=== PATIENT | female | born 1990 | race Caucasian/White ===

== ENCOUNTER → 2018-10-14 14:12 | Outpatient (CLI) | payer SELFPAY ==
[2018-10-18 10:48] LABS: HPV Reflexed? NOT INDICATED
== END ==
PROVIDERS: Visit Provider Obstetrics & Gynecology
DX: Z12.4 Encounter for screening for malignant neoplasm of cervix (principal)
CPT/HCPCS: 88175; G0145

== ENCOUNTER → 2018-11-02 15:10 | Outpatient (CLI) | payer MEDICAID, SELFPAY | PROVIDERS: Referring Provider Otolaryngology; Visit Provider Otolaryngology | DX: J32.9 Chronic sinusitis, unspecified (principal) | CPT/HCPCS: 87070; 87205 ==

== ENCOUNTER → 2019-05-24 15:17 | Outpatient (CLI) | payer MEDICAID, SELFPAY | PROVIDERS: Family Provider Family Medicine; PCP Family Medicine; Referring Provider Otolaryngology Otolaryngology/Facial Plastic Surgery; Visit Provider Otolaryngology Otolaryngology/Facial Plastic Surgery | DX: J02.9 Acute pharyngitis, unspecified (principal) | CPT/HCPCS: 87070; 87186 ==

== ENCOUNTER → 2019-06-22 15:00 | Outpatient (CLI) | payer MEDICAID, SELFPAY | PROVIDERS: Family Provider Family Medicine; PCP Family Medicine; Referring Provider Otolaryngology Otolaryngology/Facial Plastic Surgery; Visit Provider Otolaryngology Otolaryngology/Facial Plastic Surgery | DX: Z86.14 Personal history of Methicillin resistant Staphylococcus aureus infection (principal) | CPT/HCPCS: 87070; 87205 ==

== ENCOUNTER → 2020-08-01 15:49 | Outpatient (CLI) | payer OTHER, SELFPAY ==
[2020-08-01 17:56] LABS: Absolute Lymphocyte Count 1.53 X10^3/uL (0.83-4.51); Absolute Neutrophil Count 6.1 X10^3/uL (2.0-7.7); Basophil# 0.04 X10^3/uL; Basophil% 0.5 % (0-1); Eosinophil# 0.22 X10^3/uL; Eosinophils% 2.6 % (0-5); Hematocrit 42.8 % (37-47); Hemoglobin 13.5 g/dL (12.0-15.0); Lymphocyte # 1.53 X10^3/ul (4.0); Mean Corp Hgb Conc 31.5 g/dL (32-36); Mean Corpuscular Volume 88.8 fL (81-99); Mean Platelet Vol. 10.1 fl (6.2-12.0); Monocyte# 0.55 X10^3/uL; Monocyte% 6.5 % (0-10); NRBC Flagged by Analyzer 0 % (0-5); Neutrophil # 6.13 X10^3/uL (2.7-7.7); Platelet Count 282 K/mm3 (150-450); RBC Distribution Width CV 12.9 % (11.6-14.6); RBC Distribution Width SD 42.1 fl (35.1-43.9); Red Blood Count 4.82 M/mm3 (4.2-5.4); White Blood Count 8.5 K/mm3 (4.4-11.0)
[2020-08-02 09:34] LABS: HIV - WCH Non-Reactive (Nonreactive); Hepatitis B Surface Antigen Non-Reactive (Nonreactive); Hepatitis C Antibody Non-Reactive (Nonreactive); Rubella IgG Reactive (Nonreactive)
[2020-08-03 03:40] LABS: Prenatal RPR NONREACTIVE (NONREACTIVE)
[2020-08-03 20:08] LABS: Chlamydia By Nucleic Acid AMP Negative (Negative)
[2020-08-04 07:51] LABS: Gonococcus By Nucleic Acid AMP Negative (Negative)
[2020-08-07 12:53] LABS: HPV APTIMA, High Risk Negative (Negative)
== END ==
PROVIDERS: PCP Family Medicine; Visit Provider Obstetrics & Gynecology
DX: Z12.4 Encounter for screening for malignant neoplasm of cervix (principal); Z11.3 Encounter for screening for infections with a predominantly sexual mode of transmission; Z34.81 Encounter for supervision of other normal pregnancy, first trimester
CPT/HCPCS: 36415; 85025; 86703; 86762; 86803; 87086; 87340; 87491; 87591; 87624; 88175; G0145

== ENCOUNTER → 2020-12-08 15:27 | Outpatient (CLI) | payer OTHER, SELFPAY ==
[2020-12-08 15:54] LABS: Hematocrit 37.2 % (37-47); Mean Corp Hgb Conc 32.3 g/dL (32-36); Mean Corpuscular Hgb 29.1 pg (27.0-32.0); Mean Corpuscular Volume 90.3 fL (81-99); Mean Platelet Vol. 10.1 fl (6.2-12.0); Platelet Count 224 K/mm3 (150-450); RBC Distribution Width CV 13.2 % (11.6-14.6); RBC Distribution Width SD 42.8 fl (35.1-43.9); Red Blood Count 4.12 M/mm3 (4.2-5.4)
[2020-12-08 16:24] LABS: Glucose Challenge Gest 1H 50g 149 mg/dL (70-140)
== END ==
PROVIDERS: PCP Family Medicine; Visit Provider Obstetrics & Gynecology
DX: Z34.82 Encounter for supervision of other normal pregnancy, second trimester (principal)
CPT/HCPCS: 36415; 82950; 85027

== ENCOUNTER → 2020-12-12 06:52 | Outpatient (CLI) | payer OTHER, SELFPAY ==
[2020-12-12 08:56] LABS: Glucose GTT-Gestation. Fasting 74 mg/dL (<105)
[2020-12-12 10:09] LABS: Glucose GTT-Gestational 1 Hr 122 mg/dL (<190)
[2020-12-12 10:21] LABS: Glucose GTT-Gestational 2 Hr 109 mg/dL (<165)
[2020-12-12 11:30] LABS: Glucose GTT-Gestational 3 Hr 65 L (<145)
== END ==
PROVIDERS: PCP Family Medicine; Referring Provider Obstetrics & Gynecology; Visit Provider Obstetrics & Gynecology
DX: O24.912 Unspecified diabetes mellitus in pregnancy, second trimester (principal); Z3A.00 Weeks of gestation of pregnancy not specified
CPT/HCPCS: 36415; 82951; 82952

== ENCOUNTER → 2021-01-02 16:31 | Outpatient (CLI) | payer OTHER, SELFPAY | PROVIDERS: PCP Family Medicine; Visit Provider Obstetrics & Gynecology | DX: Z34.83 Encounter for supervision of other normal pregnancy, third trimester (principal) | CPT/HCPCS: 36415; 86850 ==

== ENCOUNTER → 2021-02-27 17:17 | Outpatient (CLI) | payer OTHER, SELFPAY | PROVIDERS: PCP Family Medicine; Visit Provider Obstetrics & Gynecology | DX: Z36.85 Encounter for antenatal screening for Streptococcus B (principal) | CPT/HCPCS: 87081 ==

== ENCOUNTER 2021-03-26 17:05 | Outpatient (CLI) | payer OTHER, SELFPAY ==
[2021-03-26 17:13] VITALS: BMI 38.5
[2021-03-26 17:41] VITALS: PULSE 61; TEMP 36.4; O2SAT 97
[2021-03-26 17:47] VITALS: BP 125/67; PULSE 61; O2SAT 94
[2021-03-26 18:04] LABS: ROM Internal Control Test YES-OK TO RESULT pt. (Internal QC); ROM Patient Test Negative (Negative)
--- NOTE | 2021-03-26 21:49 | OB.TRI.NOTE ---
HPI - General HPI Narrative STEFANIE TA, is a 30 F who presents with leakage of fluid PFSH PFSH Home Medications hydroxyzine pamoate 25 mg PO TID PRN PRN #10 capsule 03/20/15 [Rx Last Taken Unknown] Tiffany 1 tab PO.IVFORM DAILY 03/26/21 [History Last Taken Unknown] Prenatabs FA 1 tab PO.IVFORM DAILY 03/26/21 [History Last Taken Unknown] Allergy/AdvReac Type Severity Reaction Status Date / Time ENVIRONMENTAL Allergy Other Uncoded 03/19/19 15:41 Social History (System 03/19/19 @ 15:41 by Beth Matson) Smoking Status: Never smoker NST FHR Rate Baby A Baseline: 130 Variability:: Moderate Accelerations:: 15 x 15 Decelerations:: None NST Reactive:: Yes Uterine Activity:: Few contractions Assessment & Plan (1) : PLAN: Arrived with leakage of fluid. Ruled out rupture. Okay to discharge home . okay to follow-up at scheduled appointments
== END 2021-03-26 18:38 | disposition home or self-care (01) ==
LOC: WPOUT 17:11 → WP 17:11
PROVIDERS: PCP Family Medicine; Visit Provider Obstetrics & Gynecology
DX: Z34.90 Encounter for supervision of normal pregnancy, unspecified, unspecified trimester (principal)
CPT/HCPCS: 59025; 59050; 84112; 99218; G0378

== ENCOUNTER 2021-03-31 10:18 | Outpatient (CLI) | payer OTHER, SELFPAY ==
[2021-03-31 10:31] VITALS: BMI 38.3
[2021-03-31 10:37] VITALS: TEMP 36.3
[2021-03-31 10:38] VITALS: BP 143/85; PULSE 85
[2021-03-31 11:24] LABS: ROM Internal Control Test YES-OK TO RESULT pt. (Internal QC); ROM Patient Test Negative (Negative)
--- NOTE | 2021-03-31 11:38 | OB.TRI.NOTE ---
HPI - General HPI Narrative STEFANIE TA, is a 30 F who presents with leakage of fluid PFSH PFSH Home Medications Tiffany 1 tab PO.IVFORM DAILY 03/26/21 [History Last Taken 03/31/21] Prenatabs FA 1 tab PO.IVFORM DAILY 03/26/21 [History Last Taken 03/31/21] famotidine [Pepcid AC] 10 mg PO BID 03/31/21 [History Last Taken 03/30/21] Allergy/AdvReac Type Severity Reaction Status Date / Time ENVIRONMENTAL Allergy Other Uncoded 03/19/19 15:41 Social History (System 03/19/19 @ 15:41 by Beth Matson) Smoking Status: Never smoker NST FHR Rate Baby A Baseline: 130 Variability:: Moderate Accelerations:: 15 x 15 NST Reactive:: Yes Uterine Activity:: Few contractions Assessment & Plan (1) : PLAN: Patient arrives with leakage of fluid, negative ROM. Ruled out rupture. Okay to discharge home and follow-up at scheduled appointments
== END 2021-03-31 11:44 | disposition home or self-care (01) ==
LOC: WPOUT 10:26 → WP 10:27
PROVIDERS: PCP Family Medicine; Referring Provider Obstetrics & Gynecology; Visit Provider Obstetrics & Gynecology
DX: Z34.90 Encounter for supervision of normal pregnancy, unspecified, unspecified trimester (principal)
CPT/HCPCS: 59025; 59050; 84112; 99218; G0378

== ENCOUNTER 2021-04-02 04:50 | Inpatient (IN) | payer OTHER, SELFPAY ==
[2021-04-01 23:56] VITALS: PULSE 66; O2SAT 98
[2021-04-02] VITALS (38 sets, daily range): BP systolic 90–151; BP diastolic 44–91; PULSE 58–100; RESP 16–18; TEMP 35.4–37.5; O2SAT 96–99; BMI 38.3
[2021-04-02] MEDS: Lactated Ringers 1,000 ML 50 ML IV (05:00)
[2021-04-02 05:29] LABS: Absolute Lymphocyte Count 1.34 X10^3/uL (0.83-4.51); Absolute Neutrophil Count 10.6 X10^3/uL (2.0-7.7); Basophil# 0.02 X10^3/uL; Basophil% 0.2 % (0-1); Eosinophil# 0.11 X10^3/uL; Eosinophils% 0.9 % (0-5); Hematocrit 40.9 % (37-47); Hemoglobin 13.2 g/dL (12.0-15.0); Lymphocyte # 1.34 X10^3/ul (0.83-4.51); Lymphocyte % 10.4 % (19-41); Mean Corp Hgb Conc 32.3 g/dL (32-36); Mean Corpuscular Hgb 28.9 pg (27.0-32.0); Mean Corpuscular Volume 89.5 fL (81-99); Mean Platelet Vol. 11.4 fl (6.2-12.0); Monocyte% 6.2 % (0-10); NRBC Flagged by Analyzer 0 % (0-5); Neutrophil % 81.8 % (47-70); Platelet Count 216 K/mm3 (150-450); RBC Distribution Width CV 13.5 % (11.6-14.6); RBC Distribution Width SD 44.4 fl (35.1-43.9); Red Blood Count 4.57 M/mm3 (4.2-5.4); White Blood Count 12.9 K/mm3 (4.4-11.0)
--- NOTE | 2021-04-02 06:06 | PCM.HP.BLA ---
History and Physical Date of Admission: 04/02/21 Chief complaint: Contractions History of present illness: 30-year-old G1, P0 at 41 weeks and 0 days with RENAE 03/26/2021 by LMP arrives with contractions. Denies headache, chest pain, shortness of breath, nausea vomiting, right upper quadrant pain. Patient states good movement. Obstetric history: G1: Current Past medical history: None Medications: vitamin Past surgical history: Tonsils and adenoids, myringotomy, wisdom teeth extraction Allergies: No known drug allergies Family history: Denies history DVT or PE Social history: Denies smoking, alcohol use, drug use Review of systems: Besides the above pertinent positives a full review of systems was performed and found to be negative Physical exam: Vitals: Blood pressure 112/60 pulse 86 temp 99.1 General: Normal-appearing no acute distress HEENT: Normocephalic atraumatic no cervical of adenopathy Cardiac/respiratory: No use of accessory muscles, nonlabored breathing Abdomen: Soft, nontender, gravid Extremities: No peripheral edema normal peripheral pulses Psych: Normal affect normal demeanor nonpressured speech Labs: White blood cell count 12.9 hemoglobin 13.2 hematocrit 40.9% platelets 216. Assessment plan: 30-year-old G1, P0 at 41 weeks arrives in labor Admit labor and delivery CEFM GBS negative Educated patient on epidural and AROM. At this time for expectant management Routine orders Anesthesia to see
[2021-04-02] MEDS: Mag Hydrox/Al Hydrox/Simeth 30 ML UDC PO (08:11)
--- NOTE | 2021-04-02 12:49 | PN.OBGYN_ITS ---
Subjective Subjective Patient going natural, tolerating painful contractions Objective Data Objective Data Vital Signs: Vital Signs Temp Pulse BP Pulse Ox 98.2 F 74 135/77 H 99 04/02/21 12:27 04/02/21 12:27 04/02/21 12:27 04/02/21 09:36 Weight: 259 lb 9.6 oz Body Mass Index (BMI) 38.3 Intake & Output: Intake and Output for Last 24 Hours 03/31/21 04/01/21 04/02/21 23:59 23:59 23:59 Intake Total 1600 / 1600 Output Total 300 / 300 Balance 1300 / 1300 Lab / Micro Data Result Diagrams: 04/02/21 05:20 Labs: Laboratory Results - last 24 hr 04/02/21 05:20: WBC 12.9 H, RBC 4.57, Hgb 13.2, Hct 40.9, MCV 89.5, MCH 28.9, MCHC 32.3, RDW Std Deviation 44.4 H, RDW Coeff of Billie 13.5, Plt Count 216, MPV 11.4, Immature Gran % (Auto) 0.500, Neut % (Auto) 81.8 H, Lymph % (Auto) 10.4 L, [place] % (Auto) 6.2, Eos % (Auto) 0.9, Baso % (Auto) 0.2, Absolute Neuts (auto) 10.6 H, Absolute Lymphs (auto) 1.34, Nucleated RBC % 0 04/02/21 05:20: Blood Type O NEGATIVE, Antibody Screen NEGATIVE Micro: Microbiology 04/02/21 06:30 Nasal Secretion SARS-CoV-2 Antigen (Rapid) - Final Physical Exam Const alert, oriented x3, average body habitus, healthy appearing and well nourished HEENT normocephalic and moist oral mucous membranes Head and Scalp: atraumatic Face and Sinus: normal facial exam Neck full ROM Resp normal respiratory effort, no retractions and no use of accessory muscles Narrative: Cervical exam 8/80/0 Extremity normal to inspection and full ROM Skin no rashes or lesions noted Psych mental status grossly normal, affect normal, speech normal and activity/motor behavior normal Assessment & Plan (1) : PLAN: Patient seen and examined. Going natural, tolerating painful contractions. AROM clear fluid. We will continue current management
[2021-04-02] MEDS: Oxytocin 30 units/NS 500 ml 30 UNITS/500 ML IV.SOLN IV (16:15)
--- NOTE | 2021-04-02 16:46 | PN.OBGYN_ITS ---
Subjective Subjective Pushing with contractions Objective Data Objective Data Vital Signs: Vital Signs Temp Pulse BP Pulse Ox 96.4 F L 100 128/85 H 99 04/02/21 16:25 04/02/21 16:25 04/02/21 16:25 04/02/21 16:25 Weight: 259 lb 9.6 oz Body Mass Index (BMI) 38.3 Intake & Output: Intake and Output for Last 24 Hours 03/31/21 04/01/21 04/02/21 23:59 23:59 23:59 Intake Total 1625.27 / 1625.27 Output Total 300 / 300 Balance 1325.27 / 1325.27 Lab / Micro Data Result Diagrams: 04/02/21 05:20 Labs: Laboratory Results - last 24 hr 04/02/21 05:20: WBC 12.9 H, RBC 4.57, Hgb 13.2, Hct 40.9, MCV 89.5, MCH 28.9, MCHC 32.3, RDW Std Deviation 44.4 H, RDW Coeff of Billie 13.5, Plt Count 216, MPV 11.4, Immature Gran % (Auto) 0.500, Neut % (Auto) 81.8 H, Lymph % (Auto) 10.4 L, [place] % (Auto) 6.2, Eos % (Auto) 0.9, Baso % (Auto) 0.2, Absolute Neuts (auto) 10.6 H, Absolute Lymphs (auto) 1.34, Nucleated RBC % 0 04/02/21 05:20: Blood Type O NEGATIVE, Antibody Screen NEGATIVE Micro: Microbiology 04/02/21 06:30 Nasal Secretion SARS-CoV-2 Antigen (Rapid) - Final Physical Exam Const alert, oriented x3, average body habitus, healthy appearing and well nourished HEENT normocephalic and moist oral mucous membranes Head and Scalp: atraumatic Face and Sinus: normal facial exam Neck full ROM Resp normal respiratory effort, no retractions and no use of accessory muscles GI normal to inspection, nondistended, normoactive bowel sounds Narrative: Cervical exam 10/100/+1 mild to moderate caput Psych mental status grossly normal, affect normal, speech normal and activity/motor behavior normal Assessment & Plan (1) : PLAN: Patient seen and examined. Patient has been pushing greater than 3 hours. Based on pelvic exam poor candidate for vacuum or forceps delivery. Patient very exhausted from pushing, discussed continued pushing versus primary section for failure to progress maternal exhaustion. Risk benefits alternatives of both scenarios discussed. Patient elects for primary section, patient understands risk of the procedure include but are not limited to visceral or vascular injury, prolonged hospitalization, blood loss and need for transfusion, reoperation. Patient dates understanding wish to proceed. All questions answered. For now 2 g Ancef and 500 mg of azithromycin
[2021-04-02] MEDS: Sodium Citrate/Citric Acid 30 ML UDC PO (17:14)
[2021-04-02] MEDS: Cefazolin 2 GM in 0.9% Normal Saline 100 ML IV (17:16)
--- NOTE | 2021-04-02 18:37 | OP.PCM_ITS ---
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 Normal uterus, tubes, and ovaries. Right lateral extension of the hysterotomy hemostatic with interrupted suture and 5 cc of FloSeal Consent: Patient arrived in labor at term, soon became complete, pushed for greater than 3 hours and had failure to progress maternal exhaustion elected for primary section. Patient understood the risk of the procedure include but are not limited to visceral or vascular injury, prolonged hospitalization, blood loss and need for transfusion, reoperation. Patient stated understanding and wished to proceed. All questions were answered and consent was signed. Procedure: Patient was brought back to the OR where spinal anesthesia was found to be adequate. 2 g of Ancef and 500 mg of azithromycin were given for infection prophylaxis. Patient was prepared and draped in a supine position with a leftward tilt. A Pfannenstiel incision was made at the skin with a scalpel. The incision was carried down to the fascia with a scalpel. The fascia was excised and extended laterally. Inferior aspect of the fascia was grasped and the underlying rectus and pyramidalis muscle were dissected off sharply with Paulino scissors. In a similar fashion the superior aspect the fascia was grasped and the underlying rectus muscle was dissected off sharply. Rectus muscle was dissected at the midline down to the level of the pubic symphysis. Preperitoneal fatty tissue was noted and peritoneum was entered bluntly. Bladder blade was inserted and vesicouterine peritoneum was identified. Low transverse hysterotomy was made. Hand was placed into the incision and head was brought into the hysterotomy and gentle fundal pressure was applied after the bladder blade was removed. Head and shoulders were delivered with ease. Cord was cut clamped. Baby is handed off to nursing. Placenta was delivered via cord traction and fundal massage. IV oxytocin was initiated to facilitate uterine contractions. Uterus was wiped out with a dry laparotomy sponge in order to remove remaining placental membranes. Uterus was exteriorized. Uterus was closed in continuous running fashion. Second layer was performed. Right lateral extension was noted in interrupted stitch was placed along with 5 cc of FloSeal. Good hemostasis was noted. Uterus was placed back in the abdominal cavity and good hemostasis was noted. Rectus muscle were reapproximated with horizontal mattress sutures. Fascia was closed in a continuous running fashion. Skin was closed in a subcuticular fashion. All counts correct x2. Patient tolerated the procedure well and was brought to recovery in stable condition.
[2021-04-02] MEDS: Oxytocin 30 units/NS 500 ml 30 UNITS/500 ML IV.SOLN 167 UNITS IV (19:18)
[2021-04-02] MEDS: Ketorolac 30 MG/ML Syringe IV (19:21)
[2021-04-02] MEDS: Acetaminophen 500 MG Tablet 1000 MG PO (19:21)
[2021-04-02] MEDS: 0.9% Saline Lock 10 ML Syringe IV (19:22)
[2021-04-02] MEDS: Lactated Ringers 500 ML IV.SOLN. IV (19:55)
[2021-04-02] MEDS: Lactated Ringers 1,000 ML 100 ML IV (20:22)
[2021-04-03] VITALS (9 sets, daily range): BP systolic 97–126; BP diastolic 45–70; PULSE 73–85; RESP 14–18; TEMP 36.5–37.2; O2SAT 96–99
[2021-04-03] MEDS: Ketorolac 30 MG/ML Syringe IV ×3 (01:09→13:18)
[2021-04-03] MEDS: Acetaminophen 500 MG Tablet 1000 MG PO ×4 (01:10→19:49)
[2021-04-03] MEDS: 0.9% Saline Lock 10 ML Syringe IV ×4 (05:50→13:20)
[2021-04-03 06:13] LABS: Hemoglobin 9.6 g/dL (12.0-15.0); Mean Corp Hgb Conc 33.1 g/dL (32-36); Mean Corpuscular Hgb 29.6 pg (27.0-32.0); Mean Corpuscular Volume 89.5 fL (81-99); Platelet Count 168 K/mm3 (150-450); RBC Distribution Width CV 13.7 % (11.6-14.6); RBC Distribution Width SD 45.1 fl (35.1-43.9); Red Blood Count 3.24 M/mm3 (4.2-5.4); White Blood Count 13.6 K/mm3 (4.4-11.0)
--- NOTE | 2021-04-03 08:06 | PCM.PN.OB ---
Subjective Subjective No overnight complaints. Pain well controlled. Objective Data Objective Data Vital Signs: Vital Signs Temp Pulse Resp BP Pulse Ox 98.1 F 85 16 100/51 L 98 04/03/21 05:43 04/03/21 05:43 04/03/21 05:43 04/03/21 05:43 04/03/21 05:43 Oxygen Delivery Method Room Air Weight: 259 lb 9.6 oz Body Mass Index (BMI) 38.3 Intake & Output: Intake and Output for Last 24 Hours 04/01/21 04/02/21 04/03/21 23:59 23:59 23:59 Intake Total 2840.27 / 2840.27 1645 / 1645 Output Total 750 / 750 550 / 550 Balance 2090.27 / 2090.27 1095 / 1095 Lab / Micro Data Result Diagrams: 04/03/21 05:58 Labs: Laboratory Results - last 24 hr 04/03/21 05:58: WBC 13.6 H, RBC 3.24 L, Hgb 9.6 L, Hct 29.0 L, MCV 89.5, MCH 29.6, MCHC 33.1, RDW Std Deviation 45.1 H, RDW Coeff of Billie 13.7, Plt Count 168, MPV 11.0 04/03/21 05:58: Screen NEGATIVE, Baby's Blood Type O POSITIVE, Baby's XAVIER NEGATIVE Micro: Microbiology 04/02/21 06:30 Nasal Secretion SARS-CoV-2 Antigen (Rapid) - Final Physical Exam Const alert, oriented x3, no apparent distress, average body habitus, healthy appearing and well nourished HEENT normocephalic and moist oral mucous membranes Face and Sinus: normal facial exam Neck full ROM Resp normal respiratory effort, no retractions and no use of accessory muscles GI normal to inspection, nondistended, normoactive bowel sounds GI Narrative: Bandage clean dry and intact Extremity normal to inspection, full ROM and no clubbing, cyanosis or edema Skin no rashes or lesions noted and no wounds Psych mental status grossly normal, affect normal, speech normal and activity/motor behavior normal Assessment & Plan (1) delivery delivered: PLAN: Postoperative day 1 status post primary section for failure to progress. Pain well controlled. Breast-feeding. Likely discharge home tomorrow
[2021-04-03] MEDS: Enoxaparin 40 MG/0.4 ML Syringe SC (10:05)
[2021-04-03] MEDS: Senna/Docusate Sodium 1 Tablet PO (13:45)
--- NOTE | 2021-04-03 18:32 | NURSING ---
Notified regarding infants HR in the 80's when RN placed on SPo2 monitor for CCHD. RN reported to nursery RN that was asleep, good tone, and color. SP02 at that time was 97%, HR was auscultated and verified bradycardic. HR was previously 120's today. When was stimulated HR increased to baseline. okay to continue to observe and report any further abnormal findings.
[2021-04-03] MEDS: Ibuprofen 600 MG Tablet PO (19:49)
[2021-04-04] MEDS: Ibuprofen 600 MG Tablet PO ×3 (01:13→13:58)
[2021-04-04] MEDS: Acetaminophen 500 MG Tablet 1000 MG PO ×3 (01:14→13:58)
[2021-04-04 01:27] VITALS: BP 115/63; PULSE 78; RESP 20; TEMP 36.9; O2SAT 96
--- NOTE | 2021-04-04 07:20 | NURSING ---
bedside report given to Nilsa Todd RN and Yessi Ruggiero RN who are assuming care of pt at this time
[2021-04-04 08:11] VITALS: BP 107/58; PULSE 78; RESP 16; TEMP 36.8
--- NOTE | 2021-04-04 09:03 | PCM.PN.OB ---
Subjective Subjective No issues overnight. Pain is well controlled with medications. She is out of bed, ambulating, passing flatus. No bowel movement yet. Denies heavy lochia. She is . Objective Data Objective Data Vital Signs: Vital Signs Temp Pulse Resp BP Pulse Ox 97.9 F 68 16 139/66 H 96 04/04/21 13:56 04/04/21 13:56 04/04/21 13:56 04/04/21 13:56 04/04/21 01:27 Oxygen Delivery Method Room Air Weight: 117.753 kg Body Mass Index (BMI) 38.3 Intake & Output: Intake and Output for Last 24 Hours 04/02/21 04/03/21 04/04/21 23:59 23:59 23:59 Intake Total 2840.27 / 2840.27 1645 / 1645 Output Total 750 / 750 1250 / 1250 Balance 2090.27 / 2090.27 395 / 395 Lab / Micro Data Result Diagrams: 04/03/21 05:58 Micro: Microbiology 04/02/21 06:30 Nasal Secretion SARS-CoV-2 Antigen (Rapid) - Final Physical Exam Const alert, oriented x3 and no apparent distress Resp normal respiratory effort, normal air movement and clear to auscultation bilaterally Cardio regular rate, regular rhythm, S1 normal heart sound and S2 normal heart sound GI normal to inspection, nondistended, normoactive bowel sounds, soft to palpation, non-tender and non-distended GI Narrative: incisional dressing minimally saturated, dry and intact Manual OB Exam: other lochia scant Uterus Palpation: uterus fundus firm Extremity no calf tenderness Assessment & Plan (1) delivery delivered: PLAN: POD#2 /sp PLTCS O neg, O positive - Rhogam Rubella immune Hgb 9.6 Plan for d/c home later today if discharged, otherwise d/c home in am.
[2021-04-04] MEDS: Senna/Docusate Sodium 1 Tablet PO (09:59)
[2021-04-04] MEDS: Enoxaparin 40 MG/0.4 ML Syringe SC (10:00)
[2021-04-04 13:56] VITALS: BP 139/66; PULSE 68; RESP 16; TEMP 36.6
--- NOTE | 2021-04-04 16:27 | PCM.DC ---
Discharge Instructions Diet Discharge Diet: No restrictions Activity Discharge Activity: Return to Normal Activity and May Shower May resume sexual activity in: 4-6 weeks Lifting Restrictions: 10 lb Dressing / Incision Call your doctor if you observe: Using more than 1 pad per hour, Shortness of breath, Chest pain, Calf discomfort, Uncontrolled pain and - (Persistent or severe headache) Suture Line Care: Avoid Pulling/Pushing Remove Dressing in: 4 days Cleanse incision/area with: Soap & Water Follow Up Care Please Follow Up With: Shiva Vasquez MD When: 2 weeks for postop visit 6 weeks for visit Test Results: Test results from this visit will be discussed in further detail at your follow-up appointment, if applicable. Discharge Plan Admission Admit Date/Time: 04/02/21 04:50 Primary Reason for Your Visit: section Attending Provider: Shiva Vasquez Primary Care Provider: Benson Sams Instructions Patient Instructions: After a Discharge Orders/Prescriptions Prescriptions: New ibuprofen 600 mg Tablet 600 mg PO Q8H PRN (Reason: pain) Qty: 30 RF: 0 oxycodone 5 mg Tablet 5 mg PO Q6H PRN PRN (Reason: Pain Score 4-10) 7 Days Qty: 15 RF: 0 Continued Tiffany 1 tab PO.IVFORM DAILY RF: 0 Prenatabs FA 1 tab PO.IVFORM DAILY RF: 0 famotidine [Pepcid AC] 10 mg Tablet 10 mg PO BID RF: 0 Referrals / Follow Up: Benson Sams MD [Primary Care Provider] - Disposition Disposition (needs filled in before D/C Order can be placed): Home, Self Care
[2021-04-04 18:25] VITALS: BP 124/66; PULSE 81; RESP 16; TEMP 36.7
== END 2021-04-04 19:00 | disposition home or self-care (01) | DRG 788 ==
LOC: WPOUT 04:51 → WP 04:51
PROVIDERS: Admitting Provider Obstetrics & Gynecology; PCP Family Medicine; Referring Provider Obstetrics & Gynecology; Visit Provider Obstetrics & Gynecology
DX: O75.81 Maternal exhaustion complicating labor and delivery (principal); O62.2 Other uterine inertia; O48.0 Post-term pregnancy; Z3A.41 41 weeks gestation of pregnancy; Z37.0 Single live birth
CPT/HCPCS: 59025; 59050; 85025; 85027; 85461; 86850; 86900; 86901; 87426; 90384; 99218; J7120; A4216; G0378; J2405; J2790

== ENCOUNTER 2021-07-04 18:22 | Outpatient (CLI) | payer OTHER, SELFPAY ==
[2021-07-04 18:33] VITALS: BP 123/85; PULSE 96; RESP 16; TEMP 37.2; O2SAT 100; BMI 33.0
[2021-07-04] MEDS: 0.9% Saline Lock 10 ML Syringe IV (18:40)
[2021-07-04 19:10] VITALS: BP 119/78; PULSE 81; RESP 16; TEMP 36.8; O2SAT 98
[2021-07-04 19:50] VITALS: BP 121/83; PULSE 85; RESP 16; TEMP 37; O2SAT 100
== END 2021-07-04 20:12 | disposition home or self-care (01) ==
LOC: MS3OUT 18:23 → MS3 18:23
PROVIDERS: PCP Family Medicine; Referring Provider Nurse Practitioner Adult Health; Visit Provider Nurse Practitioner Adult Health
DX: Z23 Encounter for immunization (principal); U07.1 COVID-19
CPT/HCPCS: J7050; M0245; Q0245; A4216

== ENCOUNTER → 2022-06-18 | Outpatient (CLI) | payer OTHER, SELFPAY ==
[2022-06-26 14:54] LABS: HPV APTIMA, High Risk Negative (Negative)
== END | disposition home or self-care (01) ==
LOC: LABSPEC 16:12
PROVIDERS: PCP Family Medicine; Visit Provider Obstetrics & Gynecology
DX: Z12.4 Encounter for screening for malignant neoplasm of cervix (principal)
CPT/HCPCS: 36415; 87624; 88175; G0145

== ENCOUNTER → 2023-04-12 | Outpatient (CLI) | payer BC, SELFPAY ==
--- NOTE | 2023-04-12 07:57 | US_ITS ---
Examination: Right upper quadrant ultrasound INDICATION: Intermittent right upper quadrant pain. TECHNIQUE: A dedicated right upper quadrant ultrasound was obtained including Doppler imaging. COMPARISON: None FINDINGS: LIVER: The liver is diffusely echogenic. There is hepatomegaly. No discrete lesions are visualized. GALLBLADDER: There are no gallstones visualized. There is no gallbladder wall thickening or pericholecystic fluid. The common bile duct measures 3.3 mm. There is no positive sonographic Talley''s sign. Pancreas: The pancreas is within normal limits. There is no pancreatic ductal dilatation. RIGHT KIDNEY: The right kidney measures 12.6 cm in length and is within normal limits. US/Abdomen Limited IMPRESSION: Fatty infiltration of the liver associated with hepatomegaly. Electronically Signed: Marsha Hernandez MD at 8:45 EDT ,
== END | disposition home or self-care (01) ==
LOC: US 07:54
PROVIDERS: PCP Family Medicine; Referring Provider Family Medicine; Visit Provider Family Medicine
DX: R10.11 Right upper quadrant pain (principal)
CPT/HCPCS: 76705

== ENCOUNTER → 2023-04-28 | Outpatient (CLI) | payer BC, SELFPAY ==
--- NOTE | 2023-04-28 14:05 | PFTCOMP ---
COMPLETE PULMONARY FUNCTION TEST INTERPRETATION Brief HPI: Patient is a 32-year-old female, currently under the care of Dr. Gerber, who presents to [facility] for complete pulmonary function tests secondary to diagnosis of chest discomfort. Respiratory therapist reports good effort and reproducible results. Interpretation: Forced expiration spirometry shows no large airways obstructive ventilatory defect with an FEV1 of 109% predicted. There is no significant bronchodilator response by strict ATS criteria. Spirograms are of good quality and plateau normally. The respiratory flow volume loop shows a normal pattern. Lung volumes by body plethysmography show a normal total lung capacity at 6.24 L, 108% predicted. All other lung volumes are within normal limits. Diffusion capacity by carbon monoxide is normal at 118% predicted. The airway resistance is normal. No previous pulmonary function tests were available for review. Impression: These pulmonary function tests are within normal limits.
== END | disposition home or self-care (01) ==
PROVIDERS: PCP Family Medicine; Referring Provider Family Medicine; Visit Provider Family Medicine
DX: R07.89 Other chest pain (principal)
CPT/HCPCS: 94060; 94726; 94729

== ENCOUNTER → 2023-05-31 | Outpatient (CLI) | payer BC, SELFPAY ==
[2023-05-31 10:34] LABS: Absolute Lymphocyte Count 1.84 X10^3/uL (0.83-4.51); Absolute Neutrophil Count 4.6 X10^3/uL (2.0-7.7); Basophil# 0.04 X10^3/uL; Basophil% 0.5 % (0-1); Eosinophil# 0.28 X10^3/uL; Eosinophils% 3.8 % (0-5); Hematocrit 42.4 % (37-47); Hemoglobin 13.4 g/dL (12.0-15.0); Lymphocyte # 1.84 X10^3/ul (0.83-4.51); Lymphocyte % 25.3 % (19-41); Mean Corp Hgb Conc 31.6 g/dL (32-36); Mean Corpuscular Hgb 28.8 pg (27.0-32.0); Mean Platelet Vol. 10.3 fl (6.2-12.0); Monocyte# 0.52 X10^3/uL; Monocyte% 7.1 % (0-10); NRBC Flagged by Analyzer 0 % (0-5); Neutrophil # 4.58 X10^3/uL (2.7-7.7); Platelet Count 271 K/mm3 (150-450); RBC Distribution Width CV 12.6 % (11.6-14.6); RBC Distribution Width SD 41.5 fl (35.1-43.9); Red Blood Count 4.66 M/mm3 (4.2-5.4); White Blood Count 7.3 K/mm3 (4.4-11.0)
[2023-05-31 10:57] LABS: AST(SGOT) 14 U/L (15-37); Alanine Aminotransfer ALT/SGPT 33 U/L (13-56); Albumin, Serum 3.5 g/dL (3.2-5.0); Alkaline Phosphatase 49 U/L (45-117); Anion Gap 4 (5-15); BUN 14 mg/dL (7-18); BUN/Creat Ratio 22.5 RATIO (10-20); Calcium,Total 8.4 mg/dL (8.5-10.1); Chloride 108 mmol/L (98-107); Cholesterol 162 mg/dL (200); Creatinine, Serum 0.62 mg/dL (0.55-1.02); EST Glomerular Filtration Rate 117 mL/min (>60); Est Glom Filt Rate - Afr Amer 141 mL/min (>60); Globulin 3.5 g/dL (2.2-4.2); Glucose 81 mg/dL (74-106); High Density Lipoprotein 43 mg/dL; Potassium 3.9 mmol/L (3.5-5.1); Sodium Level 139 mmol/L (136-145); Triglycerides 128 mg/dL; Very Low Density Lipoprotein 26 mg/dL (5-40)
== END | disposition home or self-care (01) ==
PROVIDERS: PCP Family Medicine; Referring Provider Family Medicine; Visit Provider Family Medicine
DX: Z00.00 Encounter for general adult medical examination without abnormal findings (principal); Z13.220 Encounter for screening for lipoid disorders; Z13.1 Encounter for screening for diabetes mellitus
CPT/HCPCS: 36415; 80053; 80061; 85025

== ENCOUNTER → 2024-07-19 | Outpatient (CLI) | payer MEDICAID, SELFPAY ==
[2024-07-20 22:06] LABS: Chlamydia By Nucleic Acid AMP Negative (Negative); Gonococcus By Nucleic Acid AMP Negative (Negative)
== END | disposition home or self-care (01) ==
LOC: BWCLAB 11:31
PROVIDERS: PCP Family Medicine; Referring Provider Obstetrics & Gynecology; Visit Provider Obstetrics & Gynecology
DX: Z34.90 Encounter for supervision of normal pregnancy, unspecified, unspecified trimester (principal)
CPT/HCPCS: 87086; 87088; 87491; 87591

== ENCOUNTER → 2024-08-16 | Outpatient (CLI) | payer BC, SELFPAY ==
[2024-08-16 12:28] LABS: Absolute Lymphocyte Count 1.28 X10^3/uL (0.83-4.51); Absolute Neutrophil Count 6.5 X10^3/uL (2.0-7.7); Basophil# 0.04 X10^3/uL; Basophil% 0.5 % (0-1); Eosinophil# 0.17 X10^3/uL; Hematocrit 38.4 % (37-47); Hemoglobin 12.6 g/dL (12.0-15.0); Lymphocyte # 1.28 X10^3/ul (0.83-4.51); Lymphocyte % 15.2 % (19-41); Mean Corp Hgb Conc 32.8 g/dL (32-36); Mean Corpuscular Hgb 28.9 pg (27.0-32.0); Mean Corpuscular Volume 88.1 fL (81-99); Monocyte# 0.44 X10^3/uL; Monocyte% 5.2 % (0-10); NRBC Flagged by Analyzer 0 % (0-5); Neutrophil # 6.46 X10^3/uL (2.7-7.7); Neutrophil % 76.6 % (47-70); Platelet Count 234 K/mm3 (150-450); Red Blood Count 4.36 M/mm3 (4.2-5.4); White Blood Count 8.4 K/mm3 (4.4-11.0)
[2024-08-16 13:50] LABS: Hemoglobin A1c 5.3 % (3.8-5.6)
[2024-08-16 16:01] LABS: Hepatitis B Surface Antigen Non-Reactive (Nonreactive); Hepatitis C Antibody Non-Reactive (Nonreactive); Rubella IgG Reactive (Nonreactive); Syphilis Antibodies Non-reactive
[2024-08-17 22:09] LABS: HIV - WCH Non-Reactive (Nonreactive)
== END | disposition home or self-care (01) ==
PROVIDERS: PCP Family Medicine; Referring Provider Obstetrics & Gynecology; Visit Provider Obstetrics & Gynecology
DX: Z34.81 Encounter for supervision of other normal pregnancy, first trimester (principal)

== ENCOUNTER → 2024-12-06 | Outpatient (CLI) | payer BC, SELFPAY ==
[2024-12-06 10:37] LABS: Absolute Lymphocyte Count 1.17 X10^3/uL (0.83-4.51); Absolute Neutrophil Count 8.3 X10^3/uL (2.0-7.7); Basophil# 0.02 X10^3/uL; Basophil% 0.2 % (0-1); Eosinophil# 0.14 X10^3/uL; Eosinophils% 1.4 % (0-5); Hematocrit 36.1 % (37-47); Hemoglobin 11.9 g/dL (12.0-15.0); Lymphocyte # 1.17 X10^3/ul (0.83-4.51); Lymphocyte % 11.5 % (19-41); Mean Corpuscular Hgb 28.6 pg (27.0-32.0); Mean Corpuscular Volume 86.8 fL (81-99); Mean Platelet Vol. 10.3 fl (6.2-12.0); Monocyte# 0.52 X10^3/uL; Monocyte% 5.1 % (0-10); NRBC Flagged by Analyzer 0 % (0-5); Neutrophil # 8.26 X10^3/uL (2.7-7.7); Neutrophil % 81.1 % (47-70); Platelet Count 208 K/mm3 (150-450); RBC Distribution Width CV 14.1 % (11.6-14.6); RBC Distribution Width SD 44.6 fl (35.1-43.9); Red Blood Count 4.16 M/mm3 (4.2-5.4); White Blood Count 10.2 K/mm3 (4.4-11.0)
[2024-12-06 11:43] LABS: Glucose Challenge Gest 1H 50g 130 mg/dL (70-140); HIV Nonreactive (Nonreactive); Syphilis Antibodies Nonreactive (Nonreactive)
== END | disposition home or self-care (01) ==
LOC: BWCLAB 09:54
PROVIDERS: Visit Provider Obstetrics & Gynecology
DX: O09.90 Supervision of high risk pregnancy, unspecified, unspecified trimester (principal); Z3A.00 Weeks of gestation of pregnancy not specified
CPT/HCPCS: 36415; 82950; 85025; 86703; 86780; 86850; 86900; 86901

== ENCOUNTER 2025-01-16 20:38 | Inpatient (IN) | payer OTHER, SELFPAY ==
[2025-01-16] VITALS (8 sets, daily range): BP systolic 111–133; BP diastolic 56–75; PULSE 74–87; RESP 14–16; TEMP 36.2–36.5; O2SAT 92–98; BMI 38.7
--- OUTSIDE RECORDS SUMMARY | 2025-01-16 14:13 | XMS RPT_ITS | CCD ---
Author Organization [facility] Care Team Providers Care 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 Name Role Phone CHRISTIANNE GRIFFIN Unavailable Unavailable *SELF, REFERRED Unavailable Unavailable UNKNOWN, PCP Unavailable Unavailable Benson Das MD Primary Care Provider Benson Das MD Primary Care Provider Dr. Benson Das Primary Care Provider Elza Cui Attending Provider Unavailable MD Oleksandr Katz Primary Care Provider MD Oleksandr Katz Referring Provider [phone] MD Oleksandr Katz Other Provider Dr. Klever Huerta Attending Provider CHRISTIANNE JUNE Attending Unavailable OLEKSANDR KATZ Primary Care Unavailable MARVIN GARNER Referring Unavailable Oleksandr Katz MD Primary Care Provider [phone] Oleksandr Katz MD Referring Provider [phone] Marvin Garner CNM Attending Provider [phone] Dr. Jeaneth Kramer DO Attending Provider Dr. Jeaneth Kramer DO Referring Provider Dr. Sally Cerna MD Attending Provider [phone] Morenita Dickerson CNM Attending Provider [phone] Radha Unger Attending Provider [phone] Oleksandr Katz MD Referring Provider [phone] Dr. Jeaneth Kramer DO Attending Provider Marvin Garner CNM Attending Provider [phone] Oleksandr Katz Referring Unavailable Sally Cerna Attending Unavailable Buzz, Chalon Referring Unavailable Jb BULL, Radha Attending Unavailable Buzz, Chalon Referring Unavailable Vande Velde, Jeaneth Attending Unavailabl e Vande Velde, Jeaneth Attending Unavailabl e Vande Velde, Jeaneth Admitting Unavailabl e Vande Velde, Jeaneth Referring Unavailabl e Buzz, Chalon Primary Care Unavailable Vande Velde, Jeaneth Attending Unavailabl e Vande Velde, Jeaneth Referring Unavailabl e Vande Velde, Jeaneth Attending Unavailabl e Buzz, Chalon Primary Care Unavailable Vande Velde, Jeaneth Attending Unavailabl e Dickerson, Morenita Attending Unavailable Buzz, Chalon Referring Unavailable Buzz, Chalon Primary Care Unavailable Kelin Vance Attending Unavailable Buzz, Chalon Primary Care Unavailable Buzz, Chalon Referring Unavailable Marvin Garner Attending Unavailable Vande Velde, Jeaneth Attending Unavailabl e Buzz, Chalon Primary Care Unavailable Buzz, Chalon Referring Unavailable Sally Cerna Attending Unavailable Buzz, Chalon Referring Unavailable Marvin Garner Attending Unavailable Allergies Allergy Classification Reported Allergen(s) Allergy Type Date of Onset Reaction(s) Facility (1 source) Environmental allergy Allergy to substance 04-02-20 21 Other [facility] Work Phone: (2 sources) hormonal treatments Propensity to adverse reactions 07-04-20 21 dizziness [facility] Work Phone: (4 sources) Desogestrel / Ethinyl Estradiol Drug Allergy 04-27-20 20 Other: See Comments [facility] Work Phone: (4 sources) Dust Allergy to substance 01-16-20 16 Other: See Comments [facility] Work Phone: [phone] (4 sources) Grass pollen Drug Allergy 01-16-20 16 Cough [facility] Work Phone: (4 sources) Animal Dander Drug Allergy 01-16-20 16 Cough [facility] Work Phone: (7 sources) Seasonal Allergies: Uncoded; Translations: [Seasonal Allergies: Uncoded] Allergy to substance 03-27-20 22 NEEDS FOLLOW-UP [facility] (2 sources) Albuterol Drug Allergy 01-17-20 Other [facility] (2 sources) cigarette smoke Allergy to substance 01-17-20 Other [facility] (6 sources) Food Allergies: Uncoded; Translations: [Food Allergies: Uncoded] Allergy to substance 03-31-20 Abd cramps/diarrhe a [facility] Comment on above: Industrial grease/oi l (2 sources) Luteinizing Hormone Analogues Propensity to adverse reactions 01-08-20 dizziness [facility] (2 sources) hormonal prescriptions Allergy to substance 01-17-20 Other [facility] (3 sources) Spironolactone Drug Allergy 12-07-19 Dizzyness [facility] (1 source) Spironolactone Drug Allergy 01-04-20 [facility] Repository Medications Current Medications Medication Drug Class(es) Dates Sig (Normalized) Sig (Original) Wklymwb-Snrhmufp-Arij in-Papaya (2 sources) Start: 01-16-2023 Mpndwak-Iljwaufk-Fws ain-Papaya Active TABLET PO January 16, 2023 12:00am cholecalciferol 0.025 mg oral capsule (5 sources) Vitamin D Start: 01-16-2023 take 1 capsule by mouth once daily Cholecalciferol (Vitamin D3) 25 mcg (1,000 unit) capsule Active 25 ug PO DAILY January 16, 2023 12:00am fexofenadine (11 sources) Histamine-1 Receptor Antagonist Start: 03-26-2021 take 1 tablet by mouth once daily Tiffany Active 1 TABLET SL/PO DAILY March 26, 2021 5:53pm Start: 03-26-2021 End: 07-09-2024 Tiffany Discontinued 1 {tbl} SL/PO DAILY March 26, 2021 12:00am July 09, 2024 12:52pm Start: 03-26-2021 take 1 tablet by aba th once daily Tiffany Active 1 TABLET SL/PO DAILY March 26, 2021 12:00am Start: 03-26-2021 take 1 tablet by aba th once daily Tiffany Active 1 TABLET SL/PO DAILY March 25, 2021 11:00pm Start: 06-26-2010 take 1 tablet by aba th once daily fexofenadine (TIFFANY) 180 mg ORAL tablet Take one(1) tablet daily. 30 Tab 12 06/26/2010 Active Comment on above: Take one(1) tablet d aily. predniSONE 20 mg oral tablet (2 sources) Start: 05-12-2022 End: 05-17-2022 take 2 tablets by mouth once daily predniSONE (DELTASONE) 20 mg tablet Take 2 tablets by mouth once daily for 5 days. 10 tablet 0 05/12/2022 05/17/2022 Active Comment on above: Take 2 tablets by mo cox monett once daily for 5 days. Prenatabs FA (7 sources) Start: 03-26-2021 take 1 tablet by mouth once daily Prenatabs FA Active 1 TABLET SL/PO DAILY March 26, 2021 5:53pm Start: 03-26-2021 Prenatabs FA A ctive 1 {tbl} SL/PO DAILY March 26, 2021 12:00am Start: 03-26-2021 take 1 tablet by aba th once daily Prenatabs FA Active 1 TABLET SL/PO DAILY March 26, 2021 12:00am Start: 03-26-2021 take 1 tablet by aba th once daily Prenatabs FA Active 1 TABLET SL/PO DAILY March 25, 2021 11:00pm Vit C-Zinc Citrate-Elderberr y (Sambucus Elderberry) 30-1.1-25 mg tablet,chewable (5 sources) Start: 01-16-2023 Vit C-Zinc Cit rate-Elderberry (Sambucus Elderberry) 30-1.1-25 mg tablet,chewable Active {tbl} PO January 16, 2023 12:00am Start: 01-16-2023 Vit C-Zinc Cit rate-Elderberry (Sambucus Elderberry) 30-1.1-25 mg tablet,chewable Active TABLET PO January 16, 2023 12:00am Completed/Discontinued Medications Medication Drug Class(es) Dates Sig (Normalized) Sig (Original) amoxicillin 500 mg oral capsule (5 sources) Penicillin-class Antibacterial Start: 09-12-2022 End: 09-22-2022 take 1 capsule by mouth three times daily Amoxicillin 500 mg capsule Discontinued 500 mg PO THREE TIMES A DAY 30 September 12, 2022 1:00am September 21, 2022 1:00am September 22, 2022 1:05am Afszuyz-Eujpjtmw-Br pain-Papaya 50 mcg-1 mg- 10 mg-10 mg tablet,chewable (3 sources) Start: 01-16-2023 End: 07-09-2024 Ezgfwhp-Jwwrbgjo-S apain-Papaya 50 mcg-1 mg- 10 mg-10 mg tablet,chewable Discontinued {tbl} PO January 16, 2023 12:00am July 09, 2024 12:52pm mecobalamin 1 mg chewable tablet (5 sources) Start: 01-16-2023 End: 07-09-2024 take 1 tablet by mouth once daily Mecobalamin (Vitamin B12) 1,000 mcg tablet,chewable Discontinued 1000 ug PO DAILY January 16, 2023 12:00am July 09, 2024 12:52pm Multivitamin (Daily Multi-Vitamin) tablet (5 sources) Start: 01-16-2023 End: 07-09-2024 Multivitamin (Daily Multi-Vitamin) tablet Discontinued 1 {tbl} PO DAILY January 16, 2023 12:00am July 09, 2024 12:52pm Start: 01-16-2023 take 1 tablet by aba th once daily Multivitamin (Daily Multi-Vitamin) tablet Active 1 TABLET PO DAILY January 16, 2023 12:00am olopatadine 2 mg/ml ophthalmic solution (5 sources) Histamine-1 Receptor Inhibitor Start: 01-16-2023 End: 07-09-2024 Olopatadine 0.2 % drops Discontinued 1 NMA OPHTHALMIC DAILY January 16, 2023 12:00am July 09, 2024 12:52pm vit/iron fum/folic ac (-FOLIC ACID ORAL) (4 sources) vit/iro n fum/folic ac (-FOLIC ACID ORAL) Take by mouth once daily. 0 Active Comment on above: Take by mouth once d aily. Problems Active Problems Problem Classification Problem Date Documented Da te Episodic/Chronic Asthma (2 sources) Asthma; Translations: [Unspecified asthma, uncomplicated] 01-16-2023 Chronic Immunizations and screening for infectious disease (1 source) Encounter for immunization; Translations: [Encounter for immunization] Onset: Episodic Malaise and fatigue (1 source) Fatigue; Translations: [Other fatigue] Episodic Other complications of ; puerperium affecting management of mother (2 sources) delivery - delivered; Translations: [Encounter for delivery without indication] Episodic Other complications of ; puerperium affecting management of mother (5 sources) Deliveries by ; Translations: [Encounter for delivery without indication] 04-03-2021 Episodic Other complications of (18 sources) Maternal obesity complicating , childbirth and the puerperium, antepartum; Translations: [Obesity complicating , unspecified trimester] 12-06-2024 Chronic Comment on above: BMI 33.7, HgBA1C ord ered w/NOB labs Other complications of (1 source) Obesity complicating , unspecified trimester; Translations: [Obesity complicating , unspecified trimester] Onset: 5 Chronic Other complications of (18 sources) Multigravida of advanced maternal age; Translations: [Supervision of elderly multigravida, unspecified trimester] 12-06-2024 Episodic Comment on above: discussed delivery b y 40 weeks, growth US at 36 Other complications of (18 sources) High risk ; Translations: [Supervision of high risk , unspecified, unspecified trimester] 12-06-2024 Episodic Comment on above: [id number], RENAE 5, boy John PC: Marsha, : Jason Other complications of (18 sources) RhD negative; Translations: [Other specified related conditions, unspecified trimester] 12-06-2024 Episodic Comment on above: O-, Per Sharmaine baby is Rh - no need for Rhogam Other complications of (1 source) Supervision of high risk , unspecified, unspecified trimester; Translations: [Supervision of high risk , unspecified, unspecified trimester] Onset: 5 Episodic Other gastrointestinal disorders (17 sources) Irritable bowel syndrome; Translations: [Irritable bowel syndrome without diarrhea] 01-16-2023 Chronic Other gastrointestinal disorders (1 source) Irritable bowel syndrome without diarrhea; Translations: [Irritable bowel syndrome, unspecified] Onset: 5 Chronic Other gastrointestinal disorders (5 sources) Gastrointestinal tract problem; Translations: [Other specified symptoms and signs involving the digestive system and abdomen] 01-16-2023 Episodic Other nutritional; endocrine; and metabolic disorders (7 sources) Body mass index 30+ - obesity; Translations: [Body mass index (BMI) 34.0-34.9, adult] 07-04-2021 Chronic Other and delivery including normal (20 sources) ; Translations: [Encounter for supervision of normal , unspecified, unspecified trimester] Onset: 5 04-08-2021 Episodic Comment on above: NIPT low risk, decli polo carrier and ntd. Other upper respiratory disease (20 sources) Seasonal allergy; Translations: [Other seasonal allergic rhinitis] Onset: 1 05-16-2021 Chronic Other upper respiratory disease (1 source) Other seasonal allergic rhinitis; Translations: [Other seasonal allergic rhinitis] Onset: 5 Chronic Other upper respiratory infections (1 source) Pharyngitis; Translations: [Acute pharyngitis, unspecified] Episodic Unclassified (4 sources) Normal breast feeding; Translations: [Normal breast feeding] 07-04-2021 Viral infection (7 sources) Disease caused by 2019-nCoV; Translations: [COVID-19] 07-04-2021 Episodic Past or Other Problems Problem Classification Problem Date Documented Da te Episodic/Chronic Cardiac dysrhythmias (5 sources) Palpitations; Translations: [Palpitations] Onset: 11-14-2021 Episodic Other complications of (1 source) Supervision of elderly multigravida, unspecified trimester; Translations: [Supervision of elderly multigravida, unspecified trimester] Onset: 09-23-2024 Episodic Other complications of (1 source) Other specified related conditions, unspecified trimester; Translations: [Other specified related conditions, unspecified trimester] Onset: 09-23-2024 Episodic Other screening for suspected conditions (not mental disorders or infectious disease) (8 sources) Patient encounter status; Translations: [Encounter for screening for diabetes mellitus] Onset: 05-16-2021 Episodic Previous (1 source) Maternal care for unspecified type scar from previous delivery; Translations: [Maternal care for unspecified type scar from previous delivery] Onset: 09-23-2024 Episodic Residual codes; unclassified (1 source) Unspecified blood type, Rh negative; Translations: [Unspecified blood type, Rh negative] Onset: 09-23-2024 Episodic Residual codes; unclassified (1 source) 18 weeks gestation of ; Translations: [18 weeks gestation of ] Onset: 09-23-2024 Episodic Residual codes; unclassified (1 source) 8 weeks gestation of ; Translations: [8 weeks gestation of ] Onset: 07-30-2024 Episodic Screening and history of mental health and substance abuse codes (5 sources) H/O: anxiety state; Translations: [Personal history of other mental and behavioral disorders] Onset: 03-29-2015 Episodic Results Test Name Value Interpretation Reference Range Facility [facility] Office Visit Reporton 01-03-2025 [facility] Office Visit Report [facility] [address], [address] [place] [address] OFFICE VISIT Date of Service: 01/03/25 MR#: [id number] Acct: [id number] Name: REA DAHL Rep #: [id number] : 1990 Provider: ANTHONY Bravo ams Age/Sex: 34/F Location: [facility] [place] Status: Signed Intake Vital Signs 08/16/24 11:22 12/20/24 10:25 01/03/25 09:54 Height 5 ft 9.25 in 5 ft 9.25 in 5 ft 9.25 in Weight: 260 lb BMI 38.1 BP 128/78 H Intake Visit Reasons: 32 wk ob Chief Complaint: 32wk OB Audio Visual Aids Director Required: No Is patient in pain?: No Allergies spironolactone Allergy (Mild, Verified 01/03/25 09:54) Dizzyness Food Allergies: Uncoded Allergy (Verified 01/03/25 09:54) Abd cramps/diarrhea Seasonal Allergies: Uncoded (environmental) Allergy (Verified 01/03/25 09:54) NEEDS FOLLOW-UP Medications ???Medication ???Instructions ???Recorded ???Confirmed ???Type Prenatabs FA 1 tab PO/SL DAILY 01/03/25 History cholecalciferol (vitamin D3) 25 25 mcg PO DAILY 01/16/23 01/03/25 History mcg (1,000 unit) capsule vitamin C 30 mg-zinc citrate 1.1 tab PO 01/16/23 01/03/25 History mg-elderberry 25 mg chewable tablet (Sambucus Elderberry) Last Menstrual Period: 05/20/24 : No Have you fallen in the past year?: No PFSH PFSH Medical History Hx of ovarian cyst Irritable bowel syndrome Gastrointestinal problem Seasonal allergies Surgical History Hx of section History of surgery Family History Mother Anxiety Asthma Arthritis Grandfather Asthma Arthritis CVA (cerebral vascular accident) Grandfather Diabetes Myocardial infarction Father Melanoma Parkinsons Lewy body dementia Grandmother Alzheimers disease Aunt Alzheimers disease Other Mental disorder Social History adopted: No household members: spouse, family and children number of children: 1 current occupational status: unemployed current occupation: [employer] current occupational exposures/hazards: No pets and animals: Yes ( taking care litter box ) pets and animals: cat(s) and dog(s) history of recent travel: Yes ([place] in July 2024) out of state: Yes out of country: No sexually active: Yes Smoking Status: Never smoker alcohol intake: current alcohol intake frequency: holidays/special occasions only details: Not while substance use type: does not use well-balanced diet: daily or most days caffeine: Yes Type: coffee eating out: 1-3 times/week what type of physical activity do you participate in: walking and bicycling frequency: 3-4 times per week duration: 15-30 minutes/day leticia/druze: Islam seatbelt use: always do you feel safe at home: Yes 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 Date Name GA/Weeks Outcome Route Bth Weight Infant Gen Labor Lgth Anesthesia Del Locatn Provider FOB 04/02/21 Marsha 41 live - full term 8lbs Female [address] [facility] [address] Shiva Gomez Delivery Date: 04/02/21 Last Updated by: Kelin Vance RN Failure to progress/ intolerance HPI 32 wk ob Details: REA DAHL is a 34 year old who presents for routine OB visit. OB Visit RENAE Calculator Estimated Delivery Date Method Current WG Current Estimate 02/24/25 LMP (Certain) 32w 4d Other Estimates 02/23/25 Ultrasound #1 32w 5d Expected Delivery Route/Plan patient counseled regarding risks/benefits of trial of labor versus repeat . ACOG/uptodate education given to patient. 43 % likelihood of success per calculator TOLAC consent form signed: [] Specific Issue/Plans Covid status: [] Flu vaccine: [] Tdap vaccine: [] Rhogam: baby Rh neg, deferred LARC form signed: yes Problem list reviewed and updated with the most current plan of care details and appropriate orders placed. Relevant counseling for the gestational age provided. Continue routine care and follow up unless otherwise noted in visit notes/problem list details Initial Weight: Not Recorded Date -???-???-???-???-??? -???-???-???-???-??? -???-???- EGA Weight BP Urine Prot -???-???-???-???-??? -???-???-???-???-??? -???-???- Glucose FHR FuHt Pres Dilation -???-???-???-???-??? -???-???-???-???-??? -???-???- Effaced St Visit Note 07/19/24 -???-???-???-???-??? -???-???-???-???-??? -???-??? (more content not included)... Normal [facility] - Chemistry and C hemistry - challengeOrdered By: Sally Cerna on 12-20-2024 Glucose Ql (U) Negative [facility] - UrinalysisOrder ed By: Sally Cerna on 12-20-2024 Protein Ql (U) Negative [facility] Office Visit Reporton 12-20-2024 Car [facility] Office Visit Report [facility] [address] [place] [address], [address] [place] [address] OFFICE VISIT Date of Service: 12/20/24 MR#: [id number] Acct: [id number] Name: REA DAHL Rep #: [id number] : 1990 Provider: Dr. Sally walton MD Age/Sex: 34/F Location: [facility] [place] Status: Signed Intake Vital Signs 07/19/24 10:31 12/06/24 09:45 12/20/24 10:18 12/20/24 10:25 Height 5 ft 9.25 in 5 ft 9.25 in 5 ft 9 in 5 ft 9.25 in Weight: 258 lb 6 oz BMI 38.1 BP 110/51 L Intake Visit Reasons: 30 wk ob Audio Visual Aids Director Required: No Is patient in pain?: No Allergies spironolactone Allergy (Mild, Verified 12/20/24 10:18) Dizzyness Food Allergies: Uncoded Allergy (Verified 12/20/24 10:18) Abd cramps/diarrhea Seasonal Allergies: Uncoded (environmental) Allergy (Verified 12/20/24 10:18) NEEDS FOLLOW-UP Medications ???Medication ???Instructions ???Recorded ???Confirmed ???Type Prenatabs FA 1 tab PO/SL DAILY 12/20/24 History cholecalciferol (vitamin D3) 25 25 mcg PO DAILY 01/16/23 12/20/24 History mcg (1,000 unit) capsule vitamin C 30 mg-zinc citrate 1.1 tab PO 01/16/23 12/20/24 History mg-elderberry 25 mg chewable tablet (Sambucus Elderberry) Last Menstrual Period: 05/20/24 Zika: Zika virus screening: Negative : No PFSH PFSH Medical History Hx of ovarian cyst Irritable bowel syndrome Gastrointestinal problem Seasonal allergies Surgical History Hx of section History of surgery Family History Mother Anxiety Asthma Arthritis Grandfather Asthma Arthritis CVA (cerebral vascular accident) Grandfather Diabetes Myocardial infarction Father Melanoma Parkinsons Lewy body dementia Grandmother Alzheimers disease Aunt Alzheimers disease Other Mental disorder Social History adopted: No household members: spouse, family and children number of children: 1 current occupational status: unemployed current occupation: [employer] current occupational exposures/hazards: No pets and animals: Yes ( taking care litter box ) pets and animals: cat(s) and dog(s) history of recent travel: Yes ([place] in July 2024) out of state: Yes out of country: No sexually active: Yes Smoking Status: Never smoker alcohol intake: current alcohol intake frequency: holidays/special occasions only details: Not while substance use type: does not use well-balanced diet: daily or most days caffeine: Yes Type: coffee eating out: 1-3 times/week what type of physical activity do you participate in: walking and bicycling frequency: 3-4 times per week duration: 15-30 minutes/day leticia/druze: Islam seatbelt use: always do you feel safe at home: Yes 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 Date Name GA/Weeks Outcome Route Bth Weight Infant Gen Labor Lgth Anesthesia Del Locatn Provider FOB 04/02/21 Marsha 41 live - full term 8lbs Female [address] Shiva Gomez Delivery Date: 04/02/21 Last Updated by: Kelin Vance RN Failure to progress/ intolerance HPI 30 wk ob Details: REA DAHL is a 34 year old who presents for routine OB visit. OB Visit RENAE Calculator Estimated Delivery Date Method Current WG Current Estimate 02/24/25 LMP (Certain) 30w 4d Other Estimates 02/23/25 Ultrasound #1 30w 5d Expected Delivery Route/Plan patient counseled regarding risks/benefits of trial of labor versus repeat . ACOG/uptodate education given to patient. 43 % likelihood of success per calculator TOLAC consent form signed: [] Specific Issue/Plans Covid status: [] Flu vaccine: [] Tdap vaccine: [] Rhogam: baby Rh neg, deferred LARC form signed: yes Problem list reviewed and updated with the most current plan of care details and appropriate orders placed. Relevant counseling for the gestational age provided. Continue routine care and follow up unless otherwise noted in visit notes/problem list details Initial Weight: Not Recorded Date -???-???-???-???-??? -???-???-???-???-??? -???-???- EGA Weight BP Urine Prot -???-???-???-???-??? -???-???-???-???-??? -???-???- Glucose FHR FuHt Pres Dilation -???-???-???-???-??? -???-???-???-???-??? -???-???- Effaced St Visit Note 07/19/24 -???-???-???-???-??? -??? (more content not included)... Normal [facility] Absolute lymphocyte countOrd ered By: Jeaneth Lezama on 12-06-2024 Lymphocytes Auto (Unsp spec) [#/Vol] 1.17 10*3/uL 0.83-4.51 [facility] Absolute neutrophil countOrd ered By: Jeaneth Lezama on 12-06-2024 Neutrophils (Bld) [#/Vol] 8.3 10*3/uL High 2.0-7.7 [facility] Automated lymphocyte count a s percentage of total leukocytesOrdered By: Jeaneth Lezama on 12-06-2024 Lymphocytes/100 WBC Auto (Unsp spec) 11.5 % Low 19-41 [facility] Basophil percentageOrdered B y: Jeaneth Lezama on 12-06-2024 Basophils/100 WBC (Bld) 0.2 % 0-1 [facility] CBC W/Diff, Automatedon Absolute Lymph 1.17 X10 3/uL Normal 0.83-4.51 [facility] Comment on above: Performed By: #### L 501.0250, L3890.6006, L509.8002, BTS, L100.0100 ####[facility] [id number] [place], [address] Absolute Neut 8.3 X10 3/uL High 2.0-7.7 [facility] Comment on above: Performed By: #### L 501.0250, L3890.6006, L509.8002, BTS, L100.0100 ####[facility] [address] [place], [address] Basophils/100 WBC (Bld) 0.2 % Normal 0-1 [facility] Comment on above: Performed By: #### L 501.0250, L3890.6006, L509.8002, BTS, L100.0100 ####[facility] [id number] [place], [address] Eosinophils/100 WBC (Bld) 1.4 % Normal 0-5 [facility] Comment on above: Performed By: #### L 501.0250, L3890.6006, L509.8002, BTS, L100.0100 ####[facility] [address] [place], [address] Erythrocyte distribution width (RBC) [Ratio] 14.1 % Normal 11.6-14.6 [facility] Comment on above: Performed By: #### L 501.0250, L3890.6006, L509.8002, BTS, L100.0100 ####[facility] [address] [place], [address] Hematocrit (Bld) [Volume fraction] 36.1 % Low 37-47 [facility] Comment on above: Performed By: #### L 501.0250, L3890.6006, L509.8002, BTS, L100.0100 ####[facility] [address] [place], [address] Hemoglobin (Bld) [Mass/Vol] 11.9 g/dL Low 12.0-15.0 [facility] Comment on above: Performed By: #### L 501.0250, L3890.6006, L509.8002, BTS, L100.0100 ####[facility] [address] [place], [address] IG% 0.700 Normal 0.0-0.9 [facility] Comment on above: Result Comment: IG% - Immature Granulocytes (promyelocytes, myelocytes and metamyelocytes) > 1% indicates that a LEFT SHIFT is Present. Performed By: #### L 501.0250, L3890.6006, L509.8002, BTS, L100.0100 ####[facility] [address] [place], [address] Lymphocytes/100 WBC (Bld) 11.5 % Low 19-41 [facility] Comment on above: Performed By: #### L 501.0250, L3890.6006, L509.8002, BTS, L100.0100 ####[facility] [address] [place], [address] MCH (RBC) [Entitic mass] 28.6 pg Normal 27.0-32.0 [facility] Comment on above: Performed By: #### L 501.0250, L3890.6006, L509.8002, BTS, L100.0100 ####[facility] [address] [place], [address] MCHC (RBC) [Mass/Vol] 33.0 g/dL Normal 32-36 [facility] Comment on above: Performed By: #### L 501.0250, L3890.6006, L509.8002, BTS, L100.0100 ####[facility] [address] [place], [address] MCV (RBC) [Entitic vol] 86.8 fL Normal 81-99 [facility] Comment on above: Performed By: #### L 501.0250, L3890.6006, L509.8002, BTS, L100.0100 ####[facility] [address] [place], [address] Monocytes/100 WBC (Bld) 5.1 % Normal 0-10 [facility] Comment on above: Performed By: #### L 501.0250, L3890.6006, L509.8002, BTS, L100.0100 ####[facility] [address] [place], [address] Neutrophils/100 WBC (Bld) 81.1 % High 47-70 [facility] Comment on above: Performed By: #### L 501.0250, L3890.6006, L509.8002, BTS, L100.0100 ####[facility] [address] [place], [address] Nucleated RBC (Bld) [#/Vol] 0 10*3/uL Normal 0-5 [facility] Comment on above: Performed By: #### L 501.0250, L3890.6006, L509.8002, BTS, L100.0100 ####[facility] [address] [place], [address] Platelet mean volume (Bld) [Entitic vol] 10.3 fL Normal 6.2-12.0 [facility] Comment on above: Performed By: #### L 501.0250, L3890.6006, L509.8002, BTS, L100.0100 ####[facility] [address] [place], [address] Platelets (Bld) [#/Vol] 208 10*3/uL Normal 150-450 [facility] Comment on above: Performed By: #### L 501.0250, L3890.6006, L509.8002, BTS, L100.0100 ####[facility] [address] [place], [address] RBC (Bld) [#/Vol] 4.16 10*6/uL Low 4.2-5.4 [facility] Comment on above: Performed By: #### L 501.0250, L3890.6006, L509.8002, BTS, L100.0100 ####[facility] [address] [place], [address] RDW SD 44.6 fl High 35.1-43.9 [facility] Comment on above: Performed By: #### L 501.0250, L3890.6006, L509.8002, BTS, L100.0100 ####[facility] [address] [place], [address] WBC (Bld) [#/Vol] 10.2 10*3/uL Normal 4.4-11.0 [facility] Comment on above: Performed By: #### L 501.0250, L3890.6006, L509.8002, BTS, L100.0100 ####[facility] [address] [place], [address] Eosinophil percentageOrdered By: Jeaneth Lezama on 12-06-2024 Eosinophils/100 WBC (Bld) 1.4 % 0-5 [facility] Erythrocyte distribution wid th ratioOrdered By: Jeaneth Lezama on 12-06-2024 Erythrocyte distribution width (RBC) [Ratio] 14.1 % 11.6-14.6 [facility] Erythrocyte distribution wid th standard deviationOrdered By: Jeaneth Lezama on 12-06-2024 Erythrocyte distribution width (RBC) [Ratio] 44.6 fl High 35.1-43.9 [facility] Glucose Challenge Gest 1H 50 cb 12-06-2024 GLU GEST 50g 1H 130 mg/dL Normal 70-140 [facility] Comment on above: Performed By: #### L 501.0250, L3890.6006, L509.8002, BTS, L100.0100 ####[facility] [address] [place], [place], [id number] Glucose measurement at 2 ezequiel rs post-dose gestational glucose tolerance testOrdered By: Jeaneth Lezama on 12-06-2024 Glucose [Mass/Vol] 130 mg/dL 70-140 [facility] HIVon 12-06-2024 HIV Non-Reactive Normal Nonreactive [facility] Comment on above: Result Comment: Non- Reactive Reactive Repeatedly reactive samples must be confirmed according to CDC recommended confirmatory algorithms. The subresults for either HIVAG or AHIV can be used as an aid in the selection of the confirmation algorithm for reactive samples. Send out specimens with Reactive results to [facility] for confirmation. Order the HIV antibody detection and differentiation: lc#[id number] Performed By: #### L 501.0250, L3890.6006, L509.8002, BTS, L100.0100 ####[facility] [address] [place], [place], [id number] Hematocrit Auto (Bld) [Volum e fraction]Ordered By: Jeaneth Lezama on 12-06-2024 Hematocrit (Bld) [Volume fraction] 36.1 % Low 37-47 [facility] Hemoglobin measurementOrdere d By: Jeaneth Lezama on 12-06-2024 Hemoglobin (Bld) [Mass/Vol] 11.9 g/dL Low 12.0-15.0 [facility] Immature granulocytes/100 WB C Auto (Bld)Ordered By: Jeaneth Lezama on 12-06-2024 Immature granulocytes/100 WBC (Bld) 0.700 % 0.0-0.9 [facility] Comment on above: IG% - Immature Granu locytes (promyelocytes, myelocytes and metamyelocytes) > 1% indicates that a LEFT SHIFT is Present. Laboratory - Chemistry and C hemistry - challengeOrdered By: Radha Muhammad on 12-06-2024 Glucose Ql (U) Negative [facility] Laboratory - UrinalysisOrder ed By: Radha Muhammad on 12-06-2024 Protein Ql (U) Negative [facility] MCV (mean corpuscular volume ) determinationOrdered By: Jeaneth Lezama on 12-06-2024 MCV (RBC) [Entitic vol] 86.8 fL 81-99 [facility] Mean corpuscular hemoglobin (MCH) determinationOrdered By: Jeaneth Lezama on 12-06-2024 MCH (RBC) [Entitic mass] 28.6 pg 27.0-32.0 [facility] Mean corpuscular hemoglobin concentration (MCHC) determinationOrdered By: Jeaneth Lezama on 12-06-2024 MCHC (RBC) [Mass/Vol] 33.0 g/dL 32-36 [facility] Mean platelet volume determi nationOrdered By: Jeaneth Lezama on 12-06-2024 Platelet mean volume (Bld) [Entitic vol] 10.3 fL 6.2-12.0 [facility] Monocyte percentageOrdered B y: Jeaneth Lezama on 12-06-2024 Monocytes/100 WBC (Bld) 5.1 % 0-10 [facility] Neutrophil percentageOrdered By: Jeaneth Lezama on 12-06-2024 Neutrophils/100 WBC (Bld) 81.1 % High 47-70 [facility] No Panel InformationOrdered By: Jeaneth Lezama on 12-06-2024 HIV (1&2) Antibody Non-Reactive Nonreactive [facility] Comment on above: Non-ReactiveReactive Repeatedly reactive samples must be confirmed according to CDC recommended confirmatory algorithms. The subresults for either HIVAG or AHIV can be used as an aid in the selection of the confirmation algorithm for reactive samples.Send out specimens with Reactive results to [facility] for confirmation.Order the HIV antibody detection and differentiation: #[id number] Nucleated red blood cell per centageOrdered By: Jeaneth Lezama on 12-06-2024 Nucleated RBC/100 WBC (Bld) [Ratio] 0 % 0-5 [facility] Office Visit Reporton 12-06-2024 [facility] Office Visit Report [facility] [address], [address] [place] [address] OFFICE VISIT Date of Service: 12/06/24 MR#: [id number] Acct: [id number] Name: REA DAHL Rep #: [id number] : 1990 Provider: MAURO burkett Age/Sex: 34/F Location: [facility] [place] Status: Signed Intake Vital Signs 07/19/24 10:31 12/06/24 09:45 Height 5 ft 9.25 in 5 ft 9.25 in Weight: 256 lb BMI 37.5 BP 123/80 H Intake Visit Reasons: 28 wk ob/glucose Audio Visual Aids Director Required: No Is patient in pain?: No Allergies spironolactone Allergy (Mild, Verified 12/06/24 10:02) Dizzyness Food Allergies: Uncoded Allergy (Verified 12/06/24 10:02) Abd cramps/diarrhea Seasonal Allergies: Uncoded (environmental) Allergy (Verified 12/06/24 10:02) NEEDS FOLLOW-UP Medications ???Medication ???Instructions ???Recorded ???Confirmed ???Type Prenatabs FA 1 tab PO/SL DAILY 12/06/24 History cholecalciferol (vitamin D3) 25 25 mcg PO DAILY 01/16/23 12/06/24 History mcg (1,000 unit) capsule vitamin C 30 mg-zinc citrate 1.1 tab PO 01/16/23 12/06/24 History mg-elderberry 25 mg chewable tablet (Sambucus Elderberry) Last Menstrual Period: 05/20/24 Zika: Zika virus screening: Negative : Yes PFSH PFSH Medical History Hx of ovarian cyst Irritable bowel syndrome Gastrointestinal problem Seasonal allergies Surgical History Hx of section History of surgery Family History Mother Anxiety Asthma Arthritis Grandfather Asthma Arthritis CVA (cerebral vascular accident) Grandfather Diabetes Myocardial infarction Father Melanoma Parkinsons Lewy body dementia Grandmother Alzheimers disease Aunt Alzheimers disease Other Mental disorder Social History adopted: No household members: spouse, family and children number of children: 1 current occupational status: unemployed current occupation: [employer] current occupational exposures/hazards: No pets and animals: Yes ( taking care litter box ) pets and animals: cat(s) and dog(s) history of recent travel: Yes ([place] in July 2024) out of state: Yes out of country: No sexually active: Yes Smoking Status: Never smoker alcohol intake: current alcohol intake frequency: holidays/special occasions only details: Not while substance use type: does not use well-balanced diet: daily or most days caffeine: Yes Type: coffee eating out: 1-3 times/week what type of physical activity do you participate in: walking and bicycling frequency: 3-4 times per week duration: 15-30 minutes/day leticia/druze: Islam seatbelt use: always do you feel safe at home: Yes 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 Date Name GA/Weeks Outcome Route Bth Weight Infant Gen Labor Lgth Anesthesia Del Locatn Provider FOB 04/02/21 Marsha 41 live - full term 8lbs Female [address] Shiva Vasquez Jason Delivery Date: 04/02/21 Last Updated by: Kelin Vance RN Failure to progress/ intolerance HPI 28 wk ob/glucose Details: REA DAHL is a 34 year old who presents for routine OB visit. OB Visit RENAE Calculator Estimated Delivery Date Method Current WG Current Estimate 02/24/25 LMP (Certain) 28w 4d Other Estimates 02/23/25 Ultrasound #1 28w 5d Expected Delivery Route/Plan patient counseled regarding risks/benefits of trial of labor versus repeat . ACOG/uptodate education given to patient. 43 % likelihood of success per calculator TOLAC consent form signed: [] Specific Issue/Plans Covid status: [] Flu vaccine: [] Tdap vaccine: [] Rhogam: baby Rh neg, deferred LARC form signed: yes Problem list reviewed and updated with the most current plan of care details and appropriate orders placed. Relevant counseling for the gestational age provided. Continue routine care and follow up unless otherwise noted in visit notes/problem list details Initial Weight: Not Recorded Date -???-???-???-???-??? -???-???-???-???-??? -???-???- EGA Weight BP Urine Prot -???-???-???-???-??? -???-???-???-???-??? -???-???- Glucose FHR FuHt Pres Dilation -???-???-???-???-??? -???-???-???-???-??? -???-???- Effaced St Visit Note 07/19/24 -???-???-???-???-??? -???-???-???-???-??? -???-???- 8w 4d 240 lb (more content not included)... Normal [facility] Platelet countOrdered By: Nico Lezama on 12-06-2024 Platelets (Bld) [#/Vol] 208 10*3/uL 150-450 [facility] RBC Auto (Bld) [#/Vol]Ordere d By: Jeaneth Lezama on 12-06-2024 RBC (Bld) [#/Vol] 4.16 10*6/uL Low 4.2-5.4 [facility] Syphilis Antibodieson 2024 Syphilis Abs Non-Reactive Normal Nonreactive [facility] Comment on above: Performed By: #### L 501.0250, L3890.6006, L509.8002, BTS, L100.0100 ####[facility] [address] [place], [place], [id number] Type AND Screenon 12-06-2024 ABO and Rh group Nom (Bld) Blood group O Rh(D) negative Normal [facility] Comment on above: Order Comment: HVAG Performed By: #### L 501.0250, L3890.6006, L509.8002, BTS, L100.0100 ####[facility] [address] [place], [address] White blood cell (WBC) count Ordered By: Jeaneth Lezama on 12-06-2024 WBC (Bld) [#/Vol] 10.2 10*3/uL 4.4-11.0 [facility] Laboratory - Chemistry and C hemistry - challengeOrdered By: Jeaneth Lezama on 11-08-2024 Glucose Ql (U) Negative [facility] - UrinalysisOrder ed By: Jeaneth Lezama on 11-08-2024 Protein Ql (U) Negative [facility] Office Visit Reporton 11-08-2024 [facility] Office Visit Report [facility] [address], [address] [place] [address] OFFICE VISIT Date of Service: 11/08/24 MR#: [id number] Acct: [id number] Name: REA DAHL Rep #: [id number] : 1990 Provider: Dr. Jeaneth Loco DO Age/Sex: 34/F Location: [facility] [place] Status: Signed Intake Vital Signs 07/19/24 10:31 10/15/24 11:04 11/08/24 10:10 11/08/24 10:13 Height 5 ft 9.25 in 5 ft 9.25 in 5 ft 9.25 in 5 ft 9.25 in Weight: 253 lb 4 oz BMI 37.1 BP 123/75 H Intake Visit Reasons: 24 wk ob Audio Visual Aids Director Required: No Is patient in pain?: No Allergies spironolactone Allergy (Mild, Verified 11/08/24 10:10) Dizzyness Food Allergies: Uncoded Allergy (Verified 11/08/24 10:10) Abd cramps/diarrhea Seasonal Allergies: Uncoded (environmental) Allergy (Verified 11/08/24 10:10) NEEDS FOLLOW-UP Medications ???Medication ???Instructions ???Recorded ???Confirmed ???Type Prenatabs FA 1 tab PO/SL DAILY 11/08/24 History cholecalciferol (vitamin D3) 25 25 mcg PO DAILY 01/16/23 11/08/24 History mcg (1,000 unit) capsule vitamin C 30 mg-zinc citrate 1.1 tab PO 01/16/23 11/08/24 History mg-elderberry 25 mg chewable tablet (Samkamron Elderberry) Last Menstrual Period: 05/20/24 Zika: Zika virus screening: Negative : No PFSH PFSH Medical History Hx of ovarian cyst Irritable bowel syndrome Gastrointestinal problem Seasonal allergies Surgical History Hx of section History of surgery Family History Mother Anxiety Asthma Arthritis Grandfather Asthma Arthritis CVA (cerebral vascular accident) Grandfather Diabetes Myocardial infarction Father Melanoma Parkinsons Lewy body dementia Grandmother Alzheimers disease Aunt Alzheimers disease Other Mental disorder Social History adopted: No household members: spouse, family and children number of children: 1 current occupational status: unemployed current occupation: [employer] current occupational exposures/hazards: No pets and animals: Yes ( taking care litter box ) pets and animals: cat(s) and dog(s) history of recent travel: Yes ([place] in July 2024) out of state: Yes out of country: No sexually active: Yes Smoking Status: Never smoker alcohol intake: current alcohol intake frequency: holidays/special occasions only details: Not while substance use type: does not use well-balanced diet: daily or most days caffeine: Yes Type: coffee eating out: 1-3 times/week what type of physical activity do you participate in: walking and bicycling frequency: 3-4 times per week duration: 15-30 minutes/day leticia/druze: Islam seatbelt use: always do you feel safe at home: Yes 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 Date Name GA/Weeks Outcome Route Bth Weight Infant Gen Labor Lgth Anesthesia Del Locatn Provider FOB 04/02/21 Marsha 41 live - full term 8lbs Female [address] [facility] [address] Shiva Gomez Delivery Date: 04/02/21 Last Updated by: Kelin Vance RN Failure to progress/ intolerance HPI 24 wk ob Details: REA DAHL is a 34 year old who presents for routine OB visit. OB Visit RENAE Calculator Estimated Delivery Date Method Current WG Current Estimate 02/24/25 LMP (Certain) 24w 4d Other Estimates 02/23/25 Ultrasound #1 24w 5d Expected Delivery Route/Plan patient counseled regarding risks/benefits of trial of labor versus repeat . ACOG/uptodate education given to patient. 43 % likelihood of success per calculator TOLAC consent form signed: [] Specific Issue/Plans Covid status: [] Flu vaccine: [] Tdap vaccine: [] Rhogam: [] LARC form signed: [] Problem list reviewed and updated with the most current plan of care details and appropriate orders placed. Relevant counseling for the gestational age provided. Continue routine care and follow up unless otherwise noted in visit notes/problem list details Initial Weight: Not Recorded Date -???-???-???-???-??? -???-???-???-???-??? -???-???- EGA Weight BP Urine Prot -???-???-???-???-??? -???-???-???-???-??? -???-???- Glucose FHR FuHt Pres Dilation -???-???-???-???-??? -???-???-???-???-??? -???-???- Effaced St Visit Note 07/19/24 -???-???-???-???-??? -???-???-?? (more content not included)... Normal [facility] - Chemistry and C hemistry - challengeOrdered By: Morenita Dickerson on 10-15-2024 Glucose Ql (U) Negative [facility] - UrinalysisOrder ed By: Morenita Dickerson on 10-15-2024 Protein Ql (U) Negative [facility] Office Visit Reporton 10-15-2024 [facility] Office Visit Report [facility] [address], [address] [place] [address] OFFICE VISIT Date of Service: 10/15/24 MR#: [id number] Acct: [id number] Name: REA DAHL Rep #: [id number] : 1990 Provider: ANTHONY limon Age/Sex: 34/F [place] [facility] Status: Signed Intake Vital Signs 07/19/24 10:31 09/23/24 10:18 10/15/24 11:02 10/15/24 11:04 Height 5 ft 9.25 in 5 ft 9.25 in 5 ft 9.25 in 5 ft 9.25 in Weight: 246 lb 6 oz BMI 36.1 BP 118/76 Intake Visit Reasons: 20 wk ob Audio Visual Aids Director Required: No Is patient in pain?: No Allergies spironolactone Allergy (Mild, Verified 10/15/24 11:02) Dizzyness Food Allergies: Uncoded Allergy (Verified 10/15/24 11:02) Abd cramps/diarrhea Seasonal Allergies: Uncoded (environmental) Allergy (Verified 10/15/24 11:02) NEEDS FOLLOW-UP Medications ???Medication ???Instructions ???Recorded ???Confirmed ???Type Prenatabs FA 1 tab PO/SL DAILY 10/15/24 History cholecalciferol (vitamin D3) 25 25 mcg PO DAILY 01/16/23 10/15/24 History mcg (1,000 unit) capsule vitamin C 30 mg-zinc citrate 1.1 tab PO 01/16/23 10/15/24 History mg-elderberry 25 mg chewable tablet (Sambucus Elderberry) Last Menstrual Period: 05/20/24 : No PFSH PFSH Medical History Hx of ovarian cyst Irritable bowel syndrome Gastrointestinal problem Seasonal allergies Surgical History Hx of section History of surgery Family History Mother Anxiety Asthma Arthritis Grandfather Asthma Arthritis CVA (cerebral vascular accident) Grandfather Diabetes Myocardial infarction Father Melanoma Parkinsons Lewy body dementia Grandmother Alzheimers disease Aunt Alzheimers disease Other Mental disorder Social History adopted: No household members: spouse, family and children number of children: 1 current occupational status: unemployed current occupation: [employer] current occupational exposures/hazards: No pets and animals: Yes ( taking care litter box ) pets and animals: cat(s) and dog(s) history of recent travel: Yes ([place] in July 2024) out of state: Yes out of country: No sexually active: Yes Smoking Status: Never smoker alcohol intake: current alcohol intake frequency: holidays/special occasions only details: Not while substance use type: does not use well-balanced diet: daily or most days caffeine: Yes Type: coffee eating out: 1-3 times/week what type of physical activity do you participate in: walking and bicycling frequency: 3-4 times per week duration: 15-30 minutes/day leticia/druze: Islam seatbelt use: always do you feel safe at home: Yes 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 Date Name GA/Weeks Outcome Route Bth Weight Gen Labor Lgth Anesthesia Del Locatn Provider FOB 04/02/21 Marsha 41 live - full term 8lbs Female [address] [facility] [address] Shiva Gomez Delivery Date: 04/02/21 Last Updated by: Kelin Vance RN Failure to progress/ intolerance HPI 20 wk ob Details: REA DAHL is a 34 year old who presents for routine OB visit. OB Visit RENAE Calculator Estimated Delivery Date Method Current WG Current Estimate 02/24/25 LMP (Certain) 21w 1d Other Estimates 02/23/25 Ultrasound #1 21w 2d Expected Delivery Route/Plan patient counseled regarding risks/benefits of trial of labor versus repeat . ACOG/uptodate education given to patient. 43 % likelihood of success per calculator TOLAC consent form signed: [] Specific Issue/Plans Covid status: [] Flu vaccine: [] Tdap vaccine: [] Rhogam: [] LARC form signed: [] Problem list reviewed and updated with the most current plan of care details and appropriate orders placed. Relevant counseling for the gestational age provided. Continue routine care and follow up unless otherwise noted in visit notes/problem list details Initial Weight: Not Recorded Date -???-???-???-???-??? -???-???-???-???-??? -???-???- EGA Weight BP Urine Prot -???-???-???-???-??? -???-???-???-???-??? -???-???- Glucose FHR FuHt Pres Dilation -???-???-???-???-??? -???-???-???-???-??? -???-???- Effaced St Visit Note 07/19/24 -???-???-???-???-??? -???-???-???-???-??? -???-???- 8w 4d 240 lb 120/81 -???-???-???-???-??? -?? (more content not included)... Normal [facility] - Chemistry and C hemistry - challengeOrdered By: Sally Cerna on 09-23-2024 Glucose Ql (U) Negative [facility] - UrinalysisOrder ed By: Sally Cerna on 09-23-2024 Protein Ql (U) Negative [facility] Office Visit Reporton 09-23-2024 [facility] Office Visit Report [facility] [address], [address] [place] [address] OFFICE VISIT Date of Service: 09/23/24 MR#: [id number] Acct: [id number] Name: REA DAHL Rep #: [id number] : 1990 Provider: Dr. Sally walton MD Age/Sex: 33/F [place] [facility] Status: Signed Intake Vital Signs 08/16/24 11:22 09/23/24 10:18 Height 5 ft 9.25 in 5 ft 9.25 in Weight: 244 lb 8 oz BMI 35.8 BP 112/76 Intake Visit Reasons: 18 wk ob Audio Visual Aids Director Required: No Is patient in pain?: No Feel stressed/tense/nervo us/anxious/difficult y sleeping: not at all Allergies spironolactone Allergy (Mild, Verified 09/23/24 10:21) Dizzyness Food Allergies: Uncoded Allergy (Verified 09/23/24 10:21) Abd cramps/diarrhea Seasonal Allergies: Uncoded (environmental) Allergy (Verified 09/23/24 10:21) NEEDS FOLLOW-UP Medications ???Medication ???Instructions ???Recorded ???Confirmed ???Type Prenatabs FA 1 tab PO/SL DAILY 09/23/24 History cholecalciferol (vitamin D3) 25 25 mcg PO DAILY 01/16/23 09/23/24 History mcg (1,000 unit) capsule vitamin C 30 mg-zinc citrate 1.1 tab PO 01/16/23 09/23/24 History mg-elderberry 25 mg chewable tablet (Sambucus Elderberry) Last Menstrual Period: 05/20/24 Zika: Zika virus screening: Negative : No Have you fallen in the past year?: No PFSH PFSH Medical History (Updated 09/23/24 @ 10:[address] Sally Cerna MD) Hx of ovarian cyst Irritable bowel syndrome Gastrointestinal problem Seasonal allergies Surgical History (Updated 09/23/24 @ 10:[address] Sally Cerna MD) Hx of section History of surgery Family History Mother Anxiety Asthma Arthritis Grandfather Asthma Arthritis CVA (cerebral vascular accident) Grandfather Diabetes Myocardial infarction Father Melanoma Parkinsons Lewy body dementia Grandmother Alzheimers disease Aunt Alzheimers disease Other Mental disorder Social History adopted: No household members: spouse, family and children number of children: 1 current occupational status: unemployed current occupation: [employer] current occupational exposures/hazards: No pets and animals: Yes ( taking care litter box ) pets and animals: cat(s) and dog(s) history of recent travel: Yes ([place] in July 2024) out of state: Yes out of country: No sexually active: Yes Smoking Status: Never smoker alcohol intake: current alcohol intake frequency: holidays/special occasions only details: Not while substance use type: does not use well-balanced diet: daily or most days caffeine: Yes Type: coffee eating out: 1-3 times/week what type of physical activity do you participate in: walking and bicycling frequency: 3-4 times per week duration: 15-30 minutes/day leticia/druze: Islam seatbelt use: always do you feel safe at home: Yes 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 Date Name GA/Weeks Outcome Route Bth Weight Gen Labor Lgth Anesthesia Del Locatn Provider FOB 04/02/21 Marsha 41 live - full term 8lbs Female [address] [facility] [address] Shiva Gomez Delivery Date: 04/02/21 Last Updated by: Kelin Vance RN Failure to progress/ intolerance HPI 18 wk ob Details: REA DAHL is a 33 year old who presents for routine OB visit. OB Visit RENAE Calculator Estimated Delivery Date Method Current WG Current Estimate 02/24/25 LMP (Certain) 18w 0d Other Estimates 02/23/25 Ultrasound #1 18w 1d Expected Delivery Route/Plan patient counseled regarding risks/benefits of trial of labor versus repeat . ACOG/uptodate education given to patient. 43 % likelihood of success per calculator TOLAC consent form signed: [] Specific Issue/Plans Covid status: [] Flu vaccine: [] Tdap vaccine: [] Rhogam: [] LARC form signed: [] Problem list reviewed and updated with the most current plan of care details and appropriate orders placed. Relevant counseling for the gestational age provided. Continue routine care and follow up unless otherwise noted in visit notes/problem list details Initial Weight: Not Recorded Date -???-???-???-???-??? -???-???-???-???-??? -???-???- EGA Weight BP Urine Prot -???-???-???-???-??? -???-???-???-???-??? -???-???- Glucose FHR FuHt Pres Dilation -???-???-???-???-??? -???-???-???-???-??? -???-???- Effaced (more content not included)... Normal [facility] - [facility] 08-17-2024 HIV Non-Reactive Normal Nonreactive [facility] Comment on above: Order Comment: Reaso n for Exam: Performed By: #### L 509.4005, L100.0100, L3890.6005, L900.0098, BTS, L509.8000, L501.9985, L3890.6100, L3890.6300 ####[facility] [id number] [place], [address] Absolute lymphocyte countOrd ered By: Jeaneth Lezama on 08-16-2024 Lymphocytes Auto (Unsp spec) [#/Vol] 1.28 10*3/uL 0.83-4.51 [facility] Absolute neutrophil countOrd ered By: Jeaneth Lezama on 08-16-2024 Neutrophils (Bld) [#/Vol] 6.5 10*3/uL 2.0-7.7 [facility] Automated lymphocyte count a s percentage of total leukocytesOrdered By: Jeaneth Lezama on 08-16-2024 Lymphocytes/100 WBC Auto (Unsp spec) 15.2 % Low 19-41 [facility] Basophil percentageOrdered B y: Jeaneth Lezama on 08-16-2024 Basophils/100 WBC (Bld) 0.5 % 0-1 [facility] CBC W/Diff, Automatedon 08-04 Absolute Lymph 1.28 X10 3/uL Normal 0.83-4.51 [facility] Comment on above: Performed By: #### L 509.4005, L100.0100, L3890.6005, L900.0098, BTS, L509.8000, L501.9985, L3890.6100, L3890.6300 #### [facility] [address] [place], [address] Absolute Neut 6.5 X10 3/uL Normal 2.0-7.7 [facility] Comment on above: Performed By: #### L 509.4005, L100.0100, L3890.6005, L900.0098, BTS, L509.8000, L501.9985, L3890.6100, L3890.6300 #### [facility] [address] [place], [address] Basophils/100 WBC (Bld) 0.5 % Normal 0-1 [facility] Comment on above: Performed By: #### L 509.4005, L100.0100, L3890.6005, L900.0098, BTS, L509.8000, L501.9985, L3890.6100, L3890.6300 #### [facility] [address] [place], [address] Eosinophils/100 WBC (Bld) 2.0 % Normal 0-5 [facility] Comment on above: Performed By: #### L 509.4005, L100.0100, L3890.6005, L900.0098, BTS, L509.8000, L501.9985, L3890.6100, L3890.6300 #### [facility] [address] [place], [address] Erythrocyte distribution width (RBC) [Ratio] 13.0 % Normal 11.6-14.6 [facility] Comment on above: Performed By: #### L 509.4005, L100.0100, L3890.6005, L900.0098, BTS, L509.8000, L501.9985, L3890.6100, L3890.6300 #### [facility] [address] [place], [address] Hematocrit (Bld) [Volume fraction] 38.4 % Normal 37-47 [facility] Comment on above: Performed By: #### L 509.4005, L100.0100, L3890.6005, L900.0098, BTS, L509.8000, L501.9985, L3890.6100, L3890.6300 #### [facility] [address] [place], [place], [phone] ([phone] Hemoglobin (Bld) [Mass/Vol] 12.6 g/dL Normal 12.0-15.0 [facility] Comment on above: Performed By: #### L 509.4005, L100.0100, L3890.6005, L900.0098, BTS, L509.8000, L501.9985, L3890.6100, L3890.6300 #### [facility] [address] [place], [place], [phone] ([phone] IG% 0.500 Normal 0.0-0.9 [facility] Comment on above: Result Comment: IG% - Immature Granulocytes (promyelocytes, myelocytes and metamyelocytes) > 1% indicates that a LEFT SHIFT is Present. Performed By: #### L 509.4005, L100.0100, L3890.6005, L900.0098, BTS, L509.8000, L501.9985, L3890.6100, L3890.6300 #### [facility] [address] [place], [address] Lymphocytes/100 WBC (Bld) 15.2 % Low 19-41 [facility] Comment on above: Performed By: #### L 509.4005, L100.0100, L3890.6005, L900.0098, BTS, L509.8000, L501.9985, L3890.6100, L3890.6300 #### [facility] [address] [place], [address] MCH (RBC) [Entitic mass] 28.9 pg Normal 27.0-32.0 [facility] Comment on above: Performed By: #### L 509.4005, L100.0100, L3890.6005, L900.0098, BTS, L509.8000, L501.9985, L3890.6100, L3890.6300 #### [facility] [address] [facility] [place], [address] MCHC (RBC) [Mass/Vol] 32.8 g/dL Normal 32-36 [facility] Comment on above: Performed By: #### L 509.4005, L100.0100, L3890.6005, L900.0098, BTS, L509.8000, L501.9985, L3890.6100, L3890.6300 #### [facility] [address] [place], [address] MCV (RBC) [Entitic vol] 88.1 fL Normal 81-99 [facility] Comment on above: Performed By: #### L 509.4005, L100.0100, L3890.6005, L900.0098, BTS, L509.8000, L501.9985, L3890.6100, L3890.6300 #### [facility] [address] [place], [address] Monocytes/100 WBC (Bld) 5.2 % Normal 0-10 [facility] Comment on above: Performed By: #### L 509.4005, L100.0100, L3890.6005, L900.0098, BTS, L509.8000, L501.9985, L3890.6100, L3890.6300 #### [facility] [address] [place], [address] Neutrophils/100 WBC (Bld) 76.6 % High 47-70 [facility] Comment on above: Performed By: #### L 509.4005, L100.0100, L3890.6005, L900.0098, BTS, L509.8000, L501.9985, L3890.6100, L3890.6300 #### [facility] [address] [place], [address] Nucleated RBC (Bld) [#/Vol] 0 10*3/uL Normal 0-5 [facility] Comment on above: Performed By: #### L 509.4005, L100.0100, L3890.6005, L900.0098, BTS, L509.8000, L501.9985, L3890.6100, L3890.6300 #### [facility] [address] [facility] [place], [address] Platelet mean volume (Bld) [Entitic vol] 10.0 fL Normal 6.2-12.0 [facility] Comment on above: Performed By: #### L 509.4005, L100.0100, L3890.6005, L900.0098, BTS, L509.8000, L501.9985, L3890.6100, L3890.6300 #### [facility] [address] [facility] [place], [address] Platelets (Bld) [#/Vol] 234 10*3/uL Normal 150-450 [facility] Comment on above: Performed By: #### L 509.4005, L100.0100, L3890.6005, L900.0098, BTS, L509.8000, L501.9985, L3890.6100, L3890.6300 #### [facility] [address] [place], [address] RBC (Bld) [#/Vol] 4.36 10*6/uL Normal 4.2-5.4 [facility] Comment on above: Performed By: #### L 509.4005, L100.0100, L3890.6005, L900.0098, BTS, L509.8000, L501.9985, L3890.6100, L3890.6300 #### [facility] [address] [place], [place], [phone] (140) RDW SD 42.0 fl Normal 35.1-43.9 [facility] Comment on above: Performed By: #### L 509.4005, L100.0100, L3890.6005, L900.0098, BTS, L509.8000, L501.9985, L3890.6100, L3890.6300 #### [facility] [address] [place], [address] WBC (Bld) [#/Vol] 8.4 10*3/uL Normal 4.4-11.0 [facility] Comment on above: Performed By: #### L 509.4005, L100.0100, L3890.6005, L900.0098, BTS, L509.8000, L501.9985, L3890.6100, L3890.6300 #### [facility] [address] [place], [place], [phone] (355) Eosinophil percentageOrdered By: Jeaneth Lezama on 08-16-2024 Eosinophils/100 WBC (Bld) 2.0 % 0-5 [facility] Erythrocyte distribution wid th ratioOrdered By: Jeaneth Lezama on 08-16-2024 Erythrocyte distribution width (RBC) [Ratio] 13.0 % 11.6-14.6 [facility] Erythrocyte distribution wid th standard deviationOrdered By: Jeaneth Lezama on 08-16-2024 Erythrocyte distribution width (RBC) [Ratio] 42.0 fl 35.1-43.9 [facility] HIV 1 and HIV-2 antibody ass ay with HIV-1 p24 antigen detectionOrdered By: Jeaneth Lezama on 08-16-2024 HIV 1+2 Ab+HIV1 p24 Ag IA Ql Non-Reactive Nonreactive [facility] Hematocrit Auto (Bld) [Volum e fraction]Ordered By: Jeaneth Lezama on 08-16-2024 Hematocrit (Bld) [Volume fraction] 38.4 % 37-47 [facility] Hemoglobin A1con 08-16-2024 HbA1c (Bld) [Mass fraction] 5.3 % Normal 3.8-5.6 [facility] Comment on above: Result Comment: Norm al < 5.7 % Prediabetic 5.7 - 6.4 % Diabetic >or= 6.5 % Please note range changes. Performed By: #### L 509.4005, L100.0100, L3890.6005, L900.0098, BTS, L509.8000, L501.9985, L3890.6100, L3890.6300 #### [facility] [employer] [address] [place], [place], [phone] Hemoglobin A1c percentageOrd ered By: Jeaneth Lezama on 08-16-2024 HbA1c (Bld) [Mass fraction] 5.3 % 3.8-5.6 [facility] Comment on above: Normal < 5.7 % Predi abetic 5.7 - 6.4 % Diabetic >or= 6.5 % Please note range changes. Hemoglobin measurementOrdere d By: Jeaneth Lezama on 08-16-2024 Hemoglobin (Bld) [Mass/Vol] 12.6 g/dL 12.0-15.0 [facility] Hepatitis B Surface Antigeno n 08-16-2024 HEP B Surf Ag Non-Reactive Normal Nonreactive [facility] Comment on above: Order Comment: Reaso n for Exam: Performed By: #### L 509.4005, L100.0100, L3890.6005, L900.0098, BTS, L509.8000, L501.9985, L3890.6100, L3890.6300 ####[facility] [id number] [place], [place], [id number] Hepatitis C Antibodyon 08-16 Hepatitis C AB Non-Reactive Normal Nonreactive [facility] Comment on above: Order Comment: Reaso n for Exam: Result Comment: Non Reactive: < 0.8 Equivocal: >/= 0.8 to < 1.0 Reactive: >/= 1.[address] [facility] requires that a reactive/equivocal HCV antibody result be sent out for confirmation. HCV Quant by PCR testing. Performed By: #### L 509.4005, L100.0100, L3890.6005, L900.0098, BTS, L509.8000, L501.9985, L3890.6100, L3890.6300 ####[facility] [id number] [place], [address] Immature granulocytes/100 WB C Auto (Bld)Ordered By: Jeaneth Lezama on 08-16-2024 Immature granulocytes/100 WBC (Bld) 0.500 % 0.0-0.9 [facility] Comment on above: IG% - Immature Granu locytes (promyelocytes, myelocytes and metamyelocytes) > 1% indicates that a LEFT SHIFT is Present. L509.8000on 08-16-2024 Syphilis Abs Non-Reactive Normal [facility] Comment on above: Order Comment: Reaso n for Exam: Performed By: #### L 509.4005, L100.0100, L3890.6005, L900.0098, BTS, L509.8000, L501.9985, L3890.6100, L3890.6300 ####[facility] [id number] [place], [place], [id number] Laboratory - Chemistry and C hemistry - challengeon 08-16-2024 Glucose Ql (U) Negative [facility] - Urinalysison Protein Ql (U) Negative [facility] MCV (mean corpuscular volume ) determinationOrdered By: Jeaneth Lezama on 08-16-2024 MCV (RBC) [Entitic vol] 88.1 fL 81-99 [facility] Mean corpuscular hemoglobin (MCH) determinationOrdered By: Jeaneth Lezama on 08-16-2024 MCH (RBC) [Entitic mass] 28.9 pg 27.0-32.0 [facility] Mean corpuscular hemoglobin concentration (MCHC) determinationOrdered By: Jeaneth Lezama on 08-16-2024 MCHC (RBC) [Mass/Vol] 32.8 g/dL 32-36 [facility] Mean platelet volume determi nationOrdered By: Jeaneth Lezama on 08-16-2024 Platelet mean volume (Bld) [Entitic vol] 10.0 fL 6.2-12.0 [facility] Monocyte percentageOrdered B y: Jeaneth Lezama on 08-16-2024 Monocytes/100 WBC (Bld) 5.2 % 0-10 [facility] NATERAon 08-16-2024 NATURA SEE SCANNED REPORT Normal [facility] Comment on above: Performed By: #### L 509.4005, L100.0100, L3890.6005, L900.0098, BTS, L509.8000, L501.9985, L3890.6100, L3890.6300 #### [facility] [address] [place] [address]. [place], [address] Neutrophil percentageOrdered By: Jeaneth Lezama on 08-16-2024 Neutrophils/100 WBC (Bld) 76.6 % High 47-70 [facility] Nucleated red blood cell per centageOrdered By: Jeaneth Lezama on 08-16-2024 Nucleated RBC/100 WBC (Bld) [Ratio] 0 % 0-5 [facility] [employer] Office Visit Reporton 08-16-2024 [employer] Office Visit Report [facility] [address], [address] [place] [address] OFFICE VISIT Date of Service: 08/16/24 MR#: [id number] Acct: [id number] Name: REA DAHL Rep #: [id number] : 1990 Provider: ANTHONY Bravo ams Age/Sex: 33/F [place] [facility] Status: Signed Intake Vital Signs 04/16/24 11:36 07/19/24 10:31 08/16/24 11:22 Height 5 ft 9.25 in 5 ft 9.25 in 5 ft 9.25 in Weight: 246 lb BMI 36.0 BP 117/79 Intake Visit Reasons: 12wk OB Audio Visual Aids Director Required: No Accompanied by: Self Is patient in pain?: No Allergies spironolactone Allergy (Mild, Verified 08/16/24 11:34) Dizzyness Food Allergies: Uncoded Allergy (Verified 08/16/24 11:34) Abd cramps/diarrhea Seasonal Allergies: Uncoded (environmental) Allergy (Verified 08/16/24 11:34) NEEDS FOLLOW-UP Medications ???Medication ???Instructions ???Recorded ???Confirmed ???Type Prenatabs FA 1 tab PO/SL DAILY 03/26/21 08/16/24 History cholecalciferol (vitamin D3) 25 25 mcg PO DAILY 01/16/23 08/16/24 History mcg (1,000 unit) capsule vitamin C 30 mg-zinc citrate 1.1 tab PO 01/16/23 08/16/24 History mg-elderberry 25 mg chewable tablet (Sambucus Elderberry) Last Menstrual Period: 05/20/24 Zika: Zika virus screening: Negative : No Nurse's Note: Prior to homeopathic allergy medication called allergiemittel. Asks if this okay to take during . PFSH PFSH Medical History Hx of ovarian cyst Irritable bowel syndrome Gastrointestinal problem Seasonal allergies Surgical History Hx of section History of surgery Family History Mother Anxiety Asthma Arthritis Grandfather Asthma Arthritis CVA (cerebral vascular accident) Grandfather Diabetes Myocardial infarction Father Melanoma Parkinsons Lewy body dementia Grandmother Alzheimers disease Aunt Alzheimers disease Other Mental disorder Social History adopted: No household members: spouse, family and children number of children: 1 current occupational status: unemployed current occupation: [employer] current occupational exposures/hazards: No pets and animals: Yes ( taking care litter box ) pets and animals: cat(s) and dog(s) history of recent travel: Yes ([place] in July 2024) out of state: Yes out of country: No sexually active: Yes Smoking Status: Never smoker alcohol intake: current alcohol intake frequency: holidays/special occasions only details: Not while substance use type: does not use well-balanced diet: daily or most days caffeine: Yes Type: coffee eating out: 1-3 times/week what type of physical activity do you participate in: walking and bicycling frequency: 3-4 times per week duration: 15-30 minutes/day leticia/druze: Islam seatbelt use: always do you feel safe at home: Yes 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 Date Name GA/Weeks Outcome Route Bth Weight Infant Gen Labor Lgth Anesthesia Del Locatn Provider FOB 04/02/21 Marsha 41 live - full term 8lbs Female [address] Shiva Gomez Delivery Date: 04/02/21 Last Updated by: Kelin Vance RN Failure to progress/ intolerance HPI 12wk OB Details: REA DAHL is a 33 year old who presents for routine OB visit. OB Visit RENAE Calculator Estimated Delivery Date Method Current WG Current Estimate 02/24/25 LMP (Certain) 12w 4d Other Estimates 02/23/25 Ultrasound #1 12w 5d Expected Delivery Route/Plan patient counseled regarding risks/benefits of trial of labor versus repeat . ACOG/uptodate education given to patient. 43 % likelihood of success per calculator TOLAC consent form signed: [] Specific Issue/Plans Covid status: [] Flu vaccine: [] Tdap vaccine: [] Rhogam: [] LARC form signed: [] Problem list reviewed and updated with the most current plan of care details and appropriate orders placed. Relevant counseling for the gestational age provided. Continue routine care and follow up unless otherwise noted in visit notes/problem list details Initial Weight: Not Recorded Date -???-???-???-???-??? -???-???-???-???-??? -???-???- EGA Weight BP Urine Prot -???-???-???-???-??? -???-???-???-???-??? -???-???- Glucose FHR FuHt Pres Dilation -???-???-???-???-??? -???-???-???-??? (more content not included)... Normal [facility] Platelet countOrdered By: Nico Lezama on 08-16-2024 Platelets (Bld) [#/Vol] 234 10*3/uL 150-450 [facility] RBC Auto (Bld) [#/Vol]Ordere d By: Jeaneth Lezama on 08-16-2024 RBC (Bld) [#/Vol] 4.36 10*6/uL 4.2-5.4 [facility] Rubella IgGon 08-16-2024 Rubella IgG Reactive Normal Nonreactive [facility] Comment on above: Order Comment: Reaso n for Exam: Result Comment: Anti body Results Interpretation of Immune Status Non Reactive Presumed Non-Immune Equivocal Equivocal Reactive Presumed Immune Performed By: #### L 509.4005, L100.0100, L3890.6005, L900.0098, BTS, L509.8000, L501.9985, L3890.6100, L3890.6300 #### [facility] [address] [place], [address] Serum Treponema species anti body detectionOrdered By: Jeaneth Lezama on 08-16-2024 Treponema sp Ab Ql (S) Non-Reactive [facility] Type AND Screenon 08-16-2024 ABO and Rh group Nom (Bld) Blood group O Rh(D) negative Normal [facility] Comment on above: Order Comment: PN Performed By: #### L 509.4005, L100.0100, L3890.6005, L900.0098, BTS, L509.8000, L501.9985, L3890.6100, L3890.6300 #### [facility] [address] [place], [address] White blood cell (WBC) count Ordered By: Jeaneth Lezama on 08-16-2024 WBC (Bld) [#/Vol] 8.4 10*3/uL 4.4-11.0 [facility] Urine Cultureon 07-21-2024 URC Below infection level. Mixed Gram Positive Organisms [place] Count 1000-10,000 MIXC Mixed contaminants. Submit a new specimen if indicated. Normal [facility] Comment on above: Performed By: #### L 7000.1800, M100.2200 #### [facility] [address] [place], [address] Chlamydia/GC VIJAY aptimaon CHLAMY,NUC ACID Negative Normal Negative [facility] Comment on above: Performed By: #### L 7000.1800, M100.2200 #### [facility] [address] [place], [address] GC BY NUC ACID Negative Normal Negative [facility] Comment on above: Result Comment: Perf ormed at: =G - [facility] [address] [id number] [employer]: Lizbeth Rodrgiez MD, Phone: [phone] Performed By: #### L 7000.1800, M100.2200 #### [facility] [address] 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 Jeaneth Loco DO Age/Sex: 33/F Location: [facility] [place] Status: Signed Intake Vital Signs 04/16/24 11:36 07/19/24 10:29 07/19/24 10:31 Height 5 ft 9.25 in 5 ft 9.25 in 5 ft 9.25 in Weight: 240 lb BMI 35.2 BP 120/81 H Intake Visit Reasons: NOB, LMP 05/20, RENAE 02/24/25 Audio Visual Aids Director Required: No Is patient in pain?: No Allergies spironolactone Allergy (Mild, Verified 07/19/24 10:30) Dizzyness Food Allergies: Uncoded Allergy (Verified 07/19/24 10:30) Abd cramps/diarrhea Seasonal Allergies: Uncoded (environmental) Allergy (Verified 07/19/24 10:30) NEEDS FOLLOW-UP Medications ???Medication ???Instructions ???Recorded ???Confirmed ???Type Prenatabs FA 1 tab PO/SL DAILY 03/26/21 07/19/24 History cholecalciferol (vitamin D3) 25 25 mcg PO DAILY 01/16/23 07/19/24 History mcg (1,000 unit) capsule vitamin C 30 mg-zinc citrate 1.1 tab PO 01/16/23 07/19/24 History mg-elderberry 25 mg chewable tablet (Sambucus Elderberry) Last Menstrual Period: 05/20/24 Zika: Zika virus screening: Negative : No Have you fallen in the past year?: No PFSH PFSH Medical History Hx of ovarian cyst Irritable bowel syndrome Gastrointestinal problem Seasonal allergies Surgical History Hx of section History of surgery Family History Mother Anxiety Asthma Arthritis Grandfather Asthma Arthritis CVA (cerebral vascular accident) Grandfather Diabetes Myocardial infarction Father Melanoma Parkinsons Lewy body dementia Grandmother Alzheimers disease Aunt Alzheimers disease Other Mental disorder Social History adopted: No household members: spouse, family and children number of children: 1 service: No current occupational status: unemployed current occupation: [employer] current occupational exposures/hazards: No pets and animals: Yes ( taking care litter box ) pets and animals: cat(s) and dog(s) history of recent travel: Yes ([place] in July 2024) out of state: Yes out of country: No sexually active: Yes Smoking Status: Never smoker alcohol intake: current alcohol intake frequency: holidays/special occasions only details: Not while substance use type: does not use well-balanced diet: daily or most days caffeine: Yes Type: coffee eating out: 1-3 times/week what type of physical activity do you participate in: walking and bicycling frequency: 3-4 times per week duration: 15-30 minutes/day leticia/druze: Islam seatbelt use: always do you feel safe at home: Yes 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 Date Name GA/Weeks Outcome Route Bth Weight Gen Labor Lgth Anesthesia Del Locatn Provider FOB 04/02/21 Marsha 41 live - full term 8lbs Female [address] [facility] [address] Shiva Gomez Delivery Date: 04/02/21 Last Updated by: Kelin Vance RN Failure to progress/ intolerance HPI NOB, LMP 05/20, RENAE 02/24/25 Details: REA DAHL is a 33 year old who presents for New OB visit. OB Visit RENAE Calculator Estimated Delivery Date Method Current WG Current Estimate 02/24/25 LMP (Certain) 8w 4d Other Estimates 02/23/25 Ultrasound #1 8w 5d Estimated Due Date: 02/24/25 Expected Delivery Route/Plan patient counseled regarding risks/benefits of trial of labor versus repeat . ACOG/uptodate education given to patient. 43 % likelihood of success per calculator TOLAC consent form signed: [] Specific Issue/Plans Covid status: [] Flu vaccine: [] Tdap vaccine: [] Rhogam: [] LARC form signed: [] Problem list reviewed and updated with the most current plan of care details and appropriate orders placed. Relevant counseling for the gestational age provided. Continue routine care and follow up unless otherwise noted in visit notes/problem list details Initial Weight: Not Recorded Date -???-???-???-???-??? -???-???-???-???-??? -???-???- EGA Weight BP Urine Prot -???-???-???-???-??? -???-???-???-???-??? -???-???- Glucose FHR FuHt Pres Dilation -???-???-???-???-??? -???-???-???-???-??? -???-???- Ef (more content not included)... Normal [facility] Absolute lymphocyte countOrd ered By: Oleksandr Katz on 05-31-2023 Lymphocytes Auto (Unsp spec) [#/Vol] 1.84 10*3/uL 0.83-4.51 [facility] Basophil percentageOrdered B y: Oleksandr Katz on 05-31-2023 Basophils/100 WBC (Bld) 0.5 % 0-1 [facility] Bilirubin [Mass/Vol] 0.60 mg/dL 0.20-1.00 [facility] Comment on above: For patients on eltr ombopag therapy, use of Dimension [place] TBIL is not recommended. Chloride [Moles/Vol] 108 mmol/L 98-107 [facility] Cholesterol [Mass/Vol] 162 mg/dL <200 [facility] Comment on above: <200 mg/dL Desirable 200-240 mg/dL Borderline >240 mg/dL High Risk Eosinophils/100 WBC (Bld) 3.8 % 0-5 [facility] Glucose [Mass/Vol] 81 mg/dL 74-106 [facility] Neutrophils (Bld) [#/Vol] 4.6 10*3/uL 2.0-7.7 [facility] Neutrophils/100 WBC (Bld) 63.0 % 47-70 [facility] Potassium [Moles/Vol] 3.9 mmol/L 3.5-5.1 [facility] Protein [Mass/Vol] 7.0 g/dL 6.4-8.2 [facility] Sodium [Moles/Vol] 139 mmol/L 136-145 [facility] Triglyceride [Mass/Vol] 128 mg/dL <199 [facility] Comment on above: The drugs N-Acetylcy steine and Metamizole may falsely depress this assay.Serum Triglycerides Reference Interval Normal <150 mg/dL Borderline high 150 - 199 mg/dL High 200 - 499 mg/dL Very High > or = 500 mg/dL WBC (Bld) [#/Vol] 7.3 10*3/uL 4.4-11.0 [facility] Blood erythrocytes count (nu mber/volume)Ordered By: Oleksandr Katz on 05-31-2023 RBC (Bld) [#/Vol] 4.66 10*6/uL 4.2-5.4 [facility] Blood hemoglobin measurement (mass/volume)Ordered By: Oleksandr Katz on 05-31-2023 Hemoglobin (Bld) [Mass/Vol] 13.4 g/dL 12.0-15.0 [facility] Blood lymphocytes/100 leukoc ytesOrdered By: Oleksandr Katz on 05-31-2023 Lymphocytes/100 WBC (Bld) 25.3 % 19-41 [facility] Blood monocytes/100 leukocyt esOrdered By: Oleksandr Katz on 05-31-2023 Monocytes/100 WBC (Bld) 7.1 % 0-10 [facility] Blood platelet mean volumeOr dered By: Oleksandr Katz on 05-31-2023 Platelet mean volume (Bld) [Entitic vol] 10.3 fL 6.2-12.0 [facility] Determination of erythrocyte mean corpuscular volume (MCV)Ordered By: Oleksandr Katz on 05-31-2023 MCV (RBC) [Entitic vol] 91.0 fL 81-99 [facility] Hematocrit Auto (Bld) [Volum e fraction]Ordered By: Oleksandr Katz on 05-31-2023 Hematocrit (Bld) [Volume fraction] 42.4 % 37-47 [facility] - Chemistry and C hemistry - challengeOrdered By: Oleksandr Katz on 05-31-2023 ALP [Catalytic activity/Vol] 49 U/L 45-117 [facility] ALT [Catalytic activity/Vol] 33 U/L 13-56 [facility] CO2 [Moles/Vol] 27.0 mmol/L 21.0-32.0 [facility] Globulin (S) [Mass/Vol] 3.5 g/dL 2.2-4.2 [facility] Urea nitrogen/Creatinine [Mass ratio] 22.5 mg/mg 10-20 [facility] - Hematology and Cell countsOrdered By: Oleksandr Katz on 05-31-2023 Erythrocyte distribution width (RBC) [Entitic vol] 41.5 fL 35.1-43.9 [facility] Erythrocyte distribution width (RBC) [Ratio] 12.6 % 11.6-14.6 [facility] Immature granulocytes/100 WBC (Bld) 0.300 % 0.0-0.9 [facility] Comment on above: IG% - Immature Granu locytes (promyelocytes, myelocytes and metamyelocytes) > 1% indicates that a LEFT SHIFT is Present. MCH (RBC) [Entitic mass] 28.8 pg 27.0-32.0 [facility] Nucleated RBC/100 WBC (Bld) [Ratio] 0 % 0-5 [facility] MCHC Auto (RBC) [Mass/Vol]Or dered By: Oleksandr Katz on 05-31-2023 MCHC (RBC) [Mass/Vol] 31.6 g/dL 32-36 [facility] No Panel InformationOrdered By: Oleksandr Katz on 05-31-2023 Estimated GFR (MDRD) Amer 141 mL/min >60 [facility] Comment on above: GFR Calc Estimated GFR (MDRD) Non-Af Amer 117 mL/min >60 [facility] Comment on above: Non- GFR Calc Platelets bldOrdered By: Chelsy Katz on 05-31-2023 Platelets (Bld) [#/Vol] 271 10*3/uL 150-450 [facility] Serum or plasma albumin theresa urement (mass/volume)Ordered By: Oleksandr Katz on 05-31-2023 Albumin [Mass/Vol] 3.5 g/dL 3.2-5.0 [facility] Serum or plasma albumin/glob ulin mass ratioOrdered By: Oleksandr Katz on 05-31-2023 Albumin/Globulin [Mass ratio] 1.0 {ratio} 0.9-2.4 [facility] Serum or plasma calcium theresa urement (mass/volume)Ordered By: Oleksandr Katz on 05-31-2023 Calcium [Mass/Vol] 8.4 mg/dL 8.5-10.1 [facility] Serum or plasma cholesterol in HDL measurement (mass/volume)Ordered By: Oleksandr Katz on 05-31-2023 Cholesterol in HDL [Mass/Vol] 43 mg/dL >40 [facility] Comment on above: The drugs N-Acetylcy steine and Metamizole may falsely depress this assay. Reference Range HDL <40 mg/dL Low HDL Cholesterol HDL >or= 60 mg/dL High HDL Cholesterol Serum or plasma cholesterol in VLDL measurement (mass/volume)Ordered By: Oleksandr Katz on 05-31-2023 Cholesterol in VLDL [Mass/Vol] 26 mg/dL 5-40 [facility] Serum or plasma creatinine m easurement (mass/volume)Ordered By: Oleksandr Katz on 05-31-2023 Creatinine [Mass/Vol] 0.62 mg/dL 0.55-1.02 [facility] Comment on above: The validity of the calculated GFR & GFRAA in patients over 70 years has not been determined. Clinical correlation is essential. Serum or plasma low density lipoprotein (LDL) cholesterol measurement (mass/volume)Ordered By: Oleksandr Katz on 05-31-2023 Cholesterol in LDL [Mass/Vol] 93 mg/dL 0-130 [facility] Serum or plasma urea nitroge n measurement (mass/volume)Ordered By: Oleksandr Katz on 05-31-2023 Urea nitrogen [Mass/Vol] 14 mg/dL 7-18 [facility] Thin prep Papanicolaou smear with manual screeningOrdered By: Oleksandr Katz on 05-31-2023 Thin prep Papanicolaou smear with manual screening 14 U/L 15-37 [facility] Thin prep Papanicolaou smear with manual screening 4 5-15 [facility] Cervical or vagninal specime n microscopic examination by cytology stain (reported ason 06-18-2022 Cytology report Cyto stain Doc (Cvx/Vag) Comment . [facility] Work Phone: Comment on above: The Pap smear is a s creening test designed to aid in thedetection of premalignant and malignant conditions of theuterine cervix. It is not a diagnostic procedure andshould not be used as the sole means of detecting cervicalcancer. Both false-positive and false-negative reports dooccur. Detection in cervical specim en of any of human papilloma virus (HPV) 16, 18, 31, 33,on 06-18-2022 HPV 16+18+31+33+35+39+45+51 +52+56+58+59+66+68 DNA Probe+sig amp Ql (Cvx) Negative Negative [facility] Work Phone: Comment on above: This nucleic acid am plification test detects fourteen high-risk HPV types (16,18,31,33,35,39,45,51,52,56,58,59,66,68)without differentiation. Laboratory - Cytologyon 06-04 [place] [facility] Cyto stain Nom (Cvx/Vag) [ID] Comment . [facility] Work Phone: Comment on above: Donna Celeste ytotechnologist (ASCP) Laboratory - Miscellaneous t estson 06-18-2022 Service comment (Unsp spec) [Interp] Comment . [facility] Work Phone: Comment on above: This liquid based Th inPrep(R) pap test was screened withthe use of an image guided system. Service comment (Unsp spec) [Interp] . . [facility] Work Phone: Liquid-based cerv Pap + CT/G C by VIJAY w reflex to high-risk HPV for ASCUSon 06-18-2022 Cytology report Cyto stain.thin prep Doc (Cvx/Vag) Comment . [facility] Work Phone: Comment on above: Criteria not met, HP V Genotype not performed.Performed at: [address], [place], [place] [id number] Director: Lizbeth Rodrigez MD, Phone: [phone] at: =G - [facility] [place] [id number] Director: Lizbeth Rodrigez MD, Phone: [phone] No Panel Informationon 06-18 Pathology report final diagnosis Narrative Comment . [facility] Work Phone: Comment on above: NEGATIVE FOR INTRAEP ITHELIAL LESION OR MALIGNANCY. STREP A MOLECULAR (POC)on Procedural Control Valid [facility] Strep A (POCT) Negative Negative [facility] CNOVon 12-14-2021 CNOV Office Visit (UCWSTR) REA DAHL ([id number]) 1990 F Date Time Provider Department 12/14/21 6:30 PM CARMELA SUN [facility] During your visit today, we recorded the following information about you: Temperature Pulse Respiration Blood pressure 98.5 degrees 82/minute 16/minute 122/70 Weight 107 kg Carmela Sun APRN.CNP 12/14/2021 6:57 PM Signed Subjective HPI HPI Rea Wheeler Nabila is a 31 year old female who presents today for CC of left arm itchy rash. This started 1 day ago. Has tried otc medication for relief. Symptoms are worsened by nothing. Risk factors hx of bad reaction to PI. Denies fever. .Patient presents with: Rash: itching, left arm x 1 days- PAST MEDICAL HISTORY Diagnosis Date - Acne - History of anxiety 03/29/2015 - Postinflammatory hyperpigmentation - Seasonal allergies 05/16/2021 Seeing [place] [facility] - Sebaceous cyst PAST SURGICAL HISTORY Procedure Laterality Date - ADENOIDECTOMY PRIMARY Adenoidectomy - TONSILLECTOMY PRIMARY/SECONDARY Tonsillectomy ALLERGIES Animal Dander, Dust, Grass Pollen, and Kariva [Desogestrel-Ethinyl Estradiol] MEDICATIONS vit/iron fum/folic ac (-FOLIC ACID ORAL) Take by mouth once daily. fexofenadine (TIFFANY) 180 mg ORAL tablet Take one(1) tablet daily. triamcinolone acetonide (KENALOG) 0.1 % cream Apply 1 application to affected area three times daily for 10 days. Apply sparingly to area for rash/itching. FAMILY HISTORY Problem Relation Age of Onset - Coronary Artery Disease Paternal Grandmother - Coronary Artery Disease Maternal Grandmother - Alzheimer's Disease Maternal Grandmother Social History Tobacco Use - Smoking status: Never Smoker - Smokeless tobacco: Never Used Substance Use Topics - Alcohol use: No - Drug use: No Review of Systems Constitutional: Negative for chills and fever. Skin: Positive for itching and rash ( ). Objective Blood pressure 122/70, pulse 82, temperature 36.9 ?C (98.5 ?F), resp. rate 16, weight 107 kg (236 lb), last menstrual period 10/02/2021, SpO2 98 %. Physical Exam Constitutional: General: She is not in acute distress. Appearance: She is not toxic-appearing or diaphoretic. HENT: Head: Normocephalic and atraumatic. Skin: General: Skin is warm and dry. Findings: Rash present. Rash is vesicular (distribution linear ). Neurological: Mental Status: She is alert and oriented to person, place, and time. ASSESSMENT/PLAN: 1. Rhus dermatitis - ICD9: 692.6, ICD10: L25.5 - Topical steriod tx with Rx for steriod cream/ointment- see orders - discussed skin care of rash - follow up if symptoms persist or worsen. - TRIAMCINOLONE ACETONIDE 0.1 % TOPICAL CREAM Agrees to plan Carmela Sun APRN.[employer]INE ENGINEERING TEACHER Referring Provider: SELF [200] Allergies As of Date: 12/14/2021 Noted Allergy Reaction ANIMAL DANDER 01/16/2016 3 - Cough Comments: Nasal congestion DUST 01/16/2016 14 - Other: See Comments Comments: Nasal congestion GRASS POLLEN 01/16/2016 3 - Cough Comments: Nasal congestion KARIVA (DESOGESTREL-ETHINYL ESTRA*04/27/2020 14 - Other: See Comments Comments: Mood swings, weight gain Date Reviewed: 12/14/2021 Reviewed by: Carmela Sun APRN.MARINE ENGINEERING TEACHER - Fully Assessed Reason for Visit: Rash [1087] Cmt: itching, left arm x 1 days- Primary Visit Diagnosis:Rhus dermatitis [L25.5] Order(s):triamcinolo ne acetonide (KENALOG) 0.1 % creamApply 1 application to affected area three times daily for 10 days. Apply sparingly to area for rash/itching.Disp: 80 gRfl: 1 Prescriptions as of 12/14/2021 - triamcinolone acetonide (KENALOG) 0.1 % cream Apply 1 application to affected area three times daily for 10 days. Apply sparingly to area for rash/itching. - vit/iron fum/folic ac (-FOLIC ACID ORAL) Take by mouth once daily. - fexofenadine (TIFFANY) 180 mg ORAL tablet Take one(1) tablet daily. Meds Comments as of 03/02/2007: All medications have been reviewed today /03/02/2007 Annika Mullins [facility] All medications have been reviewed today /03/02/2007 Annika Mullins [facility] Problem List As Of Date 12/14/2021 Noted Resolved Abdominal pain, unspecified site [R10.9] 06/20/2006 07/16/2017 Pain in joint, ankle and foot [M25.579] 12/12/2007 07/16/2017 History of anxiety [Z86.59] 03/29/2015 Seasonal allergies [J30.2] 05/16/2021 Screening for diabetes mellitus [Z13.1] 05/16/2021 Encounter for lipid screening for cardiovascula*2021 Well adult exam [Z00.00] 11/14/2021 Palpitations [R00.2] 11/14/2021 Prescriptions ordered this encounter Disp Refills Start End TRIAMCINOLONE ACETONIDE 0.1 % TOPICA* 80 g 1 12/14/2021 12/24/2021 Route: TOPICAL Sig: Apply 1 application to affected area three times daily for 10 days. Apply sparingly to area for rash/itching. Encounter Status:Closed by MIKEL SUN (more content not included)... Normal [facility] Franky 12-14-2021 CNPN Telephone (FAMPWS) REA DAHL ([id number]) 1990 F Date Time Provider Department 12/14/21 [facility] your visit today, we recorded the following information about you: Luana Sneed RN 12/14/2021 3:38 PM Signed Pt called in and reports she has Poison Lucille on her arms. She states her mom get Mometasone Furoate a topical steroid, that they have used with success before. Pt asking if provider would be willing to send in a prescription for her to [facility] in [place], and if it would be safe to use while breast feeding. Please call and advise. Patient has been identified by name and date of : Yes Patient phones for refill(s): Pending Prescriptions Disp Refills MOMETASONE 0.1 % TOPICAL OINTMENT Sig: Apply to affected area once daily. Date of last office visit in primary care: 11/14/21 Future visit: none Last 2 Encounter Wt Readings: Date: Wt: 11/14/2021 106.1 kg (234 lb) 05/16/2021 105.7 kg (233 lb) Previous labs/tests for medication: Blood Pressure: BUN (mg/dL) Date Value 04/28/2020 12 Sodium (mmol/L) Date Value 04/28/2020 139 Last 1 Encounter BP Readings: Date: BP: 11/14/2021 112/70 Liver Function: ALT (U/L) Date Value 04/28/2020 38 AST (U/L) Date Value 04/28/2020 26 Please advise. Thank you. MAMTA Ogden MD 12/14/2021 5:23 PM Signed Advise patient to come into the [facility] care to be seen and evaluated. Carlos Alberto Wan MA 12/14/2021 5:27 PM Addendum Patient notified. Carlos Alberto Wan MA Allergies As of Date: 12/14/2021 Noted Allergy Reaction ANIMAL DANDER 01/16/2016 3 - Cough Comments: Nasal congestion DUST 01/16/2016 14 - Other: See Comments Comments: Nasal congestion GRASS POLLEN 01/16/2016 3 - Cough Comments: Nasal congestion KARIVA (DESOGESTREL-ETHINYL ESTRA*04/27/2020 14 - Other: See Comments Comments: Mood swings, weight gain Date Reviewed: 11/14/2021 Reviewed by: Benson Das MD - Fully Assessed Reason for Visit: Medication Request [138] Prescriptions as of 12/14/2021 - vit/iron fum/folic ac (-FOLIC ACID ORAL) Take by mouth once daily. - fexofenadine (TIFFANY) 180 mg ORAL tablet Take one(1) tablet daily. Meds Comments as of 03/02/2007: All medications have been reviewed today /03/02/2007 Annika Mullins [facility] All medications have been reviewed today /03/02/2007 Annika Mullins [facility] Problem List As Of Date 12/14/2021 Noted Resolved Abdominal pain, unspecified site [R10.9] 06/20/2006 07/16/2017 Pain in joint, ankle and foot [M25.579] 12/12/2007 07/16/2017 History of anxiety [Z86.59] 03/29/2015 Seasonal allergies [J30.2] 05/16/2021 Screening for diabetes mellitus [Z13.1] 05/16/2021 Encounter for lipid screening for cardiovascula*2021 Well adult exam [Z00.00] 11/14/2021 Palpitations [R00.2] 11/14/2021 Encounter Status:Closed by CARLOS ALBERTO WAN on 12/14/21 [facility] Franky 12-12-2021 YANELISN Telephone (FAMPWS) REA DAHL ([id number]) 1990 F Date Time Provider Department 12/12/21 BENSON DAS During your visit today, we recorded the following information about you: Benson Das MD 12/12/2021 12:15 PM Signed Let patient know her sugar test and thyroid labs were ok. Her lipid panel was ok except her Trigs were slightly elevated at 160 (goa<150) Advise trying to reduce fat in diet. Carla Valverde LPN 12/12/2021 12:47 PM Signed Left message of results and instructions on pt's identified vm. Carla Valverde LPN Allergies As of Date: 12/12/2021 Noted Allergy Reaction ANIMAL DANDER 01/16/2016 3 - Cough Comments: Nasal congestion DUST 01/16/2016 14 - Other: See Comments Comments: Nasal congestion GRASS POLLEN 01/16/2016 3 - Cough Comments: Nasal congestion KARIVA (DESOGESTREL-ETHINYL ESTRA*04/27/2020 14 - Other: See Comments Comments: Mood swings, weight gain Date Reviewed: 11/14/2021 Reviewed by: Benson Das MD - Fully Assessed Reason for Visit: Results [95] Prescriptions as of 12/12/2021 - vit/iron fum/folic ac (-FOLIC ACID ORAL) Take by mouth once daily. - fexofenadine (TIFFANY) 180 mg ORAL tablet Take one(1) tablet daily. Meds Comments as of 03/02/2007: All medications have been reviewed today /03/02/2007 Annika Mullins [employer] All medications have been reviewed today /03/02/2007 Annika Mullins CMA Problem List As Of Date 12/12/2021 Noted Resolved Abdominal pain, unspecified site [R10.9] 06/20/2006 07/16/2017 Pain in joint, ankle and foot [M25.579] 12/12/2007 07/16/2017 History of anxiety [Z86.59] 03/29/2015 Seasonal allergies [J30.2] 05/16/2021 Screening for diabetes mellitus [Z13.1] 05/16/2021 Encounter for lipid screening for cardiovascula*2021 Well adult exam [Z00.00] 11/14/2021 Palpitations [R00.2] 11/14/2021 Encounter Status:Closed by CARLA VALVERDE LPN on 12/12/21 [facility] HGB A1Con 12-11-2021 Average glucose Estimated from glycated hemoglobin (Bld) [Mass/Vol] 111 mg/dL [facility] Comment on above: Order Comment: Bernice blank Type: BLOOD SPECIMEN Ordering Facility: [facility] Address: [address] [place] [address] Result Comment: eAG: (Estimated average glucose) is a calculated value from HgbA1c and is brewery representative of the average blood glucose level in the last 2-3 month period. Performed By: #### L QUINTIN, 3015-10, FT4 #### [facility] CLIA [id number] [address] [place] [address] [place] HbA1c (Bld) [Mass fraction] 5.5 % Normal 4.3-5.6 [facility] Comment on above: Order Comment: Bernice blank Type: BLOOD SPECIMEN Ordering Facility: [facility] Address: [address] [place] [address] Result Comment: Amer ican Diabetes Association guidelines indicate that patients with HgbA1c in the range 5.7-6.4% are at increased risk for development of diabetes, and intervention by lifestyle modification may be beneficial. HgbA1c greater or equal to 6.5% is considered diagnostic of diabetes. Performed By: #### L QUINTIN, 3, FT4 #### [facility] CLIA [id number] [address] [place] [address] [place] LIPID PANEL, NONFASTINGon Cholesterol [Mass/Vol] 178 mg/dL Normal <200 [facility] Comment on above: Order Comment: Bernice blank Type: BLOOD SPECIMEN Ordering Facility: [facility] Address: [address] [place] [address] Result Comment: <200 mg/dL, Desirable 200-239 mg/dL, Borderline high >239 mg/dL, High Performed By: #### L IPNF, 6-3, FT4 #### [facility] CLIA [id number] [facility] HDL CHOLESTEROL, NF 41 mg/dL Normal >39 [facility] Comment on above: Order Comment: Bernice blank Type: BLOOD SPECIMEN Ordering Facility: [facility] Address: [address] [place] [address] Result Comment: 40-5 9 mg/dL, Acceptable >59 mg/dL, High: Negative risk factor for coronary heart disease <40 mg/dL, Low: Positive risk factor for coronary heart disease Performed By: #### L IPNF, 6-3, FT4 #### [facility] CLIA [id number] [address] [place] [address] LDL CHOLESTEROL, NF 105 mg/dL High <100 [facility] Comment on above: Order Comment: Bernice blank Type: BLOOD SPECIMEN Ordering Facility: [facility] Address: [address] [place] [address] Result Comment: <100 mg/dL, Optimal 100-129 mg/dL, Near optimal/above optimal 130-159 mg/dL, Borderline high 160-189 mg/dL, High >189 mg/dL, Very high Secondary prevention optimal LDL Cholesterol levels are recommended to be < 70 mg/dL Performed By: #### L IPNF, 6-3, FT4 #### [facility] CLIA [id number] [address] [place] [address] LDL/HDL RATIO, NF 2.56 mg/dL High <2.54 [facility] Comment on above: Order Comment: Bernice abhay Type: BLOOD SPECIMEN Ordering Facility: [facility] Address: [address] [place] [address] Result Comment: Refe rence: 1. National Cholesterol Education Program ATP III Guideline At-A-Glance Quick Desk Reference: National Heart, Lung, and Blood [place]. National Institutes of Health. 2001: NIH Publication No. 01-3305. 2. An International Atherosclerosis Society position paper: global recommendations for the management of dyslipidemia: executive summary, Atherosclerosis. 2014: 232(2):410-413. Performed By: #### L QUINTIN, 3015-3, FT4 #### [facility] CLIA [id number] [address] [place] [address] [facility] NON HDL CHOL, NF 137 mg/dL High <130 [facility] Comment on above: Order Comment: Bernice blank Type: BLOOD SPECIMEN Ordering Facility: [facility] Address: [address] [place] [address] Result Comment: <130 mg/dL, Optimal 130-159 mg/dL, Near optimal/above optimal 160-189 mg/dL, Borderline high 190-219 mg/dL, High >219 mg/dL, Very high Secondary prevention optimal non HDL Cholesterol levels are recommended to be <100 mg/dL Performed By: #### L QUINTIN, 3015-3, FT4 #### [facility] CLIA [id number] [address] [place] [address] T CHOL/HDL RATIO NF 4.34 mg/dL Normal <5.10 [facility] Comment on above: Order Comment: Bernice blank Type: BLOOD SPECIMEN Ordering Facility: [facility] Address: [address] [place] [address] Performed By: #### L QUINTIN, 3015-3, FT4 #### [facility] CLIA [id number] [address] [place] [address] OF [place] TRIGLYCERIDES, NF 160 mg/dL High <150 [facility] Comment on above: Order Comment: Bernice blank Type: BLOOD SPECIMEN Ordering Facility: [facility] Address: [address] [place] [address] Result Comment: <150 mg/dL, Normal 150-199 mg/dL, Borderline high 200-499 mg/dL, High >499 mg/dL, Very high Performed By: #### L QUINTIN, 3015-3, FT4 #### [facility] CLIA [id number] [address] [place] [address] [place] VLDL CHOLESTEROL, NF 32 mg/dL High <30 [facility] Comment on above: Order Comment: Bernice blank Type: BLOOD SPECIMEN Ordering Facility: [facility] Address: [address] [place] [address] Performed By: #### L IPNF, 3016-3, FT4 #### [facility] CLIA [id number] [address] [place] [address] [place] T4 FREE/FREE THYROXon 2021 Free T4 [Mass/Vol] 0.9 ng/dL Normal 0.9-1.[address] [facility] Comment on above: Order Comment: Bernice blank Type: BLOOD SPECIMEN Ordering Facility: [facility] Address: [address] [place] [address] Performed By: #### L IPNF, 3016-3, FT4 #### [facility] CLIA [id number] [address] [place] [address] [place] TSH SerPl-aCncon 12-11-2021 TSH Qn 1.210 m[IU]/L Normal 0.270-4.200 [facility] Comment on above: Order Comment: Bernice blank Type: BLOOD SPECIMEN Ordering Facility: [facility] Address: [address] [place] [address] Result Comment: If t he patient is , TSH reference range varies by gestational period: First Trimester (weeks 9-12): 0.180-2.990 mIU/L Second Trimester: 0.110-3.980 mIU/L Third Trimester: 0.480-4.710 mIU/L Carroll Wheeler et al. A Practical Approach for the Verifications and Determination of Site- and Trimester-Specific Reference Intervals for Thyroid Function tests in . Thyroid, 2019:29:3:412-420. Denny E, et al. 2017 Guidelines of the [place] Thyroid Association for the Diagnosis and Management of Thyroid Disease during and the . Thyroid, 2017:27:3:315-389. Performed By: #### L [facility], 3016-3, FT4 #### [facility] CLIA [id number] [address] [place] [address] [place] CNOVon 11-14-2021 CNOV Office Visit (FAMPWS) REA DAHL ([id number]) 1990 F Date Time Provider Department 11/14/21 3:20 PM BENSON DAS FAMPWS During your visit today, we recorded the following information about you: Pulse Respiration Blood pressure Weight 68/minute 16/minute 112/70 106.1 kg Height Last Period 1.702 m 10/02/21 Benson Das MD 11/14/2021 4:36 PM Signed Chief Complaint Patient presents with: 6 Month Exam: patient is here for 6 month physical HPI Rea Dahl is a 31 year old female who presents here today for Establish care. Patient has a past Hx of anxiety during a time when her mother had a subarachnoid hemorrhage and her father had been diagnosed with Parkinson's and Lewy Body disease. Patient never needed treatment and used bio feed back. Has been doing much better. Concerns: Patient had covid in Jun/Jul and she has noticed a fluttering/tightness when she is having anxiety. No chest pain, shortness of breath, lightheadedness of dizziness. Working on meditation more. This has helped and has not had fluttering in a week. Also drainage but she feels this is from seasonal allergies. She is currently breast feeding. Past medical history, appointments, medications, allergies reviewed. Previous Medical History PAST MEDICAL HISTORY Diagnosis Date - Acne - History of anxiety 03/29/2015 - Postinflammatory hyperpigmentation - Seasonal allergies 05/16/2021 Seeing [place] [facility] - Sebaceous cyst Previous Surgical History PAST SURGICAL HISTORY Procedure Laterality Date - REMOVAL ADENOIDS,PRIMARY,<12 Y/O Adenoidectomy - REMOVAL OF TONSILS,<12 Y/O Tonsillectomy Family History FAMILY HISTORY Problem Relation Age of Onset - Coronary Artery Disease Paternal Grandmother - Coronary Artery Disease Maternal Grandmother - Alzheimer's Disease Maternal Grandmother Patient Allergies ALLERGIES Allergen Reactions - Animal Dander Cough Nasal congestion - Dust Other: See Comments Nasal congestion - Grass Pollen Cough Nasal congestion - Kariva [Desogestrel* Other: See Comments Mood swings, weight gain Current Medications Current Outpatient Medications on File Prior to Visit Medication Sig - fexofenadine (TIFFANY) 180 mg ORAL tablet Take one(1) tablet daily. No current facility-administere d medications on file prior to visit. Social History Social History Tobacco Use - Smoking status: Never Smoker - Smokeless tobacco: Never Used Substance Use Topics - Alcohol use: No - Drug use: No Review of Symptoms REVIEW OF SYSTEMS GENERAL: No weight loss, malaise or fevers HEENT: Negative for frequent or significant headaches, No changes in hearing or vision, no nose bleeds or other nasal problems. Just her allergies. NECK: Negative for lumps, goiter, pain and significant neck swelling RESPIRATORY: Negative for cough, hemoptysis, wheezing, COPD, dyspnea or shortness of breath CARDIOVASCULAR: Negative for chest pain, leg swelling, hypertension, CHF. see HPI GI: No nausea, vomiting, or diarrhea and No heartburn or reflux symptoms : No history of dysuria, frequency or incontinence MUSCULOSKELETAL: Negative for joint pain or swelling, back pain or muscle pain SKIN: Negative for lesions, rash, and itching PSYCH: See HPI HEMATOLOGY/LYMPHOLOG Y: Negative for prolonged bleeding, bruising easily or swollen nodes ENDOCRINE: Negative for cold or heat intolerance, polyuria, polydipsia and goiter NEURO: No history of headaches, syncope, paralysis, seizures or tremors EXAM: BP 112/70 (BP Site: Left Arm, BP Position: Sitting, BP Cuff Size: Large Adult) Pulse 68 Resp 16 Ht 170.2 cm (5' 7) Wt 106.1 kg (234 lb) LMP 10/02/2021 BMI 36.65 kg/m? Last 5 Encounter Wt Readings: Date: Wt: 11/14/2021 106.1 kg (234 lb) 05/16/2021 105.7 kg (233 lb) 04/27/2020 99.3 kg (219 lb) 07/16/2017 99.8 kg (220 lb) 01/16/2016 98.4 kg (217 lb) General Appearance: Well appearing, alert, in no acute distress, well-hydrated, well nourished.. Skin: Skin color, texture, turgor normal, no suspicious rashes or lesions. Head: Normocephalic, no masses, lesions, tenderness or abnormalities. Eyes: Anicteric sclera. Pupils are equally round and reactive to light. Extraocular movements are intact. . Ears: External ears, TM's normal, canals clear. Nose/Sinuses: Nares normal, septum midline, mucosa normal, no drainage or sinus tenderness. Lungs: Lungs clear to auscultation. No wheezing, rhonchi, rales.. Heart: RRR without murmur, gallop, or rubs. No ectopy. Abdomen: Normal abdominal exam, Abdomen soft, non-tender. Bowel sounds normal. No masses, organomegaly. Extremities: No deformities, edema, skin discoloration, clubbing or cyanosis. . Musculoskeletal: Spine range of motion normal. Muscular strength intact, No joint swelling, deformity, or tenderness. (more content not included)... [facility] REA DAHL ([id number]) 1990 F Date Time Provider Department 07/04/21 [facility] During your visit today, we recorded the following information about you: Monisha Suazo RN 07/04/2021 2:30 PM Signed is aware order for monoclonal AB was sent and now having second thoughts: Patient is nursing their baby and they are told infusion will take 2 1/2 hours. Unsure if baby will be able to handle being away from mom. Concerned about contamination. Asking what Dr. Das recommends. Benson Das MD 07/04/2021 3:42 PM Signed Not sure what means by contamination? By mom getting infusion it can probably give the some protection. Florinda Alvarez Ma 07/04/2021 3:52 PM Signed Spouse was notified Florinda Alvarez Ma Allergies As of Date: 07/04/2021 Noted Allergy Reaction ANIMAL DANDER 01/16/2016 3 - Cough Comments: Nasal congestion DUST 01/16/2016 14 - Other: See Comments Comments: Nasal congestion GRASS POLLEN 01/16/2016 3 - Cough Comments: Nasal congestion KARIVA (DESOGESTREL-ETHINYL ESTRA*04/27/2020 14 - Other: See Comments Comments: Mood swings, weight gain Date Reviewed: 05/16/2021 Reviewed by: Florinda Alvarez Ma - Fully Assessed Reason for Visit: Monoclonal AB [Other] Prescriptions as of 07/04/2021 - fexofenadine (TIFFANY) 180 mg ORAL tablet Take one(1) tablet daily. Meds Comments as of 03/02/2007: All medications have been reviewed today /03/02/2007 Annika Mullins [employer] All medications have been reviewed today /03/02/2007 Annika Mullins [employer] Problem List As Of Date 07/04/2021 Noted Resolved Abdominal pain, unspecified site [R10.9] 06/20/2006 07/16/2017 Pain in joint, ankle and foot [M25.579] 12/12/2007 07/16/2017 History of anxiety [Z86.59] 03/29/2015 Seasonal allergies [J30.2] 05/16/2021 Screening for diabetes mellitus [Z13.1] 05/16/2021 Encounter for lipid screening for cardiovascula*2020 Encounter Status:Closed by FLORINDA ALVAREZ MA on 07/04/21 [facility]y 07-03-2021 CNPN Telephone (FAMPWS) DAHLREA GRAF ([id number]) 1990 F Date Time Provider Department 07/03/21 BENSON DAS During your visit today, we recorded the following information about you: Florinda Alvarez Ma 07/03/2021 8:04 AM Signed Patient spouse sent mychart below requesting antibody infusion. Did covid test on 07/02 order form is on pcp desk Dr. Das; My has been fighting a mild dry cough and general fatigue since late Friday. Friday night, she developed a fever; it has risen and fallen, peaking at 102.0 earlier today (now approx. 101.4 and falling). What with one thing and another, we tested her for Covid with an at-home test - result: Positive. We did call [facility] for advice, and asked that you be informed - hopefully you've received the triage nurse's report (gathered by phone). This message is to ask for your insight and, if applicable, assistance in getting Cherry the antibody infusion that many friends and relations are recommending. The night nurse tells me that Cherry will first need a COVID-positive test from the Urgent Care lab, or [facility] lab; we'll plan to go in Friday morning, early, once Cherry's had a bit of rest. If you know any way to expedite her access into such a test, that would be greatly appreciated - nobody wants Cherry sitting in the lobby for an hour with a Covid cough! Likewise, I'm hoping that knowing in advance that we'll plan to request the antibody infusion will streamline the paperwork on your end - which, I'm told, will be the step that follows Cherry's lab results. Thank you for your time; if possible, please give me a call with any time-sensitive instructions at [phone]; I won't have many chances to check MyChart in the near future, with a sick and a young baby to keep track of! Again, thank you very much. Sincerely, Jason Das MD 07/04/2021 1:55 PM Signed Form completed and ready to be faxed with test result. Florinda Alvarez Ma 07/04/2021 1:58 PM Signed Order faxed Patient notified Florinda Alvarez Ma Allergies As of Date: 07/03/2021 Noted Allergy Reaction ANIMAL DANDER 01/16/2016 3 - Cough Comments: Nasal congestion DUST 01/16/2016 14 - Other: See Comments Comments: Nasal congestion GRASS POLLEN 01/16/2016 3 - Cough Comments: Nasal congestion KARIVA (DESOGESTREL-ETHINYL ESTRA*04/27/2020 14 - Other: See Comments Comments: Mood swings, weight gain Date Reviewed: 05/16/2021 Reviewed by: Florinda Alvarez Ma - Fully Assessed Reason for Visit: Orders [681] Cmt: antibody infusion Prescriptions as of 07/04/2021 - fexofenadine (TIFFANY) 180 mg ORAL tablet Take one(1) tablet daily. Meds Comments as of 03/02/2007: All medications have been reviewed today /03/02/2007 Annika Mullins [employer] All medications have been reviewed today /03/02/2007 Annika Mullins [employer] Problem List As Of Date 07/03/2021 Noted Resolved Abdominal pain, unspecified site [R10.9] 06/20/2006 07/16/2017 Pain in joint, ankle and foot [M25.579] 12/12/2007 07/16/2017 History of anxiety [Z86.59] 03/29/2015 Seasonal allergies [J30.2] 05/16/2021 Screening for diabetes mellitus [Z13.1] 05/16/2021 Encounter for lipid screening for cardiovascula*2020 Encounter Status:Closed by FLORINDA ALVAREZ MA on 07/03/21 [facility] COVID w FLU A+B Routon 07-03 Influenza A PCR Negative Normal [facility] Comment on above: Performed By: #### L QUINTIN 3016-3, FT4 #### [facility] CLIA [id number] [address] [place] [address] [place] Influenza B PCR Negative Normal [facility] Comment on above: Performed By: #### L IPNF, 3016-3, FT4 #### [facility] CLIA [id number] [address] [place] [address] [place] SARS-CoV-2 (COVID-19) RNA VIJAY+probe Ql (Unsp spec) UPPER RESPIRATORY TRACT SWAB Normal [facility] Comment on above: Performed By: #### L QUINTIN, 3016-3, FT4 #### [facility] CLIA [id number] [address] [place] [address] [place] SARS-CoV-2 (COVID-19) RNA VIJAY+probe Ql (Unsp spec) Positive for COVID19 (SARS CoV2) by RT-PCR or equivalent method. Critically abnormal Negative for COVID19 (SARS CoV2) by RT-PCR or equivalent method. [facility] Comment on above: Result Comment: This test was developed and its performance characteristics determined by [facility]'s [facility] Pathology and Laboratory [facility] [place]. This test has been authorized by FDA under an Emergency Use Authorization (EUA). This test has been validated in accordance with the FDA's Guidance Document Policy for Diagnostics Testing in Laboratories Certified to Perform High Complexity Testing under CLIA prior to Emergency use Authorization for Coronavirus Disease 2019 during the Public Health Emergency issued on October 02, 2019. Test performed by [facility], [facility] Pathology and Laboratory Medicine [place], [address] [place] [address]. Performed By: #### L QUINTIN, 3016-3, FT4 #### [facility] CLIA [id number] [address] [place] [address] [place] Frank[place] 05-24-2021 YANELISN Telephone ([facility]) REA DAHL ( ) 1990 F Date Time Provider Department 05/24/21 BENSON DAS [facility] During your visit today, we recorded the following information about you: Benson Das MD 05/24/2021 12:14 PM Signed Let patient know recent labs ok except Trigs slightly elevated. This can be reduced by limiting fat in diet. Florinda Alvarez Ma 05/24/2021 12:23 PM Signed Patent was left detailed message Florinda Alvarez Ma Allergies As of Date: 05/24/2021 Noted Allergy Reaction ANIMAL DANDER 01/16/2016 3 - Cough Comments: Nasal congestion DUST 01/16/2016 14 - Other: See Comments Comments: Nasal congestion GRASS POLLEN 01/16/2016 3 - Cough Comments: Nasal congestion KARIVA (DESOGESTREL-ETHINYL ESTRA*04/27/2020 14 - Other: See Comments Comments: Mood swings, weight gain Date Reviewed: 05/16/2021 Reviewed by: Florinda Alvarez Ma - Fully Assessed Reason for Visit: Results [95] Prescriptions as of 05/24/2021 - fexofenadine (TIFFANY) 180 mg ORAL tablet Take one(1) tablet daily. Meds Comments as of 03/02/2007: All medications have been reviewed today /03/02/2007 Annika Mullins [employer] All medications have been reviewed today /03/02/2007 Annika Mullins [employer] Problem List As Of Date 05/24/2021 Noted Resolved Abdominal pain, unspecified site [R10.9] 06/20/2006 07/16/2017 Pain in joint, ankle and foot [M25.579] 12/12/2007 07/16/2017 History of anxiety [Z86.59] 03/29/2015 Seasonal allergies [J30.2] 05/16/2021 Screening for diabetes mellitus [Z13.1] 05/16/2021 Encounter for lipid screening for cardiovascula*2020 Encounter Status:Closed by FLORINDA ALVAREZ MA on 05/24/[address] [facility] Hemoglobin A1con 05-22-2021 Glucose [Mass/Vol] 97 mg/dL Normal [facility] Comment on above: Result Comment: eAG: (Estimated average glucose) is a calculated value from HgbA1c and is brewery representative of the average blood glucose level in the last 2-3 month period. Performed By: #### L IPNF, HBA1C #### [facility] [address] [id number] HbA1c (Bld) [Mass fraction] 5.0 % Normal 4.3-5.6 [facility] Comment on above: Result Comment: [facility] Diabetes Association guidelines indicate that patients with HgbA1c in the range 5.7-6.4% are at increased risk for development of diabetes, and intervention by lifestyle modification may be beneficial. HgbA1c greater or equal to 6.5% is considered diagnostic of diabetes. Performed By: #### L IPNF, HBA1C #### [facility] [address] [id number] Lipid Panel, Nonfaston 05-22 Cholesterol [Mass/Vol] 185 mg/dL Normal <200 [facility] Comment on above: Result Comment: <200 mg/dL, Desirable 200-239 mg/dL, Borderline high >239 mg/dL, High Performed By: #### L IPNF, HBA1C #### [place] [address] [place] [address] HDL Cholesterol, NF 45 mg/dL Normal >39 [facility] Comment on above: Result Comment: 40-5 9 mg/dL, Acceptable >59 mg/dL, High: Negative risk factor for coronary heart disease <40 mg/dL, Low: Positive risk factor for coronary heart disease Performed By: #### L IPNF, HBA1C #### [facility] [address] [place], [place] [address] LDL Cholesterol, NF 103 mg/dL High <100 [facility] Comment on above: Result Comment: <100 mg/dL, Optimal 100-129 mg/dL, Near optimal/above optimal 130-159 mg/dL, Borderline high 160-189 mg/dL, High >189 mg/dL, Very high Secondary prevention optimal LDL Cholesterol levels are recommended to be < 70 mg/dL Performed By: #### L IPNF, HBA1C #### [facility] [address] [address] LDL/HDL Ratio, NF 2.29 mg/dL Normal <2.54 [facility] Comment on above: Result Comment: Juan Luis westbrook: 1. National Cholesterol Education Program ATP III Guideline At-A-Glance Quick Desk Reference: National Heart, Lung, and Blood [place]. National Institutes of Health. 2001: NIH Publication No. 01-3305. 2. An International Atherosclerosis Society position paper: global recommendations for the management of dyslipidemia: executive summary, Atherosclerosis. 2014: 232(2):410-413. Performed By: #### L IPNF, HBA1C #### [facility] [address] [place] [phone] Non HDL Chol, NF 140 mg/dL High <130 [facility] Comment on above: Result Comment: <130 mg/dL, Optimal 130-159 mg/dL, Near optimal/above optimal 160-189 mg/dL, Borderline high 190-219 mg/dL, High >219 mg/dL, Very high Secondary prevention optimal non HDL Cholesterol levels are recommended to be < 100 mg/dL Performed By: #### L IPNF, HBA1C #### [facility] [address] [place] [phone] T Chol/HDL Ratio NF 4.11 mg/dL Normal <5.10 [facility] Comment on above: Performed By: #### L IPNF, HBA1C #### [facility] [employer] [address] [place] [phone] Triglycerides, NF 185 mg/dL High <150 [facility] Comment on above: Result Comment: <150 mg/dL, Normal 150-199 mg/dL, Borderline high 200-499 mg/dL, High >499 mg/dL, Very high Performed By: #### L IPNF, HBA1C #### [facility] [employer] [address] [place] [address] VLDL Cholesterol, NF 37 mg/dL High <[address] [facility] Comment on above: Performed By: #### L IPNF, HBA1C #### [facility] [address] [place], [place] [address] CNOVon 05-16-2021 CNOV Office Visit (FAMPWS) REA DAHL ([id number]) 1990 F Date Time Provider Department 05/16/21 5:00 PM [facility] During your visit today, we recorded the following information about you: Pulse Respiration Blood pressure Weight 78/minute 14/minute 122/84 105.7 kg Benson Das MD 05/16/2021 9:12 PM Signed Chief Complaint Patient presents with: Transition Of Care: [facility] HPI Rea Liam Nabila is a 30 year old female who presents here today for Above Complaints.. Patient has a past Hx of anxiety during a time when her mother had a subarachnoid hemorrhage and her father had been diagnosed with Parkinson's and Lewy Body disease. Patient never needed treatment and used bio feed back. Has been doing much better. and has a new born (mar 2021). Has a bump on the left side of her head she has had since she was a child. It got bigger near the end of Mar 2021 and then went back down. Past medical history, appointments, medications, allergies reviewed. Previous Medical History PAST MEDICAL HISTORY Diagnosis Date - Acne - History of anxiety 03/29/2015 - Postinflammatory hyperpigmentation - Seasonal allergies 05/16/2021 Seeing [place] [facility] - Sebaceous cyst Previous Surgical History PAST SURGICAL HISTORY Procedure Laterality Date - REMOVAL ADENOIDS,PRIMARY,<10 Y/O Adenoidectomy - REMOVAL OF TONSILS,<12 Y/O Tonsillectomy Family History FAMILY HISTORY Problem Relation Age of Onset - Coronary Artery Disease Paternal Grandmother - Coronary Artery Disease Maternal Grandmother - Alzheimer's Disease Maternal Grandmother Patient Allergies ALLERGIES Allergen Reactions - Animal Dander Cough Nasal congestion - Dust Other: See Comments Nasal congestion - Grass Pollen Cough Nasal congestion - Kariva [Desogestrel* Other: See Comments Mood swings, weight gain Current Medications Current Outpatient Medications on File Prior to Visit Medication Sig - MULTI-VITAMIN ORAL Take by mouth once daily. - CALCIUM CARBONATE (CALCIUM 500 ORAL) Take by mouth once daily. - fexofenadine (TIFFANY) 180 mg ORAL tablet Take one(1) tablet daily. No current facility-administere d medications on file prior to visit. Social History Social History Tobacco Use - Smoking status: Never Smoker - Smokeless tobacco: Never Used Substance Use Topics - Alcohol use: No - Drug use: No Review of Symptoms REVIEW OF SYSTEMS GENERAL: No weight loss, malaise or fevers NECK: Negative for lumps, goiter, pain and significant neck swelling RESPIRATORY: Negative for cough, hemoptysis, wheezing, COPD, dyspnea or shortness of breath CARDIOVASCULAR: Negative for chest pain, leg swelling, hypertension, CHF or palpitations GI: No nausea, vomiting, or diarrhea and No heartburn or reflux symptoms ENDOCRINE: Negative for cold or heat intolerance, polyuria, polydipsia and goiter NEURO: No history of headaches, syncope, paralysis, seizures or tremors Skin: see HPI EXAM: BP 122/84 Pulse 78 Resp 14 Wt 105.7 kg (233 lb) LMP 04/12/2020 (Approximate) BMI 33.43 kg/m? General Appearance: Well appearing, alert, in no acute distress, well-hydrated, well nourished.. Neck: Supple, no adenopathy; thyroid symmetric, normal size, no bruits. Lungs: Lungs clear to auscultation. No wheezing, rhonchi, rales.. Heart: RRR without murmur, gallop, or rubs. No ectopy. Abdomen: Normal abdominal exam, Abdomen soft, non-tender. Bowel sounds normal. No masses, organomegaly. Extremities: No deformities, edema, skin discoloration, Peripheral Pulses: Normal. Neurologic: Gait normal. Sensation to light touch intact.. Skin: Benign lesion on the left scalp. Health Maintenance List INFLUENZA(1) due on 06/18/2021 COVID-19 VACCINE(1) due on 05/16/2022 DEPRESSION SCREENING due on 05/15/2022 PAP TESTING due on 08/01/2025 HPV TESTING due on 08/01/2025 DTAP,TDAP,TD(8 - Td or Tdap) due on 01/07/2026 MENINGOCOCCAL CONJUGATE Completed HEPATITIS C SCREENING Discontinued HIV SCREENING Discontinued Data reviewed A/P ASSESSMENT/PLAN: 1. Encounter to establish care - ICD9: V65.8, ICD10: Z76.89 (primary diagnosis) - patient to continue working on healthy life style 2. Seasonal allergies - ICD9: 477.9, ICD10: J30.2 - cont f/u with ENT 3. Screening for diabetes mellitus - ICD9: V77.1, ICD10: Z13.1 Check - HGB A1C 4. Encounter for lipid screening for cardiovascular disease - ICD9: V77.91, V81.2, ICD10: Z13.220, Z13.6 Check - LIPID PANEL, NONFASTING F/u 6 months SELENA Das MD Referring Provider: SELF [200] Allergies As of Date: 05/16/2021 Noted Allergy Reaction ANIMAL DANDER 01/16/2016 3 - Cough Comments: Nasal congestion DUST 01/16/2016 14 - Other: See Comments Comments: Nasal congestion GRASS POLLEN 01/16/2016 3 - Cough Comments: Nasal congest (more content not included)... Normal [facility] Vital Signs Date Time Vital Sign Value Performing Clinician Taryn alicea 01-03-2025 09:54-0400 Body height 175.9 cm Oleksandr Katz MD Work Phone: [facility] 01-03-2025 09:54-0400 Body mass index (BMI) [Ratio] 38.1 kg/m2 Oleksandr Katz MD Work Phone: [facility] 01-03-2025 09:54-0400 Body weight 117.93 kg Oleksandr Katz MD Work Phone: [facility] 01-03-2025 09:54-0400 Diastolic blood pressure 78 mm[Hg] Oleksandr Katz MD Work Phone: [facility] 01-03-2025 09:54-0400 Systolic blood pressure 128 mm[Hg] Oleksandr Katz MD Work Phone: [facility] 12-20-2024 10:25-0400 Body height 175.9 cm Oleksandr Katz MD Work Phone: [facility] 12-20-2024 10:18-0400 Body mass index (BMI) [Ratio] 38.1 kg/m2 Oleksandr Katz MD Work Phone: [facility] 12-20-2024 10:18-0400 Body weight 117.19 kg Oleksandr Katz MD Work Phone: [phone] [place] [address] 12-20-2024 10:18-0400 Diastolic blood pressure 51 mm[Hg] Oleksandr Katz MD Work Phone: [phone] [place] [address] 12-20-2024 10:18-0400 Systolic blood pressure 110 mm[Hg] Oleksandr Katz MD Work Phone: [phone] [place] [address] 12-06-2024 09:45-0400 Body mass index (BMI) [Ratio] 37.5 kg/m2 Oleksandr Katz MD Work Phone: [phone])636-241765 [place] [address] 12-06-2024 09:45-0400 Body weight 116.11 kg Oleksandr Katz MD Work Phone: [phone] [place] [address] 12-06-2024 09:45-0400 Diastolic blood pressure 80 mm[Hg] Oleskandr Katz MD Work Phone: [phone])[phone] [place] [address] 12-06-2024 09:45-0400 Systolic blood pressure 123 mm[Hg] Oleksandr Katz MD Work Phone: [phone] [place] [address] 11-08-2024 10:13-0400 Body height 175.9 cm Oleksandr Katz MD Work Phone: [phone] [place] [address] 11-08-2024 10:10-0400 Body mass index (BMI) [Ratio] 37.1 kg/m2 Oleksandr Katz MD Work Phone: [phone])809-642365 [place] [address] 11-08-2024 10:10-0400 Body weight 114.87 kg Oleksandr Katz MD Work Phone: [phone])[phone] [place] [address] 11-08-2024 10:10-0400 Diastolic blood pressure 75 mm[Hg] Oleksandr Katz MD Work Phone: [facility] 11-08-2024 10:10-0400 Systolic blood pressure 123 mm[Hg] Oleksandr Katz MD Work Phone: [facility] 10-15-2024 11:02-0400 Body mass index (BMI) [Ratio] 36.1 kg/m2 Oleksandr Katz MD Work Phone: [facility] 10-15-2024 11:02-0400 Body weight 111.75 kg Oleksandr Katz MD Work Phone: [facility] 10-15-2024 11:02-0400 Diastolic blood pressure 76 mm[Hg] Oleksandr Katz MD Work Phone: [facility] 10-15-2024 11:02-0400 Systolic blood pressure 118 mm[Hg] Oleksandr Katz MD Work Phone: [facility] 09-23-2024 10:18-0500 Body mass index (BMI) [Ratio] 35.8 kg/m2 Oleksandr Katz MD Work Phone: [facility] 09-23-2024 10:18-0500 Body weight 110.9 kg Oleksandr Katz MD Work Phone: [facility] 09-23-2024 10:18-0500 Diastolic blood pressure 76 mm[Hg] Oleksandr Katz MD Work Phone: [facility] 09-23-2024 10:18-0500 Systolic blood pressure 112 mm[Hg] Oleksandr Katz MD Work Phone: [facility] 08-16-2024 11:22-0500 Body mass index (BMI) [Ratio] 36 kg/m2 Oleksandr Katz MD Work Phone: [facility] 08-16-2024 11:22-0500 Body weight 111.58 kg Oleksandr Katz MD Work Phone: [facility] 08-16-2024 11:22-0500 Diastolic blood pressure 79 mm[Hg] Oleksandr Katz MD Work Phone: [facility] 08-16-2024 11:22-0500 Systolic blood pressure 117 mm[Hg] Oleksandr Katz MD Work Phone: [facility] 05-15-2022 13:43-0400 Body temperature 98.1 [degF] Benson Das MD Work Phone: [facility] 05-15-2022 13:43-0400 Body weight 107.5 kg Benson Das MD Work Phone: [facility] 05-15-2022 13:43-0400 Diastolic blood pressure 80 mm[Hg] Benson Das MD Work Phone: [facility] 05-15-2022 13:43-0400 Heart rate 72 /min Benson Das MD Work Phone: [facility] 05-15-2022 13:43-0400 Respiratory rate 14 /min Benson Das MD Work Phone: [facility] 05-15-2022 13:43-0400 Systolic blood pressure 126 mm[Hg] Benson Das MD Work Phone: [facility] 11-14-2021 15:42-0400 Body height 170.2 cm Benson Das MD Work Phone: [facility] 11-14-2021 15:42-0400 Body weight 106.14 kg Benson Das MD Work Phone: [facility] 11-14-2021 15:42-0400 Diastolic blood pressure 70 mm[Hg] Benson Das MD Work Phone: [facility] 11-14-2021 15:42-0400 Heart rate 68 /min Benson Das MD Work Phone: [facility] 11-14-2021 15:42-0400 Respiratory rate 16 /min Benson Das MD Work Phone: [facility] 11-14-2021 15:42-0400 Systolic blood pressure 112 mm[Hg] Benson Das MD Work Phone: [facility] 07-04-2021 18:50-0500 Body temperature 98.6 [degF] [facility] Work Phone: 07-04-2021 18:50-0500 Diastolic blood pressure 83 mm[Hg] [facility] Work Phone: 07-04-2021 18:50-0500 Heart rate 85 /min [facility] Work Phone: 07-04-2021 18:50-0500 Respiratory rate 16 /min [facility] Work Phone: 07-04-2021 18:50-0500 SaO2% (BldA) [Mass fraction] 100 % [facility] Work Phone: 07-04-2021 18:50-0500 Systolic blood pressure 121 mm[Hg] [facility] Work Phone: 07-04-2021 17:33-0500 Body height 177.8 cm [facility] Work Phone: 07-04-2021 17:33-0500 Body mass index (BMI) [Ratio] 33 kg/m2 [facility] Work Phone: 07-04-2021 17:33-0500 Body weight 104.32 kg [facility] Work Phone: Encounters Encounter Date Encounter Type Care Provider Facility Start: 01-03-2025 End: 01-03-2025 Patient encounter procedure Marvin Garner CNM -[facility] Work Phone: Start: 01-03-2025 End: 01-03-2025 ambulatory Oleksandr Katz MD Work Phone: [facility] Work Phone: Start: 12-20-2024 End: 12-20-[address] Sally Cerna MD -[facility] Work Phone: Start: 12-20-2024 End: 12-20-2024 ambulatory Oleksandr Katz MD Work Phone: [facility] Work Phone: Start: 12-06-2024 End: 12-06-2024 Patient encounter procedure Radha WADE -[facility] Work Phone: Start: 12-06-2024 End: 12-06-2024 ambulatory Oleksandr Katz MD Work Phone: [facility] Work Phone: Start: 12-06-2024 End: 12-06-2024 ambulatory Jeaneth Kramer Facility:[facility] Start: 11-08-2024 End: 11-08-[address] Jeaneth Kramer DO -[facility] Work Phone: Start: 11-08-2024 End: 11-08-2024 ambulatory Oleksandr Katz Facility:[facility] Start: 10-15-2024 End: 10-15-2024 Patient encounter procedure Morenita Dickerson [facility] Work Phone: Start: 10-15-2024 End: 10-15-2024 ambulatory Morenita Dickerson Facility:[facility] Start: 09-30-2024 End: 09-30-2024 ambulatory CHRISTIANNE JUNE [facility] Start: 09-23-2024 End: 09-23-[address] Sally Cerna MD -[facility] Work Phone: Start: 09-23-2024 End: 09-23-2024 ambulatory Sally Cerna Facility:[facility] Start: 08-16-2024 End: 08-16-2024 Patient encounter procedure Marvin Garner [facility] -[facility] Work Phone: Start: 08-16-2024 End: 08-16-2024 ambulatory Oleksandr Katz Facility:[facility] Start: 08-16-2024 End: 08-16-2024 ambulatory Jeaneth Kramer Facility:[facility] Start: 07-19-2024 End: 07-19-2024 ambulatory Jeaneth Kramer Facility:[facility] Start: 07-19-2024 End: 07-19-2024 ambulatory Jeaneth Kramer Facility:[facility] Start: 07-09-2024 ambulatory Oleksandr Katz Facility:[facility] Start: 05-31-2023 End: 05-31-2023 ambulatory MD Oleksandr Katz Work Phone: [facility] Work Phone: Start: 05-31-2023 End: 05-31-2023 Patient encounter procedure MD Oleksandr Katz Work Phone: [facility] Work Phone: Start: 04-28-2023 Non-patient / Non-visit MD Chelsy Katz Work Phone: [facility] Start: 04-28-2023 End: 04-28-2023 Patient encounter procedure MD Oleksandr Katz Work Phone: [facility] Work Phone: Start: 04-12-2023 End: 04-12-[address] Benson Das Work Phone: [facility] Work Phone: Start: 04-12-2023 End: 04-12-[address] Benson Das Work Phone: [facility] Work Phone: Start: 01-16-2023 Non-patient / Non-visit Dr. Nico Das Work Phone: [facility] Work Phone: Start: 06-18-2022 End: 06-18-2022 ambulatory [facility] Work Phone: Start: 06-18-2022 End: 06-18-2022 Patient encounter procedure [facility], Specimen Start: 05-16-2022 Telephone encounter Benson Das MD Work Phone: [facility] [place] Comment on above: Results Start: 05-15-2022 End: 05-15-2022 Patient encounter procedure Benson Das MD Work Phone: [facility] Comment on above: Pharyngitis, unspeci fied etiology (Primary Dx); Fatigue, unspecified type Start: 12-12-2021 Telephone encounter Benson Das MD Work Phone: [facility] Comment on above: Results Start: 11-14-2021 End: 11-14-2021 Patient encounter procedure Benson Das MD Work Phone: [facility] Comment on above: Well adult exam (Rosa ludin Dx); Palpitations; History of anxiety; Screening for diabetes mellitus; Encounter for lipid screening for cardiovascular disease Start: 11-14-2021 End: 11-14-2021 Patient encounter status Benson Das MD Work Phone: [facility] Start: 07-04-2021 End: 07-04-2021 [facility] Start: 01-09-2018 [facility] Facility: [id number] Procedures Date Procedure Procedure Detail Performing Clinician Start: 12-06-2024 Serologic test for syphilis Oleksandr Katz MD Work Phone: Start: 08-16-2024 Procedure Oleksandr potts MD Work Phone: Start: 08-16-2024 Hepatitis B surface antigen measurement Oleksandr Katz MD Work Phone: Start: 08-16-2024 Hepatitis C antibody measurement Oleksandr Katz MD Work Phone: Comment on above: Non Reactive: < 0.8 Equivocal: >/= 0.8 to < 1.0 Reactive: >/= 1.0The CDC requires that a reactive/equivocal HCV antibody result be sent out for confirmation. HCV Quant by PCR testing. Start: 08-16-2024 Rubella IgG measurement Oleksandr Katz MD Work Phone: Comment on above: Antibody Results Int erpretation of Immune Status Non Reactive Presumed Non-Immune Equivocal Equivocal Reactive Presumed Immune Start: 04-12-[address] Benson Das Work Phone: Start: 05-15-2022 STREP A MOLECULAR (POC) Benson Das MD Work Phone: Start: 05-15-2021 Adult depression scr eening assessment Benson Das MD Work Phone: H/O: section Hx of cesa rean section Dr. Benson Das Work Phone: Comment on above: x1, 2020. didn't hav e epidural. 8 lbs. H/O: section History of delivery, currently Oleksandr Katz MD Work Phone: Comment on above: x1, desires but will do whatever is safest, open to RLTCS if recommendedwants to do plan for February 25 for repeat if no labor by then. 40 weeks 1 day)RLTCS scheduled for 02/25 @ 7:15 with JV H/O: section History of delivery, currently Dr. Sally Cerna MD H/O: section History of delivery, currently Morenita Dickerson CNM H/O: section History of delivery, currently Dr. 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 Sally Cerna MD H/O: section History of delivery, currently Marvin Garner CNM Plan of Treatment Date Care Activity Detail Author Start: 01-07-2026 Urine microalbumin profile DTAP,TDAP,TD (8 - Td or Tdap) [facility] Start: 08-01-2025 HPV TESTING HPV TESTING [facility] Start: 08-01-2025 PAP TESTING PAP TESTING [facility] Start: 02-25-2025 ambulatory Ambulatory Facility:[facility] Start: 05-16-2022 COVID-19 VACCINE (#1) COVID-19 VACCI NE (#1) [facility] Comment on above: Postponed from 10/08 (Declined at this time) Postponed from 04/10 (Declined at this time) Start: 05-16-2022 COVID-19 VACCINE (1) COVID-19 VACCIN E (1) [facility] Comment on above: Postponed from 10/08 (Declined at this time) Start: 05-15-2022 Adult depression screening assessment DEPRESSION SCREENING [facility] Start: 05-15-2022 End: 07-15-2022 CBC W Auto Differential panel - Blood [facility] Work Phone: Comment on above: Expected: 05/15/2022 , Expires: 07/15/2022 Start: 05-15-2022 End: 07-15-2022 Heterophile Ab [Presence] in Serum by Latex agglutination [facility] Work Phone: Comment on above: Expected: 05/15/2022 , Expires: 07/15/2022 Start: 05-15-2022 End: 07-15-2022 Thyrotropin [Units/volume] in Serum or Plasma [facility] Work Phone: Comment on above: Expected: 05/15/2022 , Expires: 07/15/2022 Start: 05-15-2022 End: 07-15-2022 Thyroxine (T4) free [Mass/volume] in Serum or Plasma [facility] Work Phone: Comment on above: Expected: 05/15/2022 , Expires: 07/15/2022 Start: 04-04-2022 Influenza vaccination [facility] Start: 11-14-2021 End: 01-14-2022 Hemoglobin A1c/Hemoglobin.total in Blood HGB A1C Lab Routine Well adult exam Screening for diabetes mellitus Expected: 11/14/2021, Expires: 01/14/2022 [facility] Work Phone: Comment on above: Expected: 11/14/2021 , Expires: 01/14/2022 Start: 11-14-2021 End: 01-14-2022 LIPID PANEL, NONFASTING LIPID PANEL, NONFASTING Lab Routine Well adult exam Encounter for lipid screening for cardiovascular disease Expected: 11/14/2021, Expires: 01/14/2022 [facility] Work Phone: Comment on above: Expected: 11/14/2021 , Expires: 01/14/2022 Start: 11-14-2021 End: 01-14-2022 T4 FREE/FREE THYROX T4 FREE/FREE THYROX Lab Routine Palpitations Expected: 11/14/2021, Expires: 01/14/2022 [facility] Work Phone: Comment on above: Expected: 11/14/2021 , Expires: 01/14/2022 Start: 11-14-2021 End: 01-14-2022 Thyrotropin [Units/volume] in Serum or Plasma TSH BLD Lab Routine Palpitations Expected: 11/14/2021, Expires: 01/14/2022 [facility] Work Phone: Comment on above: Expected: 11/14/2021 , Expires: 01/14/2022 Start: 08-04-2021 DEPRESSION ASSESSMENT DEPRESSION ASS ESSMENT [facility] Patient referral [facility] Work Phone: [facility] Immunizations Immunization Date Immunization Notes Care Provider Ochoa holder 12-20-2024 tetanus toxoid, redu yisel diphtheria toxoid, and acellular pertussis vaccine, adsorbed Oleksandr Katz MD Work Phone: [facility] 02-05-2021 tetanus toxoid, redu yisel diphtheria toxoid, and acellular pertussis vaccine, adsorbed [facility] 04-27-2020 influenza, injectabl e, quadrivalent, contains preservative Benson Das MD Work Phone: [facility] 06-15-2019 influenza, injectabl e, quadrivalent, contains preservative Benson Das MD Work Phone: [facility] 06-06-2018 influenza, injectabl e, quadrivalent, contains preservative Benson Das MD Work Phone: [facility] 05-26-2017 influenza, injectabl e, quadrivalent, contains preservative Benson Das MD Work Phone: [facility] Work Phone: 05-25-2016 influenza, injectabl e, quadrivalent, contains preservative Benson Das MD Work Phone: [facility] 01-08-2016 tetanus toxoid, redu yisel diphtheria toxoid, and acellular pertussis vaccine, adsorbed Benson Das MD Work Phone: [facility] Work Phone: 07-05-2015 influenza, injectabl e, quadrivalent, contains preservative Benson Das MD Work Phone: [facility] Work Phone: 06-01-2014 influenza, seasonal, injectable Benson Das MD Work Phone: [facility] 06-10-2013 influenza virus vaccine, unspecified formulation Benson Das MD Work Phone: [facility] 06-13-2012 influenza virus vaccine, unspecified formulation Benson Das MD Work Phone: [facility] 05-11-2011 influenza virus vaccine, unspecified formulation Benson Das MD Work Phone: [facility] 05-19-2010 influenza virus vaccine, unspecified formulation Benson Das MD Work Phone: [facility] Work Phone: 02-06-2007 human papilloma viru s vaccine, quadrivalent Benson Das MD Work Phone: [facility] Work Phone: 11-12-2006 Meningococcal, MCV4, unspecified conjugate formulation(groups A, C, Y and W-135) Benson Das MD Work Phone: [facility] Work Phone: 10-13-2006 human papilloma viru s vaccine, quadrivalent Benson Das MD Work Phone: [facility] Work Phone: 08-18-2006 human papilloma viru s vaccine, quadrivalent Benson Das MD Work Phone: [facility] Work Phone: 07-02-2006 influenza virus vaccine, unspecified formulation Benson Das MD Work Phone: [facility] Work Phone: 12-23-2005 diphtheria and tetan us toxoids, adsorbed for pediatric use Benson Das MD Work Phone: [facility] 06-11-2005 influenza virus vaccine, unspecified formulation Benson Das MD Work Phone: [facility] Work Phone: 07-24-2001 hepatitis B vaccine, pediatric or pediatric/adolescent dosage Benson Das MD Work Phone: [facility] Work Phone: 02-18-2001 hepatitis B vaccine, pediatric or pediatric/adolescent dosage Benson Das MD Work Phone: [facility] Work Phone: 01-19-2001 hepatitis B vaccine, pediatric or pediatric/adolescent dosage Benson Das MD Work Phone: [facility] Work Phone: 01-19-2001 measles, mumps and rubella virus vaccine Benson Das MD Work Phone: [facility] Work Phone: 10-17-1993 DTP-Haemophilus influenzae type b conjugate vaccine Benson Das MD Work Phone: [facility] Work Phone: 10-17-1993 poliovirus vaccine, inactivated Benson Das MD Work Phone: [facility] Work Phone: 05-30-1990 DTP-Haemophilus influenzae type b conjugate vaccine Benson Das MD Work Phone: [facility] Work Phone: 05-30-1990 poliovirus vaccine, inactivated Benson Das MD Work Phone: [facility] Work Phone: 01-15-1990 measles, mumps and rubella virus vaccine Benson Das MD Work Phone: [facility] Work Phone: 04-16-1989 DTP-Haemophilus influenzae type b conjugate vaccine Benson Das MD Work Phone: [facility] Work Phone: 04-16-1989 poliovirus vaccine, inactivated Benson Das MD Work Phone: [facility] Work Phone: 03-04-1989 DTP-Haemophilus influenzae type b conjugate vaccine Benson Das MD Work Phone: [facility] Work Phone: 03-04-1989 poliovirus vaccine, inactivated Benson Das MD Work Phone: [facility] Work Phone: 1988 DTP-Haemophilus influenzae type b conjugate vaccine Benson Das MD Work Phone: [facility] Work Phone: 1988 poliovirus vaccine, inactivated Benson Das MD Work Phone: [facility] Work Phone: Payers Date Payer Category Payer Medicaid [id number] 2024 Unknown [id number] 2024 Self-pay [id number] 2024 Unknown [id number] 2024 Unknown [id number] 2019 Unknown MMO MMO [employer] [id number] 2019-Present [phone] [address] [place] [address] PPO [id number] 2019 Unknown MMO MMO [employer] [id number] 2019-Present [phone] [address] [place] [address] PPO [id number] 1988 Unknown [id number] Unknown [id number] Unknown [id number] Unknown [id number] Unknown [id number] Unknown [id number] Unknown [id number] Unknown [id number] Unknown [id number] Unknown [id number] Unknown [id number] Unknown [id number] Unknown [id number] Unknown [id number] Unknown [id number] Unknown [id number] Unknown [id number] Social History Date Type Detail Facility Start: 07-04-2021 End: 09-12-2022 Tobacco smoking status IDIS Unknown if ever smoked [facility] Start: 1990 Sex Assigned At Female [facility] Start: 05-12-2022 End: 07-09-2024 Tobacco smoking status NHIS Never smoked tobacco [facility] Work Phone: Start: 11-14-2021 End: 05-15-2022 Alcohol intake Current non-drinker of alcohol (finding) [facility] Start: 05-15-2021 History SDOH Alcohol Frequency 2 [facility] Start: 05-15-2021 History SDOH Alcohol Std Drinks 1 [facility] Start: 05-15-2021 History SDOH Social Connections Phone 5 [facility] Start: 05-15-2021 History SDOH Social Connections [employer] 3 [facility] Start: 05-15-2021 History SDOH Physica l Activity MPS 4 [facility] Start: 04-25-2020 Education 17 [facility] Start: 11-04-2021 End: 05-15-2022 Exposure to SARS-CoV-2 (event) Not sure [facility] Start: 05-12-2022 Tobacco use and exposure Smoke less tobacco non-user [facility] Work Phone: Mental Status Date Assessment Result Facility 07-04-2021 Cognitive function Awake;Alert;A ppropriate;Fol lows Commands [facility] Work Phone: Clinical Notes 12-12-2007 to 01-03-2025 Note Date & Type Note Facility 01-03-2025 Progress note [facility] 12-20-2024 Progress note [facility] 09-23-2024 Evaluation note Diagnosis Onset Date Resolution AMA (advanced maternal age) multigravida 35+ acute September 052024 10:13am History of delivery, currently acute September 23 10:13am Irritable bowel syndrome acute September 23 10:13am Obesity affecting acute September 23 10:13am acute September 23, 2024 10:13am Rh negative status during acute September 23, 2024 10:13am Seasonal allergies acute 2024 10:13am Supervision of high-risk acute September 10:13am AMA (advanced maternal age) multigravida 35+ acute October 10:53am History of delivery, currently acute October 15, 2024 10:53am Irritable bowel syndrome acute October 15, 2024 10:53am Obesity affecting acute October 15, 2024 10:53am acute October 15 10:53am Rh negative status during acute October 15 10:53am Seasonal allergies acute October 15, 2024 10:53am Supervision of high-risk acute October 15, 2024 10:53am AMA (advanced maternal age) multigravida 35+ acute November 08, 2024 10:09am History of delivery, currently acute November 08, 2024 10:09am Irritable bowel syndrome acute November 08, 2024 10:09am Obesity affecting acute November 08, 2024 10:09am acute November 08 10:09am Rh negative status during acute November 08, 2024 10:09am Seasonal allergies acute November 08, 2024 10:09am Supervision of high-risk acute November 08 10:09am AMA (advanced maternal age) multigravida 35+ acute December 06 9:48am History of delivery, currently acute December 06, 2024 9: 48am Obesity affecting acute December 06, 2024 9: 48am acute December 06, 2024 9:48am Rh negative status during acute December 06, 2024 9 :48am Supervision of high-risk acute December 06 9:48am [facility] Work Phone: 1(771) 828-785202-20-2025 Evaluation note* Diagnosis Onset Date Resolution Status Admit Date AMA (advanced maternal age) multigravida 35+ acute September 23, 2024 10:13am History of delivery , currently acute September 10:13am Irritable bowel syndrome acute September 23, 2024 10:13am Obesity affecting acute September 23, 2024 10:13am acute September 23, 2024 10:13am Rh negative status during acute September 23 10:13am Seasonal allergies acute 2024 10:13am Supervision of high-risk acute September 23 10:13am AMA (advanced maternal age) multigravida 35+ acute October 15 10:53am History of delivery , currently acute October 15, 2 025 10:53am Irritable bowel syndrome acute October 15, 2024 10:53am Obesity affecting acute October 15, 2024 10:53am acute October 15 10:53am Rh negative status during acute October 15, 2024 10:53am Seasonal allergies acute October 15, 2024 10:53am Supervision of high-risk acute October 15, 2024 10:53am AMA (advanced maternal age) multigravida 35+ acute November 08, 2024 10:09am History of delivery , currently acute November 08 10:09am Irritable bowel syndrome acute November 08, 2024 10:09am Obesity affecting acute November 08, 2024 10:09am acute November 08 10:09am Rh negative status during acute November 08, 2024 10:09am Seasonal allergies acute November 08, 2024 10:09am Supervision of high-risk acute November 08, 2024 10:09am AMA (advanced maternal age) multigravida 35+ acute December 06, 2024 9 :48am History of delivery , currently acute December 06, 2024 9:48am Obesity affecting acute December 06, 2024 9:48am acute December 06, 2024 9:48am Rh negative status during acute December 06, 2024 9: 48am Supervision of high-risk acute December 06, 2024 9: 48am AMA (advanced maternal age) multigravida 35+ acute December 20, 2024 10:14am History of delivery , currently acute December 20 10:14am Irritable bowel syndrome acute December 20, 2024 10:14am Obesity affecting acute December 20, 2024 10:14am acute December 20, 2024 10:14am Rh negative status during acute December 20, 2024 1 0:14am Seasonal allergies acute December 202024 10:14am Supervision of high-risk acute December 20, 2024 1 0:14am [facility] Work Phone: 1(203) 529-703202-20-2025 Evaluation note* Diagnosis Onset Date Resolution Status Admit Date AMA (advanced maternal age) multigravida 35+ acute September 23, 2024 10:13am History of delivery , currently acute September 10:13am Irritable bowel syndrome acute September 23, 2024 10:13am Obesity affecting acute September 23, 2024 10:13am acute September 23, 2024 10:13am Rh negative status during acute September 23, 025 10:13am Seasonal allergies acute 2024 10:13am Supervision of high-risk acute September 23 10:13am AMA (advanced maternal age) multigravida 35+ acute October 15 10:53am History of delivery , currently acute October 15 025 10:53am Irritable bowel syndrome acute October 15, 2024 10:53am Obesity affecting acute October 15, 2024 10:53am acute October 15 10:53am Rh negative status during acute October 15, 2024 10:53am Seasonal allergies acute October 15, 2024 10:53am Supervision of high-risk acute October 15, 2024 10:53am AMA (advanced maternal age) multigravida 35+ acute November 08, 2024 10:09am History of delivery , currently acute November 08 10:09am Irritable bowel syndrome acute November 08, 2024 10:09am Obesity affecting acute November 08, 2024 10:09am acute November 08 10:09am Rh negative status during acute November 08, 2024 10:09am Seasonal allergies acute November 08, 2024 10:09am Supervision of high-risk acute November 08, 2024 10:09am AMA (advanced maternal age) multigravida 35+ acute December 06, 2024 9 :48am History of delivery , currently acute December 06, 2024 9:48am Obesity affecting acute December 06, 2024 9:48am acute December 06, 2024 9:48am Rh negative status during acute December 06, 2024 9: 48am Supervision of high-risk acute December 06, 2024 9: 48am AMA (advanced maternal age) multigravida 35+ acute December 20, 2024 10:14am History of delivery , currently acute December 20 10:14am Irritable bowel syndrome acute December 20, 2024 10:14am Obesity affecting acute December 20, 2024 10:14am acute December 20, 2024 10:14am Rh negative status during acute December 20, 2024 1 0:14am Seasonal allergies acute December 202024 10:14am Supervision of high-risk acute December 20, 2024 1 0:14am AMA (advanced maternal age) multigravida 35+ acute January 03, 2025 9:50am History of delivery , currently acute January 03 9:50am Irritable bowel syndrome acute January 03, 2025 9:50am Obesity affecting acute January 03, 2025 9:50am acute January 03, 2025 9:50am Rh negative status during acute January 03, 2025 9 :50am Seasonal allergies acute January 032024 9:50am Supervision of high-risk acute January 03, 2025 9 :50am [facility] Work Phone: 1(136) 112-802311-15-2022 NotePap Smear Specimen AdequacyNovember 2021 3:57pmComment.Satisfactory for evaluation. Endocervical and/or squamous metaplasticcells (endocervical component)are present.[facility][id number] Work Phone: Comment on above:Satisfactory for evaluation. Endocervical and/or squamous metaplasticcells (endocervical component)are present.05-16-2022 Miscellaneous Notes* Telephone Encounter - Mary Jane Schneider LPN - 05/16/2022 4:09 PM EDT Patient notified. Verbalized understanding. * Telephone Encounter - Benson Das MD - 05/16/2022 3:36 PM EDT Let patient know the mono test was negative. The thyroid labs and CBC were normal. documented in this encounterUniversity [facility]als [facility]10-12-2022 History of Present illness Narrative* Benson Das MD - 05/15/2022 1:40 PM EDT Chief Complaint Patient presents with: Fatigue HPI Rea Dahl is a 31 year old female who presents here today for follow up from [facility]. Patient was seen in the [facility] on 05/12/2022 with c/o congestion, facial pressure, non-productive cough, and sore throat for the past 24 hrs. No fever. Her strep was negative and COVID PCR was negative. Patient no longer has a cough. Still getting drainage down the back of her throat and feels her sore throat is worse. No fevers, chills, nausea, vomiting or diarrhea. No shortness of breath or wheezing. Some sinus pressure. Feels fatigued. Has a 13 month old that was recently ill. Patient denies any symptoms of depression since the delivery of her child. Gets up 1-3 times a night to breast feed. Past medical history, appointments, medications, allergies reviewed. Previous Medical History PAST MEDICAL HISTORY Diagnosis Date Acne History of anxiety 03/29/2015 Postinflammatory hyperpigmentation Seasonal allergies 05/16/2021 Seeing [facility] Sebaceous cyst Previous Surgical History PAST SURGICAL HISTORY Procedure Laterality Date ADENOIDECTOMY PRIMARY <AGE 10 Adenoidectomy TONSILLECTOMY PRIMARY/SECONDARY <AGE 10 Tonsillectomy Family History FAMILY HISTORY Problem Relation Age of Onset Coronary Artery Disease Paternal Grandmother Coronary Artery Disease Maternal Grandmother Alzheimer's Disease Maternal Grandmother Patient Allergies ALLERGIES Allergen Reactions Animal Dander Cough Nasal congestion Dust Other: See Comments Nasal congestion Grass Pollen Cough Nasal congestion Kariva [Desogestrel* Other: See Comments Mood swings, weight gain Current Medications Current Outpatient Medications on File Prior to Visit Medication Sig predniSONE (DELTASONE) 20 mg tablet Take 2 tablets by mouth once daily for 5 days. vit/iron fum/folic ac (-FOLIC ACID ORAL) Take by mouth once daily. (Patient not taking: Reported on 05/12/2022) fexofenadine (TIFFANY) 180 mg ORAL tablet Take one(1) tablet daily. No current facility-administered medications on file prior to visit. Social History Social History Tobacco Use Smoking status: Never Smokeless tobacco: Never Substance Use Topics Alcohol use: No Drug use: No Review of Symptoms REVIEW OF SYSTEMS See HPI EXAM: BP 126/80 (BP Site: Left Arm, BP Position: Sitting, BP Cuff Size: Large Adult) Pulse 72 Temp 36.7 C (98.1 F) (Tympanic) Resp 14 Wt 107.5 kg (237 lb) LMP 10/02/2021 BMI 37.12 kg/m General Appearance: Well appearing, alert, in no acute distress, well-hydrated, well nourished.. Ears: External ears normal, canals clear. Nose/Sinuses: Nares normal, septum midline, mucosa normal, no drainage or sinus tenderness. Oropharynx: Lips, mucosa, and tongue normal, teeth and gums normal, oropharynx was erythematous Neck: Supple, no adenopathy; thyroid symmetric, normal size, no bruits. Lungs: Lungs clear to auscultation. No wheezing, rhonchi, rales.. Heart: RRR without murmur, gallop, or rubs. No ectopy. Abdomen: Normal abdominal exam, Abdomen soft, non-tender. Bowel sounds normal. No masses, organomegaly. Health Maintenance List DEPRESSION ASSESSMENT Never done INFLUENZA(1) due on 04/04/2022 COVID-19 VACCINE(1) due on 05/16/2022 PAP TESTING due on 08/01/2025 HPV TESTING due on 08/01/2025 DTAP,TDAP,TD(8 - Td or Tdap) due on 01/07/2026 HEPATITIS B Completed HEPATITIS C SCREENING Discontinued HIV SCREENING Discontinued Data reviewed A/P ASSESSMENT/PLAN: 1. Pharyngitis, unspecified etiology - ICD9: 462, ICD10: J02.9 (primary diagnosis) - suspect viral - Rapid Strep negative in the office today - Discussed supportive care treatment with fluids, rest and analgesia. - The patient may also use warm salt water gargles, throat lozenges and/or OTC throat spray as needed. - Contagious dz precautions discussed- including considered contagious until on antibiotics for 24 hours 2. Fatigue, unspecified type - ICD9: 780.79, ICD10: R53.83 Check - TSH BLD - CBC + DIFF - T4 FREE/FREE THYROX - MONOTEST, INFECTIOUS MONO Patient requested a off work note for her to be able to take of work and take care of her. This was declined. F/u if not improving. Benson Das MD documented in this encounterUniversity Hospitals [facility]05-13-2022 NoteHNO ID: [id number] Author: Carmela Sun APRN.[employer] Service: ? Author Type: Nurse Practitioner Type: Progress Notes Filed: 12/14/2021 6:57 PM Note Text: Subjective HPI HPI Rea Dahl is a 31 year old female who presents today for CC of left arm itchy rash. This started 1 day ago. Has tried otc medication for relief. Symptoms are worsened by nothing. Risk factors hx of bad reaction to PI. Denies fever. .Patient presents with: Rash: itching, left arm x 1 days- PAST MEDICAL HISTORY Diagnosis Date - Acne - History of anxiety 03/29/2015 - Postinflammatory hyperpigmentation - Seasonal allergies 05/16/2021 Seeing [facility] - Sebaceous cyst PAST SURGICAL HISTORY Procedure Laterality Date - ADENOIDECTOMY PRIMARY Adenoidectomy - TONSILLECTOMY PRIMARY/SECONDARY Tonsillectomy ALLERGIES Animal Dander, Dust, Grass Pollen, and Kariva [Desogestrel-Ethinyl Estradiol] MEDICATIONS vit/iron fum/folic ac (-FOLIC ACID ORAL) Take by mouth once daily. fexofenadine (TIFFANY) 180 mg ORAL tablet Take one(1) tablet daily. triamcinolone acetonide (KENALOG) 0.1 % cream Apply 1 application to affected area three times daily for 10 days. Apply sparingly to area for rash/itching. FAMILY HISTORY Problem Relation Age of Onset - Coronary Artery Disease Paternal Grandmother - Coronary Artery Disease Maternal Grandmother - Alzheimer's Disease Maternal Grandmother Social History Tobacco Use - Smoking status: Never Smoker - Smokeless tobacco: Never Used Substance Use Topics - Alcohol use: No - Drug use: No Review of Systems Constitutional: Negative for chills and fever. Skin: Positive for itching and rash ( ). Objective Blood pressure 122/70, pulse 82, temperature 36.9 ?C (98.5 ?F), resp. rate 16, weight 107 kg (236 lb), last menstrual period 10/02/2021, SpO2 98 %. Physical Exam Constitutional: General: She is not in acute distress. Appearance: She is not toxic-appearing or diaphoretic. HENT: Head: Normocephalic and atraumatic. Skin: General: Skin is warm and dry. Findings: Rash present. Rash is vesicular (distribution linear ). Neurological: Mental Status: She is alert and oriented to person, place, and time. ASSESSMENT/PLAN: 1. Rhus dermatitis - ICD9: 692.6, ICD10: L25.5 - Topical steriod tx with Rx for steriod cream/ointment- see orders - discussed skin care of rash - follow up if symptoms persist or worsen. - TRIAMCINOLONE ACETONIDE 0.1 % TOPICAL CREAM Agrees to plan Carmela Sun APRN.[facility]05-11-2022 Miscellaneous Notes * Telephone Encounter - Carla Valverde LPN - 12/12/2021 12:47 PM EDT Left message of results and instructions on pt's identified vm. Carla Valverde LPN * Telephone Encounter - Benson Das MD - 12/12/2021 12:14 PM EDT Let patient know her sugar test and thyroid labs were ok. Her lipid panel was ok except her Trigs were slightly elevated at 160 (goa<150) Advise trying toreduce fat in diet. documented in this encounterUniversity Hospitals [facility]04-13-2022 NoteHNO ID: [id number] Author: Benson Das MD Service: ? Author Type: Physician Type: Progress Notes Filed: 11/14/2021 4:36 PM Note Text: Chief Complaint Patient presents with: 6 Month Exam: patient is here for 6 month physical HPI Rea Dahl is a 31 year old female who presents here today for Establish care. Patient has a past Hx of anxiety during a time when her mother had a subarachnoid hemorrhage and her father had been diagnosed with Parkinson's and Lewy Body disease. Patient never needed treatment and used bio feed back. Has been doing much better. Concerns: Patient had covid in Jun/Jul and she has noticed a fluttering/tightness when she is having anxiety. No chest pain, shortness of breath, lightheadedness of dizziness. Working on meditation more. This has helped and has not had fluttering in a week. Also drainage but she feels this is from seasonal allergies. She is currently breast feeding. Past medical history, appointments, medications, allergies reviewed. Previous Medical History PAST MEDICAL HISTORY Diagnosis Date - Acne - History of anxiety 03/29/2015 - Postinflammatory hyperpigmentation - Seasonal allergies 05/16/2021 Seeing [facility] - Sebaceous cyst Previous Surgical History PAST SURGICAL HISTORY Procedure Laterality Date - REMOVAL ADENOIDS,PRIMARY,<12 Y/O Adenoidectomy - REMOVAL OF TONSILS,<12 Y/O Tonsillectomy Family History FAMILY HISTORY Problem Relation Age of Onset - Coronary Artery Disease Paternal Grandmother - Coronary Artery Disease Maternal Grandmother - Alzheimer's Disease Maternal Grandmother Patient Allergies ALLERGIES Allergen Reactions - Animal Dander Cough Nasal congestion - Dust Other: See Comments Nasal congestion - Grass Pollen Cough Nasal congestion - Kariva [Desogestrel* Other: See Comments Mood swings, weight gain Current Medications Current Outpatient Medications on File Prior to Visit Medication Sig - fexofenadine (TIFFANY) 180 mg ORAL tablet Take one(1) tablet daily. No current facility-administered medications on file prior to visit. Social History Social History Tobacco Use - Smoking status: Never Smoker - Smokeless tobacco: Never Used Substance Use Topics - Alcohol use: No - Drug use: No Review of Symptoms REVIEW OF SYSTEMS GENERAL: No weight loss, malaise or fevers HEENT: Negative for frequent or significant headaches, No changes in hearing or vision, no nose bleeds or other nasal problems. Just her allergies. NECK: Negative for lumps, goiter, pain and significant neck swelling RESPIRATORY: Negative for cough, hemoptysis, wheezing, COPD, dyspnea or shortness of breath CARDIOVASCULAR: Negative for chest pain, leg swelling, hypertension, CHF. see HPI GI: No nausea, vomiting, or diarrhea and No heartburn or reflux symptoms : No history of dysuria, frequency or incontinence MUSCULOSKELETAL: Negative for joint pain or swelling, back pain or muscle pain SKIN: Negative for lesions, rash, and itching PSYCH: See HPI HEMATOLOGY/LYMPHOLOGY: Negative for prolonged bleeding, bruising easily or swollen nodes ENDOCRINE: Negative for cold or heat intolerance, polyuria, polydipsia and goiter NEURO: No history of headaches, syncope, paralysis, seizures or tremors EXAM: BP 112/70 (BP Site: Left Arm, BP Position: Sitting, BP Cuff Size: Large Adult) Pulse 68 Resp 16 Ht 170.2 cm (5' 7) Wt 106.1 kg (234 lb) LMP 10/02/2021 BMI 36.65 kg/m? Last 5 Encounter Wt Readings: Date: Wt: 11/14/2021 106.1 kg (234 lb) 05/16/2021 105.7 kg (233 lb) 04/27/2020 99.3 kg (219 lb) 07/16/2017 99.8 kg (220 lb) 01/16/2016 98.4 kg (217 lb) General Appearance: Well appearing, alert, in no acute distress, well-hydrated, well nourished.. Skin: Skin color, texture, turgor normal, no suspicious rashes or lesions. Head: Normocephalic, no masses, lesions, tenderness or abnormalities. Eyes: Anicteric sclera. Pupils are equally round and reactive to light. Extraocular movements are intact. . Ears: External ears, TM's normal, canals clear. Nose/Sinuses: Nares normal, septum midline, mucosa normal, no drainage or sinus tenderness. Lungs: Lungs clear to auscultation. No wheezing, rhonchi, rales.. Heart: RRR without murmur, gallop, or rubs. No ectopy. Abdomen: Normal abdominal exam, Abdomen soft, non-tender. Bowel sounds normal. No masses, organomegaly. Extremities: No deformities, edema, skin discoloration, clubbing or cyanosis. . Musculoskeletal: Spine range of motion normal. Muscular strength intact, No joint swelling, deformity, or tenderness. Peripheral Pulses: Normal. Neurologic: Gait normal. Reflexes normal and symmetric. Sensation to light touch and crainal nerves 2-12 intact.. Health Maintenance List COVID-19 VACCINE(1) due on 05/16/2022 INFLUENZA(Season Ended) due on 04/04/2022 DEPRESSION SCREENING due on 05/15/2022 PAP TESTI (more content not included)...[facility]04-13-2022 History of Present illness Narrative* Benson Das MD - 11/14/2021 3:20 PM EDT Chief Complaint Patient presents with: 6 Month Exam: patient is here for 6 month physical HPI Rea Dahl is a 31 year old female who presents here today for Establish care. Patient has a past Hx of anxiety during a time when her mother had a subarachnoid hemorrhage and her father had been diagnosed with Parkinson's and Lewy Body disease. Patient never needed treatment and used bio feed back. Has been doing much better. Concerns: Patient had covid in Jun/Jul and she has noticed a fluttering/tightness when she is having anxiety. No chest pain, shortness of breath, lightheadedness of dizziness. Working on meditation more. This has helped and has not had fluttering in a week. Also drainage but she feels this is from seasonal allergies. She is currently breast feeding. Past medical history, appointments, medications, allergies reviewed. Previous Medical History PAST MEDICAL HISTORY Diagnosis Date Acne History of anxiety 03/29/2015 Postinflammatory hyperpigmentation Seasonal allergies 05/16/2021 Seeing [facility] Sebaceous cyst Previous Surgical History PAST SURGICAL HISTORY Procedure Laterality Date REMOVAL ADENOIDS,PRIMARY,<12 Y/O Adenoidectomy REMOVAL OF TONSILS,<12 Y/O Tonsillectomy Family History FAMILY HISTORY Problem Relation Age of Onset Coronary Artery Disease Paternal Grandmother Coronary Artery Disease Maternal Grandmother Alzheimer's Disease Maternal Grandmother Patient Allergies ALLERGIES Allergen Reactions Animal Dander Cough Nasal congestion Dust Other: See Comments Nasal congestion Grass Pollen Cough Nasal congestion Kariva [Desogestrel* Other: See Comments Mood swings, weight gain Current Medications Current Outpatient Medications on File Prior to Visit Medication Sig fexofenadine (TIFFANY) 180 mg ORAL tablet Take one(1) tablet daily. No current facility-administered medications on file prior to visit. Social History Social History Tobacco Use Smoking status: Never Smoker Smokeless tobacco: Never Used Substance Use Topics Alcohol use: No Drug use: No Review of Symptoms REVIEW OF SYSTEMS GENERAL: No weight loss, malaise or fevers HEENT: Negative for frequent or significant headaches, No changes in hearing or vision, no nose bleeds or other nasal problems. Just her allergies. NECK: Negative for lumps, goiter, pain and significant neck swelling RESPIRATORY: Negative for cough, hemoptysis, wheezing, COPD, dyspnea or shortness of breath CARDIOVASCULAR: Negative for chest pain, leg swelling, hypertension, CHF. see HPI GI: No nausea, vomiting, or diarrhea and No heartburn or reflux symptoms : No history of dysuria, frequency or incontinence MUSCULOSKELETAL: Negative for joint pain or swelling, back pain or muscle pain SKIN: Negative for lesions, rash, and itching PSYCH: See HPI HEMATOLOGY/LYMPHOLOGY: Negative for prolonged bleeding, bruising easily or swollen nodes ENDOCRINE: Negative for cold or heat intolerance, polyuria, polydipsia and goiter NEURO: No history of headaches, syncope, paralysis, seizures or tremors EXAM: BP 112/70 (BP Site: Left Arm, BP Position: Sitting, BP Cuff Size: Large Adult) Pulse 68 Resp 16 Ht 170.2 cm (5' 7) Wt 106.1 kg (234 lb) LMP 10/02/2021 BMI 36.65 kg/m Last 5 Encounter Wt Readings: Date: Wt: 11/14/2021 106.1 kg (234 lb) 05/16/2021 105.7 kg (233 lb) 04/27/2020 99.3 kg (219 lb) 07/16/2017 99.8 kg (220 lb) 01/16/2016 98.4 kg (217 lb) General Appearance: Well appearing, alert, in no acute distress, well-hydrated, well nourished.. Skin: Skin color, texture, turgor normal, no suspicious rashes or lesions. Head: Normocephalic, no masses, lesions, tenderness or abnormalities. Eyes: Anicteric sclera. Pupils are equally round and reactive to light. Extraocular movements are intact. . Ears: External ears, TM's normal, canals clear. Nose/Sinuses: Nares normal, septum midline, mucosa normal, no drainage or sinus tenderness. Lungs: Lungs clear to auscultation. No wheezing, rhonchi, rales.. Heart: RRR without murmur, gallop, or rubs. No ectopy. Abdomen: Normal abdominal exam, Abdomen soft, non-tender. Bowel sounds normal. No masses, organomegaly. Extremities: No deformities, edema, skin discoloration, clubbing or cyanosis. . Musculoskeletal: Spine range of motion normal. Muscular strength intact, No joint swelling, deformity, or tenderness. Peripheral Pulses: Normal. Neurologic: Gait normal. Reflexes normal and symmetric. Sensation to light touch and crainal nerves2-12 intact.. Health Maintenance List COVID-19 VACCINE(1) due on 05/16/2022 INFLUENZA(Season Ended) due on 04/04/2022 DEPRESSION SCREENING due on 05/15/2022 PAP TESTING due on 08/01/2025 HPV TESTING due on 08/01/2025 DTAP,TDAP,TD(8 - Td or Tdap) due on 01/07/2026 MENINGOCOCCAL CONJUGATE Completed HEPATITIS C SCREENING Discontinued HIV SCREENING Discontinued Data reviewed A/P ASSESSMENT/PLAN: 1. Well adult exam - ICD9: V70.0, ICD10: Z00.00 (primary diagnosis) - Counseled on healthy diet and regular exercise - Calcium intake with supplements or by diet of 1000 mg/day for under 50, 1200- 1500 mg/day for 50+ - Follow up for annual exam in one year 2. Palpitations - ICD9: 785.1, ICD10: R00.2 - Seems to be less often since doing some biofeedback back techniques. - If increases patient to let me know and will get event monitor. Will check TSH and Free T4 3. History of anxiety - ICD9: V11.8, ICD10: Z86.59 - Cont the biofeedback. Patient not wanting meds at this time. 4. Screening for diabetes mellitus - ICD9: V77.1, ICD10: Z13.1 - Check A1c 5. Encounter for lipid screening for cardiovascular disease - ICD9: V77.91, V81.2, ICD10: Z13.220, Z13.6 - Check Lipid. F/u in 4 in a year for WAE or sooner if issues. Benson Das MD documented in this encounterUniversity Hospitals [facility] Center10-13-2021 NoteHNO ID: [id number] Author: Benson Das MD Service: ? Author Type: Physician Type: Progress Notes Filed: 05/16/2021 9:12 PM Note Text: Chief Complaint Patient presents with: Transition Of Care: [facility] HPI Rea Dahl is a 30 year old female who presents here today for Above Complaints.. Patient has a past Hx of anxiety during a time when her mother had a subarachnoid hemorrhage and her father had been diagnosed with Parkinson's and Lewy Body disease. Patient never needed treatment and used bio feed back. Has been doing much better. and has a new born (mar 2021). Has a bump on the left side of her head she has had since she was a child. It got bigger near the end of Mar 2021 and then went back down. Past medical history, appointments, medications, allergies reviewed. Previous Medical History PAST MEDICAL HISTORY Diagnosis Date - Acne - History of anxiety 03/29/2015 - Postinflammatory hyperpigmentation - Seasonal allergies 05/16/2021 Seeing [facility] - Sebaceous cyst Previous Surgical History PAST SURGICAL HISTORY Procedure Laterality Date - REMOVAL ADENOIDS,PRIMARY,<12 Y/O Adenoidectomy - REMOVAL OF TONSILS,<12 Y/O Tonsillectomy Family History FAMILY HISTORY Problem Relation Age of Onset - Coronary Artery Disease Paternal Grandmother - Coronary Artery Disease Maternal Grandmother - Alzheimer's Disease Maternal Grandmother Patient Allergies ALLERGIES Allergen Reactions - Animal Dander Cough Nasal congestion - Dust Other: See Comments Nasal congestion - Grass Pollen Cough Nasal congestion - Kariva [Desogestrel* Other: See Comments Mood swings, weight gain Current Medications Current Outpatient Medications on File Prior to Visit Medication Sig - MULTI-VITAMIN ORAL Take by mouth once daily. - CALCIUM CARBONATE (CALCIUM 500 ORAL) Take by mouth once daily. - fexofenadine (TIFFANY) 180 mg ORAL tablet Take one(1) tablet daily. No current facility-administered medications on file prior to visit. Social History Social History Tobacco Use - Smoking status: Never Smoker - Smokeless tobacco: Never Used Substance Use Topics - Alcohol use: No - Drug use: No Review of Symptoms REVIEW OF SYSTEMS GENERAL: No weight loss, malaise or fevers NECK: Negative for lumps, goiter, pain and significant neck swelling RESPIRATORY: Negative for cough, hemoptysis, wheezing, COPD, dyspnea or shortness of breath CARDIOVASCULAR: Negative for chest pain, leg swelling, hypertension, CHF or palpitations GI: No nausea, vomiting, or diarrhea and No heartburn or reflux symptoms ENDOCRINE: Negative for cold or heat intolerance, polyuria, polydipsia and goiter NEURO: No history of headaches, syncope, paralysis, seizures or tremors Skin: see HPI EXAM: BP 122/84 Pulse 78 Resp 14 Wt 105.7 kg (233 lb) LMP 04/12/2020 (Approximate) BMI 33.43 kg/m? General Appearance: Well appearing, alert, in no acute distress, well-hydrated, well nourished.. Neck: Supple, no adenopathy; thyroid symmetric, normal size, no bruits. Lungs: Lungs clear to auscultation. No wheezing, rhonchi, rales.. Heart: RRR without murmur, gallop, or rubs. No ectopy. Abdomen: Normal abdominal exam, Abdomen soft, non-tender. Bowel sounds normal. No masses, organomegaly. Extremities: No deformities, edema, skin discoloration, Peripheral Pulses: Normal. Neurologic: Gait normal. Sensation to light touch intact.. Skin: Benign lesion on the left scalp. Health Maintenance List INFLUENZA(1) due on 06/18/2021 COVID-19 VACCINE(1) due on 05/16/2022 DEPRESSION SCREENING due on 05/15/2022 PAP TESTING due on 08/01/2025 HPV TESTING due on 08/01/2025 DTAP,TDAP,TD(8 - Td or Tdap) due on 01/07/2026 MENINGOCOCCAL CONJUGATE Completed HEPATITIS C SCREENING Discontinued HIV SCREENING Discontinued Data reviewed A/P ASSESSMENT/PLAN: 1. Encounter to establish care - ICD9: V65.8, ICD10: Z76.89 (primary diagnosis) - patient to continue working on healthy life style 2. Seasonal allergies - ICD9: 477.9, ICD10: J30.2 - cont f/u with ENT 3. Screening for diabetes mellitus - ICD9: V77.1, ICD10: Z13.1 Check - HGB A1C 4. Encounter for lipid screening for cardiovascular disease - ICD9: V77.91, V81.2, ICD10: Z13.220, Z13.6 Check - LIPID PANEL, NONFASTING F/u 6 months SELENA Das, [facility]05-10-2008 History of Past illness Narrative* Problem Noted Date Resolved Date Pain in joint, ankle and foot 12/12/2007 Abdominal pain, unspecified site 06/20/2006 07/16/2017 documented as of this encounter (statuses as of 11/14/2021) [place] [address]-10-2008 History of Past illness Narrative* Problem Noted Date Resolved Date Pain in joint, ankle and foot 12/12/2007 Abdominal pain, unspecified site 06/20/2006 07/16/2017 documented as of this encounter (statuses as of 12/12/2021) [facility]05-10-2008 History of Past illness Narrative* Problem Noted Date Resolved Date Pain in joint, ankle and foot 12/12/2007 Abdominal pain, unspecified site 06/20/2006 07/16/2017 documented as of this encounter (statuses as of 05/15/2022) [facility]05-10-2008 History of Past illness Narrative* Problem Noted Date Resolved Date Pain in joint, ankle and foot 12/12/2007 Abdominal pain, unspecified site 06/20/2006 07/16/2017 documented as of this encounter (statuses as of 05/16/2022) [facility] noteNo assessment information availableWSelect Medical [facility] Work Phone: Evaluation note* Diagnosis Well adult exam- Primary Routine general medical examination at a health care facility Palpitations History of anxiety Personal history of other mental disorder Screening for diabetes mellitus Encounter for lipid screening for cardiovascular disease Screening for lipoid disorders documented in this encounter [facility]* Diagnosis Pharyngitis, unspecified etiology- Primary Fatigue, unspecified type documented in this encounter [facility] note Author Sally Cerna [facility] Note Date/Time December 20, 2024 10:32 am [facility] [address] [place] [address], [address] [place] [address] OFFICE VISIT Date of Service: 12/20/24 MR#: [id number] Acct: [id number] Name: REA DAHL Rep #: [id number] : 1990 Provider: Dr. 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 Required: No Is patient in pain?: No Allergies spironolactone Allergy (Mild, Verified 12/20/24 10:18) Dizzyness Food Allergies: Uncoded Allergy (Verified 12/20/24 10:18) Abd cramps/diarrhea Seasonal Allergies: Uncoded (environmental) Allergy (Verified 12/20/24 10:18) NEEDS FOLLOW-UP Medications 3 ?Medication ?Instructions ?Recorded ?Confirmed ?Type Prenatabs FA 1 tab PO/SL DAILY 03/26/21 12/20/24 History cholecalciferol (vitamin D3) 25 25 mcg PO DAILY 12/20/24 History mcg (1,000 unit) capsule vitamin C 30 mg-zinc citrate 1.1 tab PO 01/16/2312/20 History mg-elderberry 25 mg chewable tablet (Sambucus Elderberry) Last Menstrual Period: 05/20/24 Zika: Zika virus screening: Negative : No PFSH PFSH Medical History Hx of ovarian cyst Irritable bowel syndrome Gastrointestinal problem Seasonal allergies Surgical History Hx of section History of surgery Family History Mother Anxiety Asthma Arthritis Grandfather Asthma Arthritis CVA (cerebral vascular accident) Grandfather Diabetes Myocardial infarction Father Melanoma Parkinsons Lewy body dementia Grandmother Alzheimers disease Aunt Alzheimers disease Other Mental disorder Social History adopted: No household members: spouse, family and children number of children: 1 current occupational status: unemployed current occupation: [employer] current occupational exposures/hazards: No pets and animals: Yes ( taking care litter box ) pets and animals: cat(s) and dog(s) history of recent travel: Yes ([place] in July 2024) out of state: Yes out of country: No sexually active: Yes Smoking Status: Never smoker alcohol intake: current alcohol intake frequency: holidays/special occasions only details: Not while substance use type: does not use well-balanced diet: daily or most days caffeine: Yes Type: coffee eating out: 1-3 times/week what type of physical activity do you participate in: walking and bicycling frequency: 3-4 times per week duration: 15-30 minutes/day leticia/druze: Islam seatbelt use: always do you feel safe at home: Yes 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 Date Name GA/Weeks Outcome Route Bth Weight Gen Labor Lgth Anesthesia Del Locatn Provider FOB 04/02/21 Marsha 41 live - full term 8lbs Female [address] [facility] Dr Shiva Vasquez Jason Delivery Date: 04/02/21 Last Updated by: Kelin Vance RN Failure to progress/ intolerance HPI 30 wk ob Details: REA DAHL is a 34 year old who presents for routine OB visit. OB Visit RENAE Calculator Estimated Delivery Date Method Current WG Current Estimate 02/24/25 LMP (Certain) 30w 4d Other Estimates 02/23/25 Ultrasound #1 30w 5d Expected Delivery Route/Plan patient counseled regarding risks/benefits of trial of labor versus repeat . ACOG/uptodate education given to patient. 43 % likelihood of success per calculator TOLAC consent form signed: [] Specific Issue/Plans Covid status: [] Flu vaccine: [] Tdap vaccine: [] Rhogam: baby Rh neg, deferred LARC form signed: yes Problem list reviewed and updated with the most current plan of care details and appropriate orders placed. Relevant counseling for the gestational age provided. Continue routine care and follow up unless otherwise noted in visit notes/problem list details Initial Weight: Not Recorded Date -?-?-?-?-?-?-?-?-?-?-?-?- EGA Weight BP Urine Prot -?-?-?-?-?-?-?-?-?-?-?-?- Glucose FHR FuHt Pres Dilation -?-?-?-?-?-?-?-?-?-?-?-?- Effaced St Visit Note 07/19/24 -?-?-?-?-?-?-?-?-?-?-?-?- 8w 4d 240 lb 120/81 -?-?-?-?-?-?-?-?-?-?-?-?- 163 -?-?-?-?-?-?-?-?-?-?-?-?- JV- NICOLE is consi stent with LMP. she had a prior section for pushing x 4 hours. She is obese but wants to attempt . chance of success is only 43%. will discuss more when gets further along. desires NIPT. rto in 3 weeks for heart beat check and labs. 08/16/24 -?-?-?-?-?-?-?-?-?-?-?-?- 12w 4d 246 lb 117/79 Negative -?-?-?-?-?-?-?-?-?-?-?-?- Negative 165 -?-?-?-?-?-?-?-?-?-?-?-?- KW- no vb/crampi ng. [facility] US ordered. KW- no vb/cramping. [facility] US o rdered. discussed AFP 09/23/24 -?-?-?-?-?-?-?-?-?-?-?-?- 18w 0d 244 lb 8 oz 112/76 Nega tive -?-?-?-?-?-?-?-?-?-?-?-?- Negative 150 -?-?-?-?-?-?-?-?-?-?-?-?- Sm- no vb lof cr amping some FM Sm- no vb lof cramping some FM discussed expectations for delivery and AMA, very reasonable and will do whatever is recommended for delivery 10/15/24 -?-?-?-?-?-?-?-?-?-?-?-?- 21w 1d 246 lb 6 oz 118/76 Nega tive -?-?-?-?-?-?-?-?-?-?-?-?- Negative 148 21 -?-?-?-?-?-?-?-?-?-?-?-?- LC- no vb/crampi ng. incomplete anatomy scan, working with insurance to obtain additional images through [facility]. 11/08/24 -?-?-?-?-?-?-?-?-?-?-?-?- 24w 4d 253 lb 4 oz 123/75 Nega tive -?-?-?-?-?-?-?-?-?-?-?-?- Negative 147 -?-?-?-?-?-?-?-?-?-?-?-?- JV- no lof, vagi nal bleeding, or dec fm. wants to plan for 40 week cs if no labor by then. 12/06/24 -?-?-?-?-?-?--?-?-?-?-?-?- 28w 4d 256 lb 123/80 Negative -?-?-?-?-?-?-?-?-?-?-?-?- Negative 135 28 -?-?-?-?-?-?-?-?-?-?-?-?- MH-NO VB, LOF. G ood FM. Larc. 28 wk labs pending. 12/20/24 -?-?-?-?-?-?-?-?-?-?-?-?- 30w 4d 258 lb 6 oz 110/51 -?-?-?-?-?-?-?-?-?-?-?-?- 135 31 -?-?-?-?-?-?-?-?-?-?-?-?- SM- n ovb lof go od fm no regualr ctsx ACOG First Trimester First Trimester: Desire for , Anticipated Course of Care, Use of Any medications, Sexual activity, Childbirth classes/Hospital facilities, Indications for Ultrasound and Screening for Aneuploidy; Discussed Second Trimester Second Trimester: Signs and Symptoms of Labor and Reproductive Life Planning & Contreception; Discussed Tobacco Cessation, Discussed Depression/Anxiety and Discussed Intimate Partner Violence Third Trimester Third Trimester: Pain Management Plans, Labor support person(s), Immediate Larc, Circumcision preference, Signs and Symptoms of Preeclampsia, Infant Feeding No and Family Medical Leave or Disability Forms Immunizations Boostrix Tdap 2.5 Lf unit-8 mcg-5 Lf/0.5 mL intramuscular syringe Performing Provider: Sally Cerna MD Performing Location: [facility] Administered by: Radha Morel on 12/20/24 10:28 Dose Route Admin Location Dispensed Lot Number Expiration Date NDC Intern Brand 0.5 mL IM Left Deltoid 0.5 mL [id number] 12/01/26 60959-727-35 [employer] VIS Given Date VIS Provided VIS Publication Date 12/20/24 Single Vaccine 24 Eligibility Eligibility Date Funding Source Not Applicable Coding Level of Care Code OB Routine Diagnoses Multigravida of advanced maternal age in third trimester O09.523 Trimester: third trimester History of delivery, currently O34.219 Obesity affecting in third trimester, unspecified obesity type O99.213 Obesity type affecting : unspecified obesity Trimester: third trimester Rh negative status during in third trimester O26.893; Z67.91 Trimester: third trimester Supervision of high risk in third trimester O09.93 Trimester: third trimester 30 weeks gestation of Z3A.30 Weeks of gestation: 30 weeks Irritable bowel syndrome K58.9 Seasonal allergies J30.2 Assessment and Plan Assessment and Plan (1) AMA (advanced maternal age) multigravida 35+: Status: Acute Qualifiers: Trimester: third trimester Qualified Code(s): O09.523 - Supervision of elderly multigravida, third trimester Comment: discussed delivery by 40 weeks, growth US at 36 (2) History of delivery, currently : Status: Acute Comment: x1, desires but will do whatever is safest, open to RLTCS if recommended wants to do plan for February 25 for repeat if no labor by then. 40 weeks 1 day)RLTCS scheduled for 02/25 @ 7:15 with JV (3) Obesity affecting : Status: Acute Qualifiers: Obesity type affecting : unspecified obesity Trimester: third trimester Qualified Code(s): O99.213 - Obesity complicating , third trimester Comment: BMI 33.7, HgBA1C ordered w/NOB labs (4) Rh negative status during : Status: Acute Qualifiers: Trimester: third trimester Qualified Code(s): O26.893 - Other specified related conditions, third trimester; Z67.91 - Unspecified blood type, Rh negative Comment: O-, Per Sharmaine baby is Rh - no need for Rhogam (5) Supervision of high-risk : Status: Acute Qualifiers: Trimester: third trimester Qualified Code(s): O09.93 - Supervision of high risk , unspecified, third trimester Comment: [id number], RENAE 02/24/25, boy John PC: Marsha, : Jason (6) : Status: Acute Qualifiers: Weeks of gestation: 30 weeks Qualified Code(s): Z3A.30 - 30 weeks gestation of Comment: NIPT low risk, declined carrier and ntd. (7) Irritable bowel syndrome: Status: Acute (8) Seasonal allergies: Status: Acute Orders: Orders POC Urinalysis 2 Dip (Clinic) Today Tdap Immunization Today Z23 - Encounter for immunization Medications: New Boostrix Tdap (diphth,pertus(acell),tetanus) 0.5 mL IM ONCE 1 mL 0RF NS Z23 - Encounter for immunization 12/20/24 1032 <Electronically signed by Sally thomas MD> Date _ Sally Cerna MD Cosigner Signature: Date (if applicable) CC: ~ [facility] Work Phone: Progress note Author Marvin Garner [facility] Note Date/Time January 03, 2025 10:12 am [facility] [address] [place] [address], [address] [place] [address] OFFICE VISIT Date of Service: 01/03/25 MR#: [id number] Acct: [id number] Name: REA DAHL Rep #: [id number] : 1990 Provider: ANTHONY Garner Age/Sex: 34/F Location: [facility] [place] Status: Signed Intake Vital Signs 08/16/24 11:22 12/20/24 10:25 01/03/25 09:54 Height 5 ft 9.25 in 5 ft 9.25 in 5 ft 9.25 in Weight: 260 lb BMI 38.1 BP 128/78 H Intake Visit Reasons: 32 wk ob Chief Complaint: 32wk OB Audio Visual Aids 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 Required: No Is patient in pain?: No Allergies spironolactone Allergy (Mild, Verified 01/03/25 09:54) Dizzyness Food Allergies: Uncoded Allergy (Verified 01/03/25 09:54) Abd cramps/diarrhea Seasonal Allergies: Uncoded (environmental) Allergy (Verified 01/03/25 09:54) NEEDS FOLLOW-UP Medications ?Medication ?Instructions ?Recorded ?Confirmed ?Type Prenatabs FA 1 tab PO/SL DAILY 03/26/21 01/03/25 History cholecalciferol (vitamin D3) 25 25 mcg PO DAILY 01/03/25 History mcg (1,000 unit) capsule vitamin C 30 mg-zinc citrate 1.1 tab PO 01/16/2301/03 History mg-elderberry 25 mg chewable tablet (Sambucus Elderberry) Last Menstrual Period: 05/20/24 : No Have you fallen in the past year?: No PFSH PFSH Medical History Hx of ovarian cyst Irritable bowel syndrome Gastrointestinal problem Seasonal allergies Surgical History Hx of section History of surgery Family History Mother Anxiety Asthma Arthritis Grandfather Asthma Arthritis CVA (cerebral vascular accident) Grandfather Diabetes Myocardial infarction Father Melanoma Parkinsons Lewy body dementia Grandmother Alzheimers disease Aunt Alzheimers disease Other Mental disorder Social History adopted: No household members: spouse, family and children number of children: 1 current occupational status: unemployed current occupation: [employer] current occupational exposures/hazards: No pets and animals: Yes ( taking care litter box ) pets and animals: cat(s) and dog(s) history of recent travel: Yes ([place] in July 2024) out of state: Yes out of country: No sexually active: Yes Smoking Status: Never smoker alcohol intake: current alcohol intake frequency: holidays/special occasions only details: Not while substance use type: does not use well-balanced diet: daily or most days caffeine: Yes Type: coffee eating out: 1-3 times/week what type of physical activity do you participate in: walking and bicycling frequency: 3-4 times per week duration: 15-30 minutes/day leticia/druze: Islam seatbelt use: always do you feel safe at home: Yes 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 Date Name GA/Weeks Outcome Route Bth Weight Infant Gen Labor Lgth Anesthesia Del Locatn Provider FOB 04/02/21 Marsha 41 live - full term 8lbs Female [address] [facility] Dr Shiva Gomez Delivery Date: 04/02/21 Last Updated by: Kelin Vance RN Failure to progress/ intolerance HPI 32 wk ob Details: REA DAHL is a 34 year old who presents for routine OB visit. OB Visit RENAE Calculator Estimated Delivery Date Method Current WG Current Estimate 02/24/25 LMP (Certain) 32w 4d Other Estimates 02/23/25 Ultrasound #1 32w 5d Expected Delivery Route/Plan patient counseled regarding risks/benefits of trial of labor versus repeat . ACOG/uptodate education given to patient. 43 % likelihood of success per calculator TOLAC consent form signed: [] Specific Issue/Plans Covid status: [] Flu vaccine: [] Tdap vaccine: [] Rhogam: baby Rh neg, deferred LARC form signed: yes Problem list reviewed and updated with the most current plan of care details and appropriate orders placed. Relevant counseling for the gestational age provided. Continue routine care and follow up unless otherwise noted in visit notes/problem list details Initial Weight: Not Recorded Date -?-?-?-?-?-?-?-?-?-?-?-?- EGA Weight BP Urine Prot -?-?-?-?-?-?-?-?-?-?-?-?- Glucose FHR FuHt Pres Dilation -?-?-?-?-?-?-?-?-?-?-?-?- Effaced St Visit Note 07/19/24 -?-?-?-?-?-?-?-?-?-?-?-?- 8w 4d 240 lb 120/81 -?-?-?-?-?-?-?-?-?-?-?-?- 163 -?-?-?-?-?-?-?-?-?-?-?-?- JV- CRL is consi stent with LMP. she had a prior section for pushing x 4 hours. She is obese but wants to attempt . chance of success is only 43%. will discuss more when gets further along. desires NIPT. rto in 3 weeks for heart beat check and labs. 08/16/24 -?-?-?-?-?-?-?-?-?-?-?-?- 12w 4d 246 lb 117/79 Negative -?-?-?-?-?-?-?-?-?-?-?-?- Negative 165 -?-?-?-?-?-?-?-?-?-?-?-?- KW- no vb/crampi ng. [facility] US ordered. KW- no vb/cramping. [facility] US o rdered. discussed AFP 09/23/24 -?-?-?-?-?-?-?-?-?-?-?-?- 18w 0d 244 lb 8 oz 112/76 Nega tive -?-?-?-?-?-?-?-?-?-?-?-?- Negative 150 -?-?-?-?-?-?-?-?-?-?-?-?- Sm- no vb lof cr amping some FM Sm- no vb lof cramping some FM discussed expectations for delivery and AMA, very reasonable and will do whatever is recommended for delivery 10/15/24 -?-?-?-?-?-?-?-?-?-?-?-?- 21w 1d 246 lb 6 oz 118/76 Nega tive -?-?-?-?-?-?-?-?-?-?-?-?- Negative 148 21 -?-?-?-?-?-?-?-?-?-?-?-?- LC- no vb/crampi ng. incomplete anatomy scan, working with insurance to obtain additional images through [facility] 11/08/24 -?-?-?-?-?-?-?-?-?-?-?-?- 24w 4d 253 lb 4 oz 123/75 Nega tive -?-?-?-?-?-?-?-?-?-?-?-?- Negative 147 -?-?-?-?-?-?-?-?-?-?-?-?- JV- no lof, vagi nal bleeding, or dec fm. wants to plan for 40 week cs if no labor by then. 12/06/24 -?-?-?-?-?-?-?-?-?-?-?-?- 28w 4d 256 lb 123/80 Negative -?-?-?-?-?-?-?-?-?-?-?-?- Negative 135 28 -?-?-?-?-?-?-?-?-?-?-?-?- MH-NO VB, LOF. G ood FM. Larc. 28 wk labs pending. 12/20/24 -?-?-?-?-?-?-?-?-?-?-?-?- 30w 4d 258 lb 6 oz 110/51 Nega tive -?-?-?-?-?-?-?-?-?-?-?-?- Negative 135 31 -?-?-?-?-?-?-?-?-?-?-?-?- SM- n ovb lof go od fm no regualr ctsx 01/03/25 -?-?-?-?-?-?-?-?-?-?-?-?- 32w 4d 260 lb 128/78 Negative -?-?-?-?-?-?-?-?-?-?-?-?- Negative 140 -?-?-?-?-?-?-?-?-?-?-?-?- kw- no vb/lof/ct x. good fm. concerns with pelvic pressure-hemorrhoids. still planning on if possible ACOG First Trimester First Trimester: Desire for , Anticipated Course of Care, Use of Any medications, Sexual activity, Childbirth classes/Hospital facilities, Indications for Ultrasound and Screening for Aneuploidy; Discussed Second Trimester Second Trimester: Signs and Symptoms of Labor and Reproductive Life Planning & Contreception; Discussed Tobacco Cessation, Discussed Depression/Anxiety and Discussed Intimate Partner Violence Third Trimester Third Trimester: Pain Management Plans, Labor support person(s), Immediate Larc, Circumcision preference, Signs and Symptoms of Preeclampsia, Infant Feeding No and Family Medical Leave or Disability Forms ROS Const Reports system reviewed and no additional complaints, except as documented Eyes Reports system reviewed and no additional complaints, except as documented ENT Reports system reviewed and no additional complaints, except as documented Card Reports system reviewed and no additional complaints, except as documented Resp Reports system reviewed and no additional complaints, except as documented GI Reports system reviewed and no additional complaints, except as documented, Denies nausea and Denies vomiting Reports system reviewed and no additional complaints, except as documented Musc Reports system reviewed and no additional complaints, except as documented Skin/Breast Reports system reviewed and no additional complaints, except as documented Neuro Yes system reviewed and no additional complaints, except as documented Psych Reports system reviewed and no additional complaints, except as documented Endo Reports system reviewed and no additional complaints, except as documented Tyson/Lymph Reports system reviewed and no additional complaints, except as documented Aller/Immun Reports system reviewed and no additional complaints, except as documented Exam Const General: cooperative, healthy appearing and no acute distress Orientation: alert, awake and oriented x3 Neck Neck: normal visual inspection and full ROM Resp Effort & Inspection: normal respiratory effort, able to speak in complete sentences and symmetric chest movement GI Inspection: normal to inspection Palpation: soft and other Other: gravid Skin General: no rashes or lesions noted Neuro General: patient alert, patient awake and patient oriented x3 Cognition: normal cognition Speech: speech normal Gait: normal gait Motor: muscle tone normal throughout Extrem General: normal to inspection and full ROM Psych Appearance: grossly normal Mental Status: mental status grossly normal Mood: congruent mood Affect: normal affect Speech and Movement: speech and movement normal Attitude: cooperative Thought Process: normal Thought Content: normal Judgment: judgment good Results POC Urinalysis 2 Dip (Clinic) Office Urine Glucose Negative Last Edit by Zuly Graves on 01/03/25 10:00 Office Urine Protein Negative Last Edit by Zuly Graves on 01/03/25 10:00 Coding Level of Care Code OB Routine Diagnoses Multigravida of advanced maternal age in third trimester O09.523 Trimester: third trimester History of delivery, currently O34.219 Obesity affecting in third trimester, unspecified obesity type O99.213 Obesity type affecting : unspecified obesity Trimester: third trimester Rh negative status during in third trimester O26.893; Z Trimester: third trimester Supervision of high risk in third trimester O Trimester: third trimester 32 weeks gestation of Z3A.32 Weeks of gestation: 32 weeks Irritable bowel syndrome K58.9 Seasonal allergies J30.2 Assessment and Plan Assessment and Plan (1) AMA (advanced maternal age) multigravida 35+: Status: Acute Qualifiers: Trimester: third trimester Qualified Code(s): O09.523 - Supervision of elderly multigravida, third trimester Comment: discussed delivery by 40 weeks, growth US at 36 (2) History of delivery, currently : Status: Acute Comment: x1, desires but will do whatever is safest, open to RLTCS if recommended wants to do plan for February 25 for repeat if no labor by then. 40 weeks 1 day)RLTCS scheduled for 02/25 @ 7:15 with JV (3) Obesity affecting : Status: Acute Qualifiers: Obesity type affecting : unspecified obesity Trimester: third trimester Qualified Code(s): O99.213 - Obesity complicating , third trimester Comment: BMI 33.7, HgBA1C ordered w/NOB labs (4) Rh negative status during : Status: Acute Qualifiers: Trimester: third trimester Qualified Code(s): O26.893 - Other specified related conditions, third trimester; Z - Unspecified blood type, Rh negative Comment: O-, Per Sharmaine baby is Rh - no need for Rhogam (5) Supervision of high-risk : Status: Acute Qualifiers: Trimester: third trimester Qualified Code(s): O. - Supervision of high risk , unspecified, third trimester Comment: [id number], RENAE 02/24/25, boy John [facility]: Marsha, : Jason (6) : Status: Acute Qualifiers: Weeks of gestation: 32 weeks Qualified Code(s): Z3A.32 - 32 weeks gestation of Comment: NIPT low risk, declined carrier and ntd. (7) Irritable bowel syndrome: Status: Acute (8) Seasonal allergies: Status: Acute Orders: Orders POC Urinalysis 2 Dip (Clinic) Today Plan Details Additional Comments: ACOG trimester education reviewed and updated. see problem list details for updated plan management information and see below for orders placed at this visit. GA appropriate handout given. Clinical Quality Measures Falls Risk Screening/Assistive Devices Have you fallen in the past year?: No 01/03/25 1012 <Electronically signed by Marvin heller CNM> Date _ Marvin Garner CNM Cosigner Signature: Date (if applicable) CC: ~ [facility] Work Phone: Reason for referral (narrative)No reason for referral information availableWSelect Medical [facility] Work Phone: Summary Purpose Family History No Family History Records Found Relationship Condition Age at Onset Recorded Date/T danitza Not Specified Mental disorder Unknown mother Anxiety Unknown Asthma Unknown Arthritis Unknown grandfather Asthma Unknown Cerebrovascular accident (CVA) Unknown grandfather Diabetes mellitus Unknown Myocardial infarction Unknown father Malignant melanoma Unknown Parkinson's disease Unknown Lewy body dementia Unknown grandmother Alzheimer's disease Unknown aunt Alzheimer's disease Unknown Advance Directives No Advanced Directives Records Found Advance Directive Response Recorded Date/ Time Living Will No April 02 1 5:26am Power of Tree Thinner No April 02 021 5:26am Advance Directive Response Recorded Date/ Time Living Will No April 02 1 4:26am Power of Tree Thinner No April 02 021 4:26am Chief Complaint and Reason for Visit Chief Complaint COVID POS Chief Complaint Amb Documentation Amb Documentation Right upper quadrant pain Chief Complaint Right upper quadrant pain CHEST TIGHTNESS CHEST TIGHTNESS EORDER Chief Complaint Admit Date 12wk OB August 16, 2024 1 1:14am 18 wk ob September 23, 2024 10:13am 20 wk ob October 15, 2024 10: 53am 24 wk ob November 08, 2024 10:0 9am 28 wk ob/glucose December 06, 2024 9:48am Reason for Visit Admit Date AMA (advanced maternal age) multigravida 35+ September 23, 2024 10:13am History of delivery, currently September 23, 2024 10:13am Irritable bowel syndrome September 23, 2024 10:13am Obesity affecting September 10:13am September 23, 2024 10:13am Rh negative status during Febr [facility] 2024 10:13am Seasonal allergies September 23, 2024 10:13am Supervision of high-risk Febru [email or web address] 10:13am AMA (advanced maternal age) multigravida 35+ October 15, 2024 10:53am History of delivery, currently October 15, 2024 10:53am Irritable bowel syndrome October 15 10:53am Obesity affecting October 15, 2024 10:53am October 15, 2024 10: 53am Rh negative status during [facility] 2024 10:53am Seasonal allergies October 15, 2024 10: 53am Supervision of high-risk October 15, 2024 10:53am AMA (advanced maternal age) multigravida 35+ November 08, 2024 10:09am History of delivery, currently November 08, 2024 10:09am Irritable bowel syndrome November 08, 2024 10:09am Obesity affecting November 08, 025 10:09am November 08, 2024 10:0 9am Rh negative status during Apri l 2024 10:09am Seasonal allergies November 08, 2024 10:0 9am Supervision of high-risk November 08, 2024 10:09am AMA (advanced maternal age) multigravida 35+ December 06, 2024 9:48am History of delivery, currently December 06, 2024 9:48am Obesity affecting December 06 9:48am December 06, 2024 9:48am Rh negative status during December 06, 2024 9:48am Supervision of high-risk December [id number] 9:48am Chief Complaint Admit Date 18 wk ob September 23, 2024 10:13am 20 wk ob October 15, 2024 10: 53am 24 wk ob November 08, 2024 10:0 9am 28 wk ob/glucose December 06, 2024 9:48am 30 wk ob December 20, 2024 10:14 am Reason for Visit Admit Date AMA (advanced maternal age) multigravida 35+ September 23, 2024 10:13am History of delivery, currently September 23, 2024 10:13am Irritable bowel syndrome September 23, 2024 10:13am Obesity affecting September 10:13am September 23, 2024 10:13am Rh negative status during Febr uary 2024 10:13am Seasonal allergies September 23, 2024 10:13am Supervision of high-risk Febru [email or web address] 10:13am AMA (advanced maternal age) multigravida 35+ October 15, 2024 10:53am History of delivery, currently October 15, 2024 10:53am Irritable bowel syndrome October 15 10:53am Obesity affecting October 15, 2024 10:53am October 15, 2024 10: 53am Rh negative status during Connor 2024 10:53am Seasonal allergies October 15, 2024 10: 53am Supervision of high-risk October 15, 2024 10:53am AMA (advanced maternal age) multigravida 35+ November 08, 2024 10:09am History of delivery, currently November 08, 2024 10:09am Irritable bowel syndrome November 08, 2024 10:09am Obesity affecting November 08, 025 10:09am November 08, 2024 10:0 9am Rh negative status during Apri l 2024 10:09am Seasonal allergies November 08, 2024 10:0 9am Supervision of high-risk November 08, 2024 10:09am AMA (advanced maternal age) multigravida 35+ December 06, 2024 9:48am History of delivery, currently December 06, 2024 9:48am Obesity affecting December 06 9:48am December 06, 2024 9:48am Rh negative status during December 06, 2024 9:48am Supervision of high-risk December [id number] 9:48am AMA (advanced maternal age) multigravida 35+ December 20, 2024 10:14am History of delivery, currently December 20, 2024 10:14am Irritable bowel syndrome December 20, 2024 10:14am Obesity affecting December 20 10:14am December 20, 2024 10:14 am Rh negative status during December 20, 2024 10:14am Seasonal allergies December 20, 2024 10:14 am Supervision of high-risk December 022024 10:14am Chief Complaint Admit Date 18 wk ob September 23, 2024 10:13am 20 wk ob October 15, 2024 10: 53am 24 wk ob November 08, 2024 10:0 9am 28 wk ob/glucose December 06, 2024 9:48am 30 wk ob December 20, 2024 10:14 am 32 wk ob January 03, 2025 9:50a m Reason for Visit Admit Date AMA (advanced maternal age) multigravida 35+ September 23, 2024 10:13am History of delivery, currently September 23, 2024 10:13am Irritable bowel syndrome September 23, 2024 10:13am Obesity affecting September 10:13am September 23, 2024 10:13am Rh negative status during Febr ua 2024 10:13am Seasonal allergies September 23, 2024 10:13am Supervision of high-risk Febru [email or web address] 10:13am AMA (advanced maternal age) multigravida 35+ October 15, 2024 10:53am History of delivery, currently October 15, 2024 10:53am Irritable bowel syndrome October 15 10:53am Obesity affecting October 15, 2024 10:53am October 15, 2024 10: 53am Rh negative status during [facility] h 2024 10:53am Seasonal allergies October 15, 2024 10: 53am Supervision of high-risk October 15, 2024 10:53am AMA (advanced maternal age) multigravida 35+ November 08, 2024 10:09am History of delivery, currently November 08, 2024 10:09am Irritable bowel syndrome November 08, 2024 10:09am Obesity affecting November 08, 025 10:09am November 08, 2024 10:0 9am Rh negative status during Apri l 2024 10:09am Seasonal allergies November 08, 2024 10:0 9am Supervision of high-risk November 08, 2024 10:09am AMA (advanced maternal age) multigravida 35+ December 06, 2024 9:48am History of delivery, currently December 06, 2024 9:48am Obesity affecting December 06 9:48am December 06, 2024 9:48am Rh negative status during December 06, 2024 9:48am Supervision of high-risk December [id number] 9:48am AMA (advanced maternal age) multigravida 35+ December 20, 2024 10:14am History of delivery, currently December 20, 2024 10:14am Irritable bowel syndrome December 20, 2024 10:14am Obesity affecting December 20 10:14am December 20, 2024 10:14 am Rh negative status during December 20, 2024 10:14am Seasonal allergies December 20, 2024 10:14 am Supervision of high-risk December 022024 10:14am AMA (advanced maternal age) multigravida 35+ January 03, 2025 9:50am History of delivery, currently January 03, 2025 9:50am Irritable bowel syndrome January 03, 2025 9:50am Obesity affecting January 03 9:50am January 03, 2025 9:50a m Rh negative status during January 03, 2025 9:50am Seasonal allergies January 03, 2025 9:50a m Supervision of high-risk January 03, 2025 9:50am Additional Source Comments INFORMATION SOURCE (unrecogn ized section and content) DATE CREATED AUTHOR 01/20/2018 [facility] DATE CREATED AUTHOR AUTHOR'S ORGANIZ ATION 05/26/2021 [facility] DATE CREATED AUTHOR AUTHOR'S ORGANIZ ATION 12/16/2021 [facility] DATE CREATED AUTHOR AUTHOR'S ORGANIZ ATION 10/02/2024 [facility] DATE CREATED AUTHOR AUTHOR'S ORGANIZ ATION 01/03/2025 [facility] Goals (unrecognized section and content) Goals may be documented in a n alternate sectionGoals may be documented in an alternate sectionGoals may be documented in an alternate sectionGoals may be documented in an alternate sectionGoals may be documented in an alternate sectionGoals may be documented in an alternate sectionGoals may be documented in an alternate section Source Comments (unrecognize d section and content) In the event this informatio n is protected by the Federal Confidentiality of Alcohol and Drug Abuse Patient Records regulations: The Federal rules restrict any use of the information to criminally investigate or prosecute any alcohol or drug abuse patient.[facility] the event this information is protected by the Federal Confidentiality of Alcohol and Drug Abuse Patient Records regulations: The Federal rules restrict any use of the information to criminally investigate or prosecute any alcohol or drug abuse patient.[facility] Center[facility] the event this information is protected by the Federal Confidentiality of Alcohol and Drug Abuse Patient Records regulations: The Federal rules restrict any use of the information to criminally investigate or prosecute any alcohol or drug abuse patient.[facility] Center[facility] the event this information is protected by the Federal Confidentiality of Alcohol and Drug Abuse Patient Records regulations: The Federal rules restrict any use of the information to criminally investigate or prosecute any alcohol or drug abuse patient.[facility] Reason for Visit (unrecogniz ed section and content) Reason Comments 6 Month Exam patient is here for 6 month physical Reason Comments Results Reason Comments Fatigue Care Teams (unrecognized sec tion and content) 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 Relationship Specialty Start Date End Date Benson Das MD [address] [place] [id number] PCP - General Family Practice 05/16/21 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 Srinivasan Aranda III, MD Family Provider Active Dr. Benson Das MD Primary Care Provider Active Team Status: Active Member Role Status Dates Dr. Benson Das MD Primary Care Provider Active Elza Cui Attending Provider Active Team Status: Inactive Member Role Status Dates Dr. Benson Das MD Primary Care Provider Active Oleksandr Katz MD Attending Provider, Referring Provide r Active Team Status: Active Member Role Status Dates Dr. Srinivasan Aranda III, MD Family Provider Active Oleksandr Katz MD Primary Care Provider Active Team Status: Active Member Role Status Melanie Katz MD Primary Care Provide r, Referring Provider, Other Provider Active Dr. Klever Huerta MD Attending Provider Active Team Status: Inactive Member Role Status Melanie Katz MD Primary Care Provide r, Attending Provider, Referring Provider Active Team Status: Inactive Member Role Status Melanie Katz MD Primary Care Provider Active St art: August 16, 2024 End: August 16, 2024 Oleksandr Katz MD Referring Provider Active Start : August 16, 2024 End: August 16, 2024 Marvin Garner CNM Attending Provider Active S tart: August 16, 2024 End: August 16, 2024 Team Status: Inactive Member Role Status Melanie Katz MD Primary Care Provider Active St art: August 16, 2024 End: August 16, 2024 Dr. Jeaneth Kramer DO Attending Provider Activ e Start: August 16, 2024 End: August 16, 2024 Dr. Jeaneth Kramer DO Referring Provider Activ e Start: August 16, 2024 End: August 16, 2024 Team Status: Inactive Member Role Status Dates Dr. Sally Cerna MD Attending Provider Active Start: September 23, 2024 End: September 23, 2024 Team Status: Inactive Member Role Status Melanie Katz MD Referring Provider Active Start : October 15, 2024 End: October 15, 2024 Morenita Dickerson CNM Attending Provider Active Start: October 15, 2024 End: October 15, 2024 Team Status: Inactive Member Role Status Melanie Katz MD Referring Provider Active Start : November 08, 2024 End: November 08, 2024 Dr. Jeaneth Kramer DO Attending Provider Activ e Start: November 08, 2024 End: November 08, 2024 Team Status: Inactive Member Role Status Melanie Katz MD Referring Provider Active Start : December 06, 2024 End: December 06, 2024 Radha Muhammad NP, ML-C Attending Provider Active Start: December 06, 2024 End: December 06, 2024 Team Status: Inactive Member Role Status Dates Dr. Jeaneth Kramer DO Attending Provider Activ e Start: December 06, 2024 End: December 06, 2024 Team Status: Inactive Member Role Status Dates Oleksandr Katz MD Referring Provider Active Start : December 20, 2024 End: December 20, 2024 Dr. Sally Cerna MD Attending Provider Active Start: December 20, 2024 End: December 20, 2024 Team Status: Inactive Member Role Status Dates Oleksandr Katz MD Referring Provider Active Start : January 03, 2025 End: January 03, 2025 Marvin Garner CNM Attending Provider Active S tart: January 03, 2025 End: January 03, 2025 FOR RECORDS PERTAINING TO PATIENTS WHO ARE OR HAVE BEEN ENROLLED IN A CHEMICAL DEPENDENCY/SUBSTANCEABUSE PROGRAM, SOME INFORMATION MAY BE OMITTED. This clinical summary was aggregated from multiple sources. Caution should be exercised in using it in the provision of clinical care. This summary normalizes information from multiple sources, and as a consequence, information in this document may materially change the coding, format and clinical context of patient data. In addition, data may be omitted in some cases. CLINICAL DECISIONS SHOULD BE BASED ON THE PRIMARY CLINICAL RECORDS. [employer] [facility] provides no warranty or guarantee of the accuracy or completeness of information in this document.
[2025-01-16] MEDS: Lactated Ringers 1,000 ML 999 ML IV ×2 (15:15→21:24)
[2025-01-16 15:16] LABS: Color, Urine Yellow (Yellow); Glucose, Dipstick Normal (Normal); Ketone-Dipstick Negative (Negative); Leukocyte Esterase-Dipstick 100 /ul (Negative); Nitrite-Dipstick Negative (Negative); Occult Blood-Urine Negative /ul (Negative); Protein-Dipstick Negative (Negative); Urine Bilirubin Dipstick Negative (Negative); Urine Clarity Clear (Clear); Urine Urobilinogen Normal (Normal)
[2025-01-16] MEDS: Betamethasone/Betamethasone 30 MG/5 ML Vial 12 MG IM (16:04)
--- NOTE | 2025-01-16 17:14 | EKG12_ITS ---
Test Reason : ARRHYTHMIA Blood Pressure : */* mmHG Vent. Rate : 77 BPM Atrial Rate : 77 BPM P-R Int : 148 ms QRS Dur : 82 ms QT Int : 404 ms P-R-T Axes : 53 26 53 degrees QTcB Int : 457 ms Sinus rhythm with occasional Premature ventricular complexes Otherwise normal ECG When compared with ECG of 20-Mar-2015 15:20, Premature ventricular complexes are now Present Confirmed by SANDRA MENDIOLA, KIRILL ([id number]), assistant film editor CUCA ELIZABETH ([id number]) on 01/18/2025 8:27:16 AM Referred By: CHUCK Confirmed By: KIRILL FLORES MD
[2025-01-16] MEDS: Terbutaline 1 MG/ML Vial 0.25 MG SC (17:43)
--- NOTE | 2025-01-16 18:53 | HP.PCM.OB_ITS ---
HPI - General HPI Narrative STEFANIE TA, is a 34 y/p @ 34 weeks 3 days who presents to L&D with the complaint of worsening contraction pain. She states that they started on and have continued to get stronger. She was examined by the nurse and found to be 1/50/-3 and 2 hours later 160/-3. She was offered terbutaline one time to try and accepted. She states that it helped lessen the contractions. We discussed acog guidelines when it comes to management of PTL after reaching the 34th week of gestation and recommendations are basically just observation unless SROM. She is willing to stay for observation. Celestone was also given in the case that she choses a repeat section over Maternal Data Information RENAE Calculator Estimated Delivery Date Method Current WG Current Estimate 02/24/25 LMP (Certain) 34w 3d Other Estimates 02/23/25 Ultrasound #1 34w 4d PFSH PFSH Medical History Hx of ovarian cyst Irritable bowel syndrome Gastrointestinal problem Seasonal allergies Home Medications ?Medication ?Instructions ?Recorded ?Last Taken ?Type Prenatabs FA 1 tab PO/SL DAILY 03/26/21 04/01/21 History cholecalciferol (vitamin D3) 25 25 mcg PO DAILY Unknown History mcg (1,000 unit) capsule vitamin C 30 mg-zinc citrate 1.1 1 tab PO DAILY supple mentation 01/16/23 Unknown History mg-elderberry 25 mg chewable tablet (Sambucus Elderberry) fexofenadine-pseudoephedrine ER 1 tab PO DAILY 5 Unknown History 180 mg-240 mg tablet,ext.release 24 hr Allergy/AdvReac Type Severity Reaction Status Date / Time spironolactone Allergy Mild Dizzyness Verified 01/03/25 09:54 Food Allergies: Uncoded Allergy Abd Verified 01/03/25 09:54 cramps/diarrhea Seasonal Allergies: Uncoded Allergy NEEDS Verified 01/03/25 09:54 (environmental) FOLLOW-UP Family History Mother Anxiety Asthma Arthritis Grandfather Asthma Arthritis CVA (cerebral vascular accident) Grandfather Diabetes Myocardial infarction Father Melanoma Parkinsons Lewy body dementia Grandmother Alzheimers disease Aunt Alzheimers disease Other Mental disorder Surgical History Hx of section History of surgery Social History adopted: No household members: spouse, family and children number of children: 1 current occupational status: unemployed current occupation: [employer] current occupational exposures/hazards: No pets and animals: Yes ( taking care litter box ) pets and animals: cat(s) and dog(s) history of recent travel: Yes ([place] in July 2024) out of state: Yes out of country: No sexually active: Yes Smoking Status: Never smoker alcohol intake: current alcohol intake frequency: holidays/special occasions only details: Not while substance use type: does not use well-balanced diet: daily or most days caffeine: Yes Type: coffee eating out: 1-3 times/week what type of physical activity do you participate in: walking and bicycling frequency: 3-4 times per week duration: 15-30 minutes/day leticia/evangelical: Yazidism seatbelt use: always do you feel safe at home: Yes 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 Date Name GA/Weeks Outcome Route Bth Weight Infant Gen Labor Lgth Anesthesia Del Locatn Provider FOB 04/02/21 Marsha 41 live - full term 8lbs Female 34 s rosi [facility] Dr Shiva Gomez Delivery Date: 04/02/21 Last Updated by: Kelin Vance RN Failure to progress/ intolerance Visit Details Expected Delivery Route/Plan patient counseled regarding risks/benefits of trial of labor versus repeat . ACOG/uptodate education given to patient. 43 % likelihood of success per calculator TOLAC consent form signed: [] Plans Covid status: [] Flu vaccine: [] Tdap vaccine: [] Rhogam: baby Rh neg, deferred LARC form signed: yes Problem list reviewed and updated with the most current plan of care details and appropriate orders placed. Relevant counseling for the gestational age provided. Continue routine care and follow up unless otherwise noted in visit notes/problem list details OB Flowsheet Initial Weight: Not Recorded Date -?--?-?-?-?-?-?-?-?-?-?-?- EGA Weight BP Urine Prot -?-?-?-?-?-?-?-?-?-?-?-?- Glucose FHR FuHt Pres Dilation -?-?-?-?-?-?-?-?-?-?-?-?- Effaced St Visit Note 07/19/24 -?-?-?-?-?-?-?-?-?-?-?-?- 8w 4d 240 lb 120/81 -?-?-?-?-?-?-?-?-?-?-?-?- 163 -?-?-?-?-?-?-?-?-?-?-?-?- JV- CRL is consi stent with LMP. she had a prior section for pushing x 4 hours. She is obese but wants to attempt . chance of success is only 43%. will discuss more when gets further along. desires NIPT. rto in 3 weeks for heart beat check and labs. 08/16/24 -?-?-?-?-?-?-?-?-?-?-?-?- 12w 4d 246 lb 117/79 Negative -?-?-?-?-?-?-?-?-?-?-?-?- Negative 165 -?-?-?-?-?-?-?-?-?-?-?-?- KW- no vb/crampi ng. [facility] US ordered. KW- no vb/cramping. [facility] US o rdered. discussed AFP 09/23/24 -?-?-?-?-?-?-?-?-?-?-?-?- 18w 0d 244 lb 8 oz 112/76 Nega tive -?-?-?-?-?-?-?-?-?-?-?-?- Negative 150 -?-?-?-?-?-?--?-?-?-?-?-?- Sm- no vb lof cr amping some FM Sm- no vb lof cramping some FM discussed expectations for delivery and AMA, very reasonable and will do whatever is recommended for delivery 10/15/24 -?-?-?-?-?-?-?-?-?-?-?-?- 21w 1d 246 lb 6 oz 118/76 Nega tive -?-?-?-?-?-?-?-?-?-?-?-?- Negative 148 21 -?-?-?-?-?-?-?-?-?-?-?-?- LC- no vb/crampi ng. incomplete anatomy scan, working with insurance to obtain additional images through M. 11/08/24 -?-?-?-?-?-?-?-?-?-?-?-?- 24w 4d 253 lb 4 oz 123/75 Nega tive -?-?-?-?-?-?-?-?-?-?-?-?- Negative 147 -?-?-?-?-?-?-?-?-?-?-?-?- JV- no lof, vagi nal bleeding, or dec fm. wants to plan for 40 week cs if no labor by then. 12/06/24 -?-?-?-?-?-?-?-?-?-?-?-?- 28w 4d 256 lb 123/80 Negative -?-?-?-?-?-?-?-?-?-?-?-?- Negative 135 28 -?-?-?-?-?-?-?-?-?-?-?-?- MH-NO VB, LOF. G ood FM. Larc. 28 wk labs pending. 12/20/24 -?-?-?-?-?-?-?-?-?-?-?-?- 30w 4d 258 lb 6 oz 110/51 Nega tive -?-?-?-?--?-?-?-?-?-?-?-?- Negative 135 31 -?-?-?-?-?-?-?-?-?-?-?-?- SM- n ovb lof go od fm no regualr ctsx 01/03/25 -?-?-?-?-?-?-?-?-?-?-?-?- 32w 4d 260 lb 128/78 Negative -?-?-?-?-?-?-?-?-?-?-?-?- Negative 140 -?-?-?-?-?-?-?-?-?-?-?-?- kw- no vb/lof/ct x. good fm. concerns with pelvic pressure-hemorrhoids. still planning on if possible ROS Constitutional Constitutional: Denies change in weight, fatigue, fever(s), headache(s), poor appetite or weakness Eyes Eyes: Denies blurry vision, change in vision, seeing flashes or spots in vision ENT HEENT: Denies dizziness, headache(s), loss taste/smell or sore throat Cardiovascular Cardiovascular: Denies chest pain, dizziness, dyspnea, irregular heart rhythm, leg edema, palpitations, rapid heart rate or vomiting Respiratory/Chest Respiratory/Chest: Denies chest tightness, cough, dyspnea or breast pain Gastrointestinal Gastrointestinal: Denies abdominal pain, anorexia, constipation, cramping, diarrhea, hemorrhoids, vomiting or weight changes Genitourinary Genitourinary: Denies dysuria, flank pain, genital lesions, genital pain, urinary frequency or urinary urgency Musculoskeletal Musculoskeletal: Denies back pain, difficulty walking, joint pain, limited range of motion, muscle cramps or numbness Integumentary Integumentary: Denies lesions or unusual bruising Neurologic Neurologic: Denies abnormal movements, abnormal speech, dizziness, numbness, seizure-like activity or syncope Psychiatric Psychiatric: Denies anxiety, behavioral changes, change in appetite, change in libido, cognitive impairment, confusion, depression, difficulty concentrating, hallucinations or suicidal thoughts Endocrine Endocrinology: Denies excessive sweating, polydipsia or polyuria Hematologic/Lymphatic Hematologic/Lymphatic: Denies easy bleeding, easy bruising or lymphadenopathy Allergic/Immunologic Allergic/Immunologic: Denies itchy eyes, lip swelling, seasonal rhinorrhea, rhinitis, throat swelling, tongue swelling, eczemia, wheezing or asthma Vital Signs Vital Signs Vital Signs: 01/16/25 14:12 01/16/25 14:12 Pulse Rate 75 Blood Pressure 129/75 H BP Systolic 129 BP Diastolic 75 Weight Weight: 262 lb 8 oz Body Mass Index (BMI) 38.7 Physical Exam Const alert, oriented x3, no apparent distress and healthy appearing General Appearance: cooperative; Negative for anxious HEENT normocephalic Face and Sinus: normal facial exam Eyes EOMs intact bilaterally and no scleral icterus General Eye: normal appearance of both eyes Neck full ROM and supple Lymph Lymphatic: no lymphadenopathy noted Chest Chest: abnormal inspection of the chest Resp normal respiratory effort Effort and Inspection: able to speak in complete sentences Cardio regular rate GI soft to palpation and non-tender Inspection: gravid Palpation: soft; Negative for tender Back/Spine no CVA tenderness Extremity normal to inspection, full ROM and no clubbing, cyanosis or edema General Extremity: Negative for calf tenderness or edema Skin Lesions: no lesions Rashes: no rashes Psych mental status grossly normal Labs Labs Labs: Blood Type O NEGATIVE Antibody Screen NEGATIVE Hct 36.1 % (37-47) L Hgb 11.9 g/dL (12.0-15.0) L Syphilis Total Ab Nonreactive (Nonreactive) Rubella IgG Antibody Reactive (Nonreactive) Hep Bs Antigen Non-Reactive (Nonreactive) Hepatitis C Antibody Non-Reactive (Nonreactive) Chlamydia DNA (VIJAY) Negative (Negative) N.gonorrhoeae DNA (VIJAY) Negative (Negative) HIV 1&2 Antibody Nonreactive (Nonreactive) Glucose 1 Hr 50 gm 130 mg/dL (70-140) Gest Glucose Tolerance MG/DL Rhogam given: Yes Assessment & Plan (1) Threatened labor: (2) AMA (advanced maternal age) multigravida 35+: QUALIFIERS: Trimester: third trimester Qualified Code(s): O09.523 - Supervision of elderly multigravida, third trimester COMMENT: discussed delivery by 40 weeks, growth US at 36 (3) History of delivery, currently : COMMENT: x1, desires but will do whatever is safest, open to RLTCS if recommended wants to do plan for February 25 for repeat if no labor by then. 40 weeks 1 day)RLTCS scheduled for 02/25 @ 7:15 with JV (4) Obesity affecting : QUALIFIERS: Trimester: third trimester Obesity type affecting : unspecified obesity Qualified Code(s): O99.213 - Obesity complicating , third trimester COMMENT: BMI 33.7, HgBA1C ordered w/NOB labs (5) Rh negative status during : QUALIFIERS: Trimester: third trimester Qualified Code(s): O26.893 - Other specified related conditions, third trimester; Z67.91 - Unspecified blood type, Rh negative COMMENT: O-, Per Sharmaine baby is Rh - no need for Rhogam (6) Supervision of high-risk : QUALIFIERS: Trimester: third trimester Qualified Code(s): O09.93 - Supervision of high risk , unspecified, third trimester COMMENT: [id number], RENAE 02/24/25, boy John PC: Marsha, : Jason (7) : QUALIFIERS: Weeks of gestation: 32 weeks Qualified Code(s): Z3A.32 - 32 weeks gestation of COMMENT: NIPT low risk, declined carrier and ntd. (8) Irritable bowel syndrome: (9) Seasonal allergies: PLAN: Plan celestone x 1 given terbutaline x 1 given. worked for about 30 minutes and contractions returned. pt will decide on vs rpt section continue IV fluids for now clear liquids for now.
--- OUTSIDE RECORDS SUMMARY | 2025-01-16 20:46 | XMS RPT_ITS | CCD ---
Author Organization [facility] Care Team Providers Care Doorperson Or Luggage Porter Name Role Phone CHRISTIANNE GRIFFIN Unavailable Unavailable *SELF, REFERRED Unavailable Unavailable UNKNOWN, PCP Unavailable Unavailable Benson Das MD Primary Care Provider Benson Das MD Primary Care Provider Dr. Benson Das Primary Care Provider Elza Cui Attending Provider Unavailable MD Oleksandr Katz Primary Care Provider MD Oleksandr Katz Referring Provider [phone] MD Oleksandr Katz Other Provider Dr. Klever Huerta Attending Provider [phone] CHRISTIANNE JUNE Attending Unavailable OLEKSANDR KATZ Primary Care Unavailable MARVIN GARNER Referring Unavailable Oleksandr Katz MD Primary Care Provider Oleksandr Katz MD Referring Provider [phone] Marvin Garner CNM Attending Provider [phone] Dr. Jeaneth Kramer DO Attending Provider Dr. Jeaneth Kramer DO Referring Provider Dr. Sally Cerna MD Attending Provider Morenita Dickerson CNM Attending Provider [phone] Radha Unger Attending Provider [phone] Oleksandr Katz MD Referring Provider [phone] Dr. Jeaneth Kramer DO Attending Provider Marvin Garner CNM Attending Provider [phone] Oleksandr Katz Referring Unavailable Sally Cerna Attending [...] allergy Allergy to substance 04-02-20 21 Other [facility] Work Phone: (2 sources) hormonal treatments Propensity to adverse reactions 07-04-20 21 dizziness [facility] Work Phone: (4 sources) Desogestrel / Ethinyl Estradiol Drug Allergy 04-27-20 20 Other: See Comments [facility] Work Phone: (4 sources) Dust Allergy to substance 01-16-20 16 Other: See Comments [facility] Work Phone: [phone] (4 sources) Grass pollen Drug Allergy 01-16-20 16 Cough [facility] Work Phone: (4 sources) Animal Dander Drug Allergy 01-16-20 16 Cough [facility] Work Phone: (7 sources) Seasonal Allergies: Uncoded; Translations: [Seasonal Allergies: Uncoded] Allergy to substance 03-27-20 22 NEEDS FOLLOW-UP [facility] (2 sources) Albuterol Drug Allergy 01-17-20 Other [facility] (2 sources) cigarette smoke Allergy to substance 01-17-20 Other [facility] (6 sources) Food Allergies: Uncoded; Translations: [Food Allergies: Uncoded] Allergy to substance 03-31-20 Abd cramps/diarrhe a [facility] Comment on above: Industrial grease/oi l (2 sources) Luteinizing Hormone Analogues Propensity to adverse reactions 01-08-20 dizziness [facility] (2 sources) hormonal prescriptions Allergy to substance 01-17-20 Other [facility] (3 sources) Spironolactone Drug Allergy 12-07-19 Dizzyness [facility] (1 source) Spironolactone Drug Allergy 01-04-20 [facility] Repository Medications Current Medications Medication Drug Class(es) Dates Sig (Normalized) Sig (Original) Stzukrl-Mdibkfjj-Czzz in-Papaya (2 sources) Start: 01-16-2023 Bgmlqar-Tgcvecub-Tnf ain-Papaya Active TABLET PO January 16, 2023 [...] on above: Take 2 tablets by mo [facility] once daily for 5 days. Prenatabs FA [...] 21, 2022 1:00am September 22, 2022 1:05am Retksdu-Erglvjxh-Fx pain-Papaya 50 mcg-1 mg- 10 mg-10 mg tablet,chewable (3 sources) Start: 01-16-2023 End: 07-09-2024 Dtxjpmc-Kaphahvb-P apain-Papaya 50 mcg-1 mg- 10 mg-10 mg [...] unspecified trimester] 12-06-2024 Episodic Comment on above: [id number], RENAE 5, boy John [facility]: Marsha, : [...] Test Name Value Interpretation Reference Range Facility Solvent Station Attendant Office Visit Reporton 01-03-2025 Solvent Station Attendant Office Visit Report [facility] [address], [address] [place] [address] OFFICE VISIT Date of Service: 01/03/25 MR#: [id number] Acct: [id number] Name: REA DAHL Rep #: [id number] : 1990 Provider: ANTHONY Bravo ams Age/Sex: 34/F [place] [facility] [place]: Signed Intake Vital Signs 08/16/24 11:22 12/20/24 10:25 01/03/25 09:54 Height 5 ft 9.25 in 5 ft 9.25 in 5 ft 9.25 in Weight: 260 lb BMI 38.1 BP 128/78 H Intake Visit Reasons: 32 wk ob Chief Complaint: 32wk OB Chin Strap Cutter Required: No Is patient in pain?: No [...] 1 current occupational status: unemployed current occupation: [employer] current occupational exposures/hazards: No pets and animals: [...] 3-4 times per week duration: 15-30 minutes/day leticia/scientology: Mandaeism seatbelt use: always do you feel safe [...] - full term 8lbs Female 34 [address] [facility] [address] Shiva Gomez Delivery Date: 04/02/21 [...] -???-???-???-???-??? -???-??? (more content not included)... Normal [facility] - Chemistry and C hemistry - challengeOrdered By: Sally Cerna on 12-20-2024 Glucose Ql (U) Negative [facility] - UrinalysisOrder ed By: Sally Cerna on 12-20-2024 Protein Ql (U) Negative [facility] Solvent Station Attendant Office Visit Reporton 12-20-2024 Solvent Station Attendant Office Visit Report [facility] [address] [place] [address], [address] [place] [address] OFFICE VISIT Date of Service: 12/20/24 MR#: [id number] Acct: [id number] Name: REA DAHL Rep #: [id number] : 1990 Provider: Dr. Sally walton MD Age/Sex: 34/F Location[place] [facility] [place] Status: Signed Intake Vital Signs 07/19/24 10:31 12/06/24 09:45 12/20/24 10:18 12/20/24 10:25 Height 5 ft 9.25 in 5 ft 9.25 in 5 ft 9 in 5 ft 9.25 in Weight: 258 lb 6 oz BMI 38.1 BP 110/51 L Intake Visit Reasons: 30 wk ob Chin Strap Cutter Required: No Is patient in pain?: No [...] 1 current occupational status: unemployed current occupation: [employer] current occupational exposures/hazards: No pets and animals: [...] 3-4 times per week duration: 15-30 minutes/day leticia/scientology: Mandaeism seatbelt use: always do you feel safe [...] -???-???-???-???-??? -??? (more content not included)... Normal [facility] Absolute lymphocyte countOrd ered By: Jeaneth Lezama on 12-06-2024 Lymphocytes Auto (Unsp spec) [#/Vol] 1.17 10*3/uL 0.83-4.51 [facility] Absolute neutrophil countOrd ered By: Jeaneth Lezama on 12-06-2024 Neutrophils (Bld) [#/Vol] 8.3 10*3/uL High 2.0-7.7 [facility] Automated lymphocyte count a s percentage of total leukocytesOrdered By: Jeaneth Lezama on 12-06-2024 Lymphocytes/100 WBC Auto (Unsp spec) 11.5 % Low 19-41 [facility] Basophil percentageOrdered B y: Jeaneth Lezama on 12-06-2024 Basophils/100 WBC (Bld) 0.2 % 0-1 [facility] CBC W/Diff, Automatedon Absolute Lymph 1.17 X10 3/uL Normal 0.83-4.51 [facility] Comment on above: Performed By: #### L 501.0250, L3890.6006, L509.8002, BTS, L100.0100 ####[facility] [address] [place], [address] Absolute Neut 8.3 X10 3/uL High 2.0-7.7 [facility] Comment on above: Performed By: #### L 501.0250, L3890.6006, L509.8002, BTS, L100.0100 ####[facility] [address] [place], [address] Basophils/100 WBC (Bld) 0.2 % Normal 0-1 [facility] Comment on above: Performed By: #### L 501.0250, L3890.6006, L509.8002, BTS, L100.0100 ####[facility] [address] [place], [address] Eosinophils/100 WBC (Bld) 1.4 % Normal 0-5 [facility] Comment on above: Performed By: #### L 501.0250, L3890.6006, L509.8002, BTS, L100.0100 ####[facility] [address] [place], [address] Erythrocyte distribution width (RBC) [Ratio] 14.1 % Normal 11.6-14.6 [facility] Comment on above: Performed By: #### L 501.0250, L3890.6006, L509.8002, BTS, L100.0100 ####[facility] [address] [place], [address] Hematocrit (Bld) [Volume fraction] 36.1 % Low 37-47 [facility] Comment on above: Performed By: #### L 501.0250, L3890.6006, L509.8002, BTS, L100.0100 ####[facility] [address] [place], [address] Hemoglobin (Bld) [Mass/Vol] 11.9 g/dL Low 12.0-15.0 [facility] Comment on above: Performed By: #### L 501.0250, L3890.6006, L509.8002, BTS, L100.0100 ####[facility] [address] [place], [address] IG% 0.700 Normal 0.0-0.9 [facility] Comment on above: Result Comment: IG% - Immature Granulocytes (promyelocytes, myelocytes and metamyelocytes) > 1% indicates that a LEFT SHIFT is Present. Performed By: #### L 501.0250, L3890.6006, L509.8002, BTS, L100.0100 ####[facility] [address] [place], [address] Lymphocytes/100 WBC (Bld) 11.5 % Low 19-41 [facility] Comment on above: Performed By: #### L 501.0250, L3890.6006, L509.8002, BTS, L100.0100 ####[facility] [address] [place], [address] MCH (RBC) [Entitic mass] 28.6 pg Normal 27.0-32.0 [facility] Comment on above: Performed By: #### L 501.0250, L3890.6006, L509.8002, BTS, L100.0100 ####[facility] [address] [place], [address] MCHC (RBC) [Mass/Vol] 33.0 g/dL Normal 32-36 [facility] Comment on above: Performed By: #### L 501.0250, L3890.6006, L509.8002, BTS, L100.0100 ####[facility] [address] [place], [address] MCV (RBC) [Entitic vol] 86.8 fL Normal 81-99 [facility] Comment on above: Performed By: #### L 501.0250, L3890.6006, L509.8002, BTS, L100.0100 ####[facility] [address] [place], [address] Monocytes/100 WBC (Bld) 5.1 % Normal 0-10 [facility] Comment on above: Performed By: #### L 501.0250, L3890.6006, L509.8002, BTS, L100.0100 ####[facility] [address] [place], [address] Neutrophils/100 WBC (Bld) 81.1 % High 47-70 [facility] Comment on above: Performed By: #### L 501.0250, L3890.6006, L509.8002, BTS, L100.0100 ####[facility] [address] [place], [address] Nucleated RBC (Bld) [#/Vol] 0 10*3/uL Normal 0-5 [facility] Comment on above: Performed By: #### L 501.0250, L3890.6006, L509.8002, BTS, L100.0100 ####[facility] [address] [place], [address] Platelet mean volume (Bld) [Entitic vol] 10.3 fL Normal 6.2-12.0 [facility] Comment on above: Performed By: #### L 501.0250, L3890.6006, L509.8002, BTS, L100.0100 ####[facility] [address] [place], [address] Platelets (Bld) [#/Vol] 208 10*3/uL Normal 150-450 [facility] Comment on above: Performed By: #### L 501.0250, L3890.6006, L509.8002, BTS, L100.0100 ####[facility] [address] [place], [address] RBC (Bld) [#/Vol] 4.16 10*6/uL Low 4.2-5.4 [facility] Comment on above: Performed By: #### L 501.0250, L3890.6006, L509.8002, BTS, L100.0100 ####[facility] [address] [place], [address] RDW SD 44.6 fl High 35.1-43.9 [facility] Comment on above: Performed By: #### L 501.0250, L3890.6006, L509.8002, BTS, L100.0100 ####[facility] [address] [place], [address] WBC (Bld) [#/Vol] 10.2 10*3/uL Normal 4.4-11.0 [facility] Comment on above: Performed By: #### L 501.0250, L3890.6006, L509.8002, BTS, L100.0100 ####[facility] [address] [place], [address] Eosinophil percentageOrdered By: Jeaneth Lezama on 12-06-2024 Eosinophils/100 WBC (Bld) 1.4 % 0-5 [facility] Erythrocyte distribution wid th ratioOrdered By: Jeaneth Lezama on 12-06-2024 Erythrocyte distribution width (RBC) [Ratio] 14.1 % 11.6-14.6 [facility] Erythrocyte distribution wid th standard deviationOrdered By: Jeaneth Lezama on 12-06-2024 Erythrocyte distribution width (RBC) [Ratio] 44.6 fl High 35.1-43.9 [facility] Glucose Challenge Gest 1H 50 cb 12-06-2024 GLU GEST 50g 1H 130 mg/dL Normal 70-140 [facility] Comment on above: Performed By: #### L 501.0250, L3890.6006, L509.8002, BTS, L100.0100 ####[facility] [address] [place], [place], [address] Glucose measurement at 2 ezequiel rs post-dose gestational glucose tolerance testOrdered By: Jeaneth Lezama on 12-06-2024 Glucose [Mass/Vol] 130 mg/dL 70-140 [facility] HIVon 12-06-2024 HIV Non-Reactive Normal Nonreactive [facility] Comment on above: Result Comment: Non- Reactive Reactive Repeatedly reactive samples must be confirmed according to CDC recommended confirmatory algorithms. The subresults for either HIVAG or AHIV can be used as an aid in the selection of the confirmation algorithm for reactive samples. Send out specimens with Reactive results to [facility] for confirmation. Order the HIV antibody detection and differentiation: lc#[id number] Performed By: #### L 501.0250, L3890.6006, L509.8002, BTS, L100.0100 ####[facility] [address] [place], [place], [address] Hematocrit Auto (Bld) [Volum e fraction]Ordered By: Jeaneth Lezama on 12-06-2024 Hematocrit (Bld) [Volume fraction] 36.1 % Low 37-47 [facility] Hemoglobin measurementOrdere d By: Jeaneth Lezama on 12-06-2024 Hemoglobin (Bld) [Mass/Vol] 11.9 g/dL Low 12.0-15.0 [facility] Immature granulocytes/100 WB C Auto (Bld)Ordered By: Jeaneth Lezama on 12-06-2024 Immature granulocytes/100 WBC (Bld) 0.700 % 0.0-0.9 [facility] Comment on above: IG% - Immature Granu locytes (promyelocytes, myelocytes and metamyelocytes) > 1% indicates that a LEFT SHIFT is Present. Laboratory - Chemistry and C hemistry - challengeOrdered By: Radha Muhammad on 12-06-2024 Glucose Ql (U) Negative [facility] Laboratory - UrinalysisOrder ed By: Radha Muhmamad on 12-06-2024 Protein Ql (U) Negative [facility] MCV (mean corpuscular volume ) determinationOrdered By: Jeaneth Lezama on 12-06-2024 MCV (RBC) [Entitic vol] 86.8 fL 81-99 [facility] Mean corpuscular hemoglobin (MCH) determinationOrdered By: Jeaneth Lezama on 12-06-2024 MCH (RBC) [Entitic mass] 28.6 pg 27.0-32.0 [facility] Mean corpuscular hemoglobin concentration (MCHC) determinationOrdered By: Jeaneth Lezama on 12-06-2024 MCHC (RBC) [Mass/Vol] 33.0 g/dL 32-36 [facility] Mean platelet volume determi nationOrdered By: Jeaneth Lezama on 12-06-2024 Platelet mean volume (Bld) [Entitic vol] 10.3 fL 6.2-12.0 [facility] Monocyte percentageOrdered B y: Jeaneth Lezama on 12-06-2024 Monocytes/100 WBC (Bld) 5.1 % 0-10 [facility] Neutrophil percentageOrdered By: Jeaneth Lezama on 12-06-2024 Neutrophils/100 WBC (Bld) 81.1 % High 47-70 [facility] No Panel InformationOrdered By: Jeaneth Lezama on 12-06-2024 HIV (1&2) Antibody Non-Reactive Nonreactive [facility] Comment on above: Non-ReactiveReactive Repeatedly reactive samples must be confirmed according to CDC recommended confirmatory algorithms. The subresults for either HIVAG or AHIV can be used as an aid in the selection of the confirmation algorithm for reactive samples.Send out specimens with Reactive results to [facility] for confirmation.Order the HIV antibody detection and differentiation: #[id number] Nucleated red blood cell per centageOrdered By: Jeaneth Lezama on 12-06-2024 Nucleated RBC/100 WBC (Bld) [Ratio] 0 % 0-5 [facility] Solvent Station Attendant Office Visit Reporton 12-06-2024 Solvent Station Attendant Office Visit Report [facility] [address], [address] [place] [address] OFFICE VISIT Date of Service: 12/06/24 MR#: [id number] Acct: [id number] Name: REA DAHL Rep #: [id number] : 1990 Provider: MAURO burkett Age/Sex: 34/F [place] [facility] [place] Status: Signed Intake Vital Signs 07/19/24 10:31 12/06/24 09:45 Height 5 ft 9.25 in 5 ft 9.25 in Weight: 256 lb BMI 37.5 BP 123/80 H Intake Visit Reasons: 28 wk ob/glucose Chin Strap Cutter Required: No Is patient in pain?: No [...] 1 current occupational status: unemployed current occupation: [employer] current occupational exposures/hazards: No pets and animals: [...] 3-4 times per week duration: 15-30 minutes/day leticia/scientology: Mandaeism seatbelt use: always do you feel safe [...] 240 lb (more content not included)... Normal [facility] Platelet countOrdered By: Nico Lezama on 12-06-2024 Platelets (Bld) [#/Vol] 208 10*3/uL 150-450 [facility] RBC Auto (Bld) [#/Vol]Ordere d By: Jeaneth Lezama on 12-06-2024 RBC (Bld) [#/Vol] 4.16 10*6/uL Low 4.2-5.4 [facility] Syphilis Antibodieson 2024 Syphilis Abs Non-Reactive Normal Nonreactive [facility] Comment on above: Performed By: #### L 501.0250, L3890.6006, L509.8002, BTS, L100.0100 ####[facility] [address] [place], [place], [address] Type AND Screenon 12-06-2024 ABO and Rh group Nom (Bld) Blood group O Rh(D) negative Normal [facility] Comment on above: Order Comment: HVAG Performed By: #### L 501.0250, L3890.6006, L509.8002, BTS, L100.0100 ####[facility] [address] [place], [address] White blood cell (WBC) count Ordered By: Jeaneth Lezama on 12-06-2024 WBC (Bld) [#/Vol] 10.2 10*3/uL 4.4-11.0 [facility] Laboratory - Chemistry and C hemistry - challengeOrdered By: Jeaneth Lezama on 11-08-2024 Glucose Ql (U) Negative [facility] Laboratory - UrinalysisOrder ed By: Jeaneth Lezama on 11-08-2024 Protein Ql (U) Negative [facility] Solvent Station Attendant Office Visit Reporton 11-08-2024 Solvent Station Attendant Office Visit Report [facility] [address], [address] [place] [address] OFFICE VISIT Date of Service: 11/08/24 MR#: [id number] Acct: [id number] Name: REA DAHL Rep #: [id number] : 1990 Provider: Dr. Jeaneth Loco DO Age/Sex: 34/F [place] [facility] [place]: Signed Intake Vital Signs 07/19/24 10:31 10/15/24 11:04 11/08/24 10:10 11/08/24 10:13 Height 5 ft 9.25 in 5 ft 9.25 in 5 ft 9.25 in 5 ft 9.25 in Weight: 253 lb 4 oz BMI 37.1 BP 123/75 H Intake Visit Reasons: 24 wk ob Chin Strap Cutter Required: No Is patient in pain?: No [...] 1 current occupational status: unemployed current occupation: [employer] current occupational exposures/hazards: No pets and animals: [...] 3-4 times per week duration: 15-30 minutes/day leticia/scientology: Mandaeism seatbelt use: always do you feel safe [...] - full term 8lbs Female 34 [address] [facility] [address] Shiva Gomez Delivery Date: 04/02/21 [...] -???-???-???-???-??? -???-???-?? (more content not included)... Normal [facility] Laboratory - Chemistry and C hemistry - challengeOrdered By: Morenita Dickerson on 10-15-2024 Glucose Ql (U) Negative [facility] - UrinalysisOrder ed By: Morenita Dickerson on 10-15-2024 Protein Ql (U) Negative [facility] Solvent Station Attendant Office Visit Reporton 10-15-2024 Solvent Station Attendant Office Visit Report [facility] [address], [address] [place] [address] OFFICE VISIT Date of Service: 10/15/24 MR#: [id number] Acct: [id number] Name: REA DAHL Rep #: [id number] : 1990 Provider: ANTHONY limon Age/Sex: 34/F Location: [facility] Status: Signed Intake Vital Signs 07/19/24 10:31 09/23/24 10:18 10/15/24 11:02 10/15/24 11:04 Height 5 ft 9.25 in 5 ft 9.25 in 5 ft 9.25 in 5 ft 9.25 in Weight: 246 lb 6 oz BMI 36.1 BP 118/76 Intake Visit Reasons: 20 wk ob Chin Strap Cutter Required: No Is patient in pain?: No [...] 1 current occupational status: unemployed current occupation: [employer] current occupational exposures/hazards: No pets and animals: [...] 3-4 times per week duration: 15-30 minutes/day leticia/scientology: Mandaeism seatbelt use: always do you feel safe [...] - full term 8lbs Female 34 [address] [facility] [address] Shiva Gomez Delivery Date: 04/02/21 [...] -???-???-???-???-??? -?? (more content not included)... Normal [facility] Laboratory - Chemistry and C hemistry - challengeOrdered By: Sally Cerna on 09-23-2024 Glucose Ql (U) Negative [facility] - UrinalysisOrder ed By: Sally Cerna on 09-23-2024 Protein Ql (U) Negative [facility] Solvent Station Attendant Office Visit Reporton 09-23-2024 Solvent Station Attendant Office Visit Report [facility] [address], [address] [place] [address] OFFICE VISIT Date of Service: 09/23/24 MR#: [id number] Acct: [id number] Name: REA DAHL Rep #: [id number] : 1990 Provider: Dr. Sally walton MD Age/Sex: 33/F Location: [facility] Status: Signed Intake Vital Signs 08/16/24 11:22 09/23/24 10:18 Height 5 ft 9.25 in 5 ft 9.25 in Weight: 244 lb 8 oz BMI 35.8 BP 112/76 Intake Visit Reasons: 18 wk ob Chin Strap Cutter Required: No Is patient in pain?: No [...] 1 current occupational status: unemployed current occupation: [employer] current occupational exposures/hazards: No pets and animals: [...] 3-4 times per week duration: 15-30 minutes/day leticia/scientology: Mandaeism seatbelt use: always do you feel safe [...] -???-???- Effaced (more content not included)... Normal [facility] HIV - WCHon 08-17-2024 HIV Non-Reactive Normal Nonreactive [facility] Comment on above: Order Comment: Reaso n for Exam: Performed By: #### L 509.4005, L100.0100, L3890.6005, L900.0098, BTS, L509.8000, L501.9985, L3890.6100, L3890.6300 ####[facility] [address] [place], [address] Absolute lymphocyte countOrd ered By: Jeaneth Lezama on 08-16-2024 Lymphocytes Auto (Unsp spec) [#/Vol] 1.28 10*3/uL 0.83-4.51 [facility] Absolute neutrophil countOrd ered By: Jeaneth Lezama on 08-16-2024 Neutrophils (Bld) [#/Vol] 6.5 10*3/uL 2.0-7.7 [facility] Automated lymphocyte count a s percentage of total leukocytesOrdered By: Jeaneth Lezama on 08-16-2024 Lymphocytes/100 WBC Auto (Unsp spec) 15.2 % Low 19-41 [facility] Basophil percentageOrdered B y: Jeaneth Lezama on 08-16-2024 Basophils/100 WBC (Bld) 0.5 % 0-1 [facility] CBC W/Diff, Automatedon 08-04 Absolute Lymph 1.28 X10 3/uL Normal 0.83-4.51 [facility] Comment on above: Performed By: #### L 509.4005, L100.0100, L3890.6005, L900.0098, BTS, L509.8000, L501.9985, L3890.6100, L3890.6300 #### [facility] [address] [place], [address] Absolute Neut 6.5 X10 3/uL Normal 2.0-7.7 [facility] Comment on above: Performed By: #### L 509.4005, L100.0100, L3890.6005, L900.0098, BTS, L509.8000, L501.9985, L3890.6100, L3890.6300 #### [facility] [address] [place], [address] Basophils/100 WBC (Bld) 0.5 % Normal 0-1 [facility] Comment on above: Performed By: #### L 509.4005, L100.0100, L3890.6005, L900.0098, BTS, L509.8000, L501.9985, L3890.6100, L3890.6300 #### [facility] [address] [place], [address] Eosinophils/100 WBC (Bld) 2.0 % Normal 0-5 [facility] Comment on above: Performed By: #### L 509.4005, L100.0100, L3890.6005, L900.0098, BTS, L509.8000, L501.9985, L3890.6100, L3890.6300 #### [facility] [address] [place], [address] Erythrocyte distribution width (RBC) [Ratio] 13.0 % Normal 11.6-14.6 [facility] Comment on above: Performed By: #### L 509.4005, L100.0100, L3890.6005, L900.0098, BTS, L509.8000, L501.9985, L3890.6100, L3890.6300 #### [facility] [address] [place], [address] Hematocrit (Bld) [Volume fraction] 38.4 % Normal 37-47 [facility] Comment on above: Performed By: #### L 509.4005, L100.0100, L3890.6005, L900.0098, BTS, L509.8000, L501.9985, L3890.6100, L3890.6300 #### [facility] [address] [place], [place], [id number] (089 Hemoglobin (Bld) [Mass/Vol] 12.6 g/dL Normal 12.0-15.0 [facility] Comment on above: Performed By: #### L 509.4005, L100.0100, L3890.6005, L900.0098, BTS, L509.8000, L501.9985, L3890.6100, L3890.6300 #### [facility] [address] [place], [place], [phone] (253 IG% 0.500 Normal 0.0-0.9 [facility] Comment on above: Result Comment: IG% - Immature Granulocytes (promyelocytes, myelocytes and metamyelocytes) > 1% indicates that a LEFT SHIFT is Present. Performed By: #### L 509.4005, L100.0100, L3890.6005, L900.0098, BTS, L509.8000, L501.9985, L3890.6100, L3890.6300 #### [facility] [address] [place], [address] Lymphocytes/100 WBC (Bld) 15.2 % Low 19-41 [facility] Comment on above: Performed By: #### L 509.4005, L100.0100, L3890.6005, L900.0098, BTS, L509.8000, L501.9985, L3890.6100, L3890.6300 #### [facility] [address] [place], [address] MCH (RBC) [Entitic mass] 28.9 pg Normal 27.0-32.0 [facility] Comment on above: Performed By: #### L 509.4005, L100.0100, L3890.6005, L900.0098, BTS, L509.8000, L501.9985, L3890.6100, L3890.6300 #### [facility] [address] [facility] [place], [address] MCHC (RBC) [Mass/Vol] 32.8 g/dL Normal 32-36 [facility] Comment on above: Performed By: #### L 509.4005, L100.0100, L3890.6005, L900.0098, BTS, L509.8000, L501.9985, L3890.6100, L3890.6300 #### [facility] [address] [place], [address] MCV (RBC) [Entitic vol] 88.1 fL Normal 81-99 [facility] Comment on above: Performed By: #### L 509.4005, L100.0100, L3890.6005, L900.0098, BTS, L509.8000, L501.9985, L3890.6100, L3890.6300 #### [facility] [address] [place], [address] Monocytes/100 WBC (Bld) 5.2 % Normal 0-10 [facility] Comment on above: Performed By: #### L 509.4005, L100.0100, L3890.6005, L900.0098, BTS, L509.8000, L501.9985, L3890.6100, L3890.6300 #### [facility] [address] [place], [address] Neutrophils/100 WBC (Bld) 76.6 % High 47-70 [facility] Comment on above: Performed By: #### L 509.4005, L100.0100, L3890.6005, L900.0098, BTS, L509.8000, L501.9985, L3890.6100, L3890.6300 #### [facility] [address] [place], [address] Nucleated RBC (Bld) [#/Vol] 0 10*3/uL Normal 0-5 [facility] Comment on above: Performed By: #### L 509.4005, L100.0100, L3890.6005, L900.0098, BTS, L509.8000, L501.9985, L3890.6100, L3890.6300 #### [facility] [address] [place], [address] Platelet mean volume (Bld) [Entitic vol] 10.0 fL Normal 6.2-12.0 [facility] Comment on above: Performed By: #### L 509.4005, L100.0100, L3890.6005, L900.0098, BTS, L509.8000, L501.9985, L3890.6100, L3890.6300 #### [facility] [address] [place], [address] Platelets (Bld) [#/Vol] 234 10*3/uL Normal 150-450 [facility] Comment on above: Performed By: #### L 509.4005, L100.0100, L3890.6005, L900.0098, BTS, L509.8000, L501.9985, L3890.6100, L3890.6300 #### [facility] [address] [place], [address] RBC (Bld) [#/Vol] 4.36 10*6/uL Normal 4.2-5.4 [facility] Comment on above: Performed By: #### L 509.4005, L100.0100, L3890.6005, L900.0098, BTS, L509.8000, L501.9985, L3890.6100, L3890.6300 #### [facility] [address] [place], [place], [phone] (106) RDW SD 42.0 fl Normal 35.1-43.9 [facility] Comment on above: Performed By: #### L 509.4005, L100.0100, L3890.6005, L900.0098, BTS, L509.8000, L501.9985, L3890.6100, L3890.6300 #### [facility] [address] [place], [address] WBC (Bld) [#/Vol] 8.4 10*3/uL Normal 4.4-11.0 [facility] Comment on above: Performed By: #### L 509.4005, L100.0100, L3890.6005, L900.0098, BTS, L509.8000, L501.9985, L3890.6100, L3890.6300 #### [facility] [address] [place], [place], [phone] (674) Eosinophil percentageOrdered By: Jeaneth Lezama on 08-16-2024 Eosinophils/100 WBC (Bld) 2.0 % 0-5 [facility] Erythrocyte distribution wid th ratioOrdered By: Jeaneth Lezama on 08-16-2024 Erythrocyte distribution width (RBC) [Ratio] 13.0 % 11.6-14.6 [facility] Erythrocyte distribution wid th standard deviationOrdered By: Jeaneth Lezama on 08-16-2024 Erythrocyte distribution width (RBC) [Ratio] 42.0 fl 35.1-43.9 [facility] HIV 1 and HIV-2 antibody ass ay with HIV-1 p24 antigen detectionOrdered By: Jeaneth Lezama on 08-16-2024 HIV 1+2 Ab+HIV1 p24 Ag IA Ql Non-Reactive Nonreactive [facility] Hematocrit Auto (Bld) [Volum e fraction]Ordered By: Jeaneth Lezama on 08-16-2024 Hematocrit (Bld) [Volume fraction] 38.4 % 37-47 [facility] Hemoglobin A1con 08-16-2024 HbA1c (Bld) [Mass fraction] 5.3 % Normal 3.8-5.6 [facility] Comment on above: Result Comment: Norm al < 5.7 % Prediabetic 5.7 - 6.4 % Diabetic >or= 6.5 % Please note range changes. Performed By: #### L 509.4005, L100.0100, L3890.6005, L900.0098, BTS, L509.8000, L501.9985, L3890.6100, L3890.6300 #### [facility] [address] [place], [place], [id number] Hemoglobin A1c percentageOrd ered By: Jeaneth Lezama on 08-16-2024 HbA1c (Bld) [Mass fraction] 5.3 % 3.8-5.6 [facility] Comment on above: Normal < 5.7 % Predi abetic 5.7 - 6.4 % Diabetic >or= 6.5 % Please note range changes. Hemoglobin measurementOrdere d By: Jeaneth Lezama on 08-16-2024 Hemoglobin (Bld) [Mass/Vol] 12.6 g/dL 12.0-15.0 [facility] Hepatitis B Surface Antigeno n 08-16-2024 HEP B Surf Ag Non-Reactive Normal Nonreactive [facility] Comment on above: Order Comment: Reaso n for Exam: Performed By: #### L 509.4005, L100.0100, L3890.6005, L900.0098, BTS, L509.8000, L501.9985, L3890.6100, L3890.6300 ####[facility] [address] [place], [place], [id number] Hepatitis C Antibodyon 08-16 Hepatitis C AB Non-Reactive Normal Nonreactive [facility] Comment on above: Order Comment: Reaso n for Exam: Result Comment: Non Reactive: < 0.8 Equivocal: >/= 0.8 to < 1.0 Reactive: >/= 1.0 [facility] requires that a reactive/equivocal HCV antibody result be sent out for confirmation. HCV Quant by PCR testing. Performed By: #### L 509.4005, L100.0100, L3890.6005, L900.0098, BTS, L509.8000, L501.9985, L3890.6100, L3890.6300 ####[facility] [address] [place], [address] Immature granulocytes/100 WB C Auto (Bld)Ordered By: Jeaneth Lezama on 08-16-2024 Immature granulocytes/100 WBC (Bld) 0.500 % 0.0-0.9 [facility] Comment on above: IG% - Immature Granu locytes (promyelocytes, myelocytes and metamyelocytes) > 1% indicates that a LEFT SHIFT is Present. L509.8000on 08-16-2024 Syphilis Abs Non-Reactive Normal [facility] Comment on above: Order Comment: Reaso n for Exam: Performed By: #### L 509.4005, L100.0100, L3890.6005, L900.0098, BTS, L509.8000, L501.9985, L3890.6100, L3890.6300 ####[facility] [address] [place], [place], [id number] Laboratory - Chemistry and C hemistry - challengeon 08-16-2024 Glucose Ql (U) Negative [facility] - Urinalysison Protein Ql (U) Negative [facility] MCV (mean corpuscular volume ) determinationOrdered By: Jeaneth Lezama on 08-16-2024 MCV (RBC) [Entitic vol] 88.1 fL 81-99 [facility] Mean corpuscular hemoglobin (MCH) determinationOrdered By: Jeaneth Lezama on 08-16-2024 MCH (RBC) [Entitic mass] 28.9 pg 27.0-32.0 [facility] Mean corpuscular hemoglobin concentration (MCHC) determinationOrdered By: Jeaneth Lezama on 08-16-2024 MCHC (RBC) [Mass/Vol] 32.8 g/dL 32-36 [facility] Mean platelet volume determi nationOrdered By: Jeaneth Lezama on 08-16-2024 Platelet mean volume (Bld) [Entitic vol] 10.0 fL 6.2-12.0 [facility] Monocyte percentageOrdered B y: Jeaneth Lezama on 08-16-2024 Monocytes/100 WBC (Bld) 5.2 % 0-10 [facility] NATERAon 08-16-2024 NATURA SEE SCANNED REPORT Normal [facility] Comment on above: Performed By: #### L 509.4005, L100.0100, L3890.6005, L900.0098, BTS, L509.8000, L501.9985, L3890.6100, L3890.6300 #### [facility] [address] [place] [address]. [place], [address] Neutrophil percentageOrdered By: Jeaneth Lezama on 08-16-2024 Neutrophils/100 WBC (Bld) 76.6 % High 47-70 [facility] Nucleated red blood cell per centageOrdered By: Jeaneth Lezama on 08-16-2024 Nucleated RBC/100 WBC (Bld) [Ratio] 0 % 0-5 [facility] Solvent Station Attendant Office Visit Reporton 08-16-2024 Solvent Station Attendant Office Visit Report [facility] [address], [address] [place] [address] OFFICE VISIT Date of Service: 08/16/24 MR#: [id number] Acct: [id number] Name: REA DAHL Rep #: [id number] : 1990 Provider: ANTHONY Bravo ams Age/Sex: 33/F Location: [facility] Status: Signed Intake Vital Signs 04/16/24 11:36 07/19/24 10:31 08/16/24 11:22 Height 5 ft 9.25 in 5 ft 9.25 in 5 ft 9.25 in Weight: 246 lb BMI 36.0 BP 117/79 Intake Visit Reasons: 12wk OB Chin Strap Cutter Required: No Accompanied by: Self Is patient [...] 1 current occupational status: unemployed current occupation: [employer] current occupational exposures/hazards: No pets and animals: [...] 3-4 times per week duration: 15-30 minutes/day leticia/scientology: Mandaeism seatbelt use: always do you feel safe [...] -???-???-???-???-??? -???-???-???-??? (more content not included)... Normal [facility] Platelet countOrdered By: Nico Lezama on 08-16-2024 Platelets (Bld) [#/Vol] 234 10*3/uL 150-450 [facility] RBC Auto (Bld) [#/Vol]Ordere d By: Jeaneth Lezama on 08-16-2024 RBC (Bld) [#/Vol] 4.36 10*6/uL 4.2-5.4 [facility] Rubella IgGon 08-16-2024 Rubella IgG Reactive Normal Nonreactive [facility] Comment on above: Order Comment: Reaso n for Exam: Result Comment: Anti body Results Interpretation of Immune Status Non Reactive Presumed Non-Immune Equivocal Equivocal Reactive Presumed Immune Performed By: #### L 509.4005, L100.0100, L3890.6005, L900.0098, BTS, L509.8000, L501.9985, L3890.6100, L3890.6300 #### [facility] [address] [place], [address] Serum Treponema species anti body detectionOrdered By: Jeaneth Lezama on 08-16-2024 Treponema sp Ab Ql (S) Non-Reactive [facility] Type AND Screenon 08-16-2024 ABO and Rh group Nom (Bld) Blood group O Rh(D) negative Normal [facility] Comment on above: Order Comment: PN Performed By: #### L 509.4005, L100.0100, L3890.6005, L900.0098, BTS, L509.8000, L501.9985, L3890.6100, L3890.6300 #### [facility] [address] [place], [address] White blood cell (WBC) count Ordered By: Jeaneth Lezama on 08-16-2024 WBC (Bld) [#/Vol] 8.4 10*3/uL 4.4-11.0 [facility] Urine Cultureon 07-21-2024 URC Below infection level. Mixed Gram Positive Organisms Lacrosse Count 1000-10,000 MIXC Mixed contaminants. Submit a new specimen if indicated. Normal [facility] Comment on above: Performed By: #### L 7000.1800, M100.2200 #### [facility] [address] [place], [address] Chlamydia/GC VIJAY aptimaon CHLAMY,NUC ACID Negative Normal Negative [facility] Comment on above: Performed By: #### L 7000.1800, M100.2200 #### [facility] [address] [place], [address] GC BY NUC ACID Negative Normal Negative [facility] Comment on above: Result Comment: Perf ormed at: =G - [facility] [address] [id number] Sales Outfitter: Lizbeth Rodrigez MD, Phone: [phone] Performed By: #### L 7000.1800, M100.2200 #### [facility] [address] [place], [address] Solvent Station Attendant Office Visit Reporton 07-19-2024 Solvent Station Attendant Office Visit Report [facility], [address] [place] [address] OFFICE VISIT Date of Service: 07/19/24 MR#: [id number] Acct: [id number] Name: REA DAHL Rep #: [id number] : 1990 Provider: Dr. Jeaneth Loco DO Age/Sex: 33/F Location: [facility] Status: Signed Intake Vital Signs 04/16/24 11:36 07/19/24 10:29 07/19/24 10:31 Height 5 ft 9.25 in 5 ft 9.25 in 5 ft 9.25 in Weight: 240 lb BMI 35.2 BP 120/81 H Intake Visit Reasons: NOB, LMP 05/20, RENAE 02/24/25 Chin Strap Cutter Required: No Is patient in pain?: No [...] No current occupational status: unemployed current occupation: [employer] current occupational exposures/hazards: No pets and animals: [...] 3-4 times per week duration: 15-30 minutes/day leticia/scientology: Mandaeism seatbelt use: always do you feel safe [...] -???-???- Ef (more content not included)... Normal [facility] Absolute lymphocyte countOrd ered By: Oleksandr Katz on 05-31-2023 Lymphocytes Auto (Unsp spec) [#/Vol] 1.84 10*3/uL 0.83-4.51 [facility] Basophil percentageOrdered B y: Oleksandr Katz on 05-31-2023 Basophils/100 WBC (Bld) 0.5 % 0-1 [facility] Bilirubin [Mass/Vol] 0.60 mg/dL 0.20-1.00 [facility] Comment on above: For patients on eltr ombopag therapy, use of Dimension [place] TBIL is not recommended. Chloride [Moles/Vol] 108 mmol/L 98-107 [facility] Cholesterol [Mass/Vol] 162 mg/dL <200 [facility] Comment on above: <200 mg/dL Desirable 200-240 mg/dL Borderline >240 mg/dL High Risk Eosinophils/100 WBC (Bld) 3.8 % 0-5 [facility] Glucose [Mass/Vol] 81 mg/dL 74-106 [facility] Neutrophils (Bld) [#/Vol] 4.6 10*3/uL 2.0-7.7 [facility] Neutrophils/100 WBC (Bld) 63.0 % 47-70 [facility] Potassium [Moles/Vol] 3.9 mmol/L 3.5-5.1 [facility] Protein [Mass/Vol] 7.0 g/dL 6.4-8.2 [facility] Sodium [Moles/Vol] 139 mmol/L 136-145 [facility] Triglyceride [Mass/Vol] 128 mg/dL <199 [facility] Comment on above: The drugs N-Acetylcy steine and Metamizole may falsely depress this assay.Serum Triglycerides Reference Interval Normal <150 mg/dL Borderline high 150 - 199 mg/dL High 200 - 499 mg/dL Very High > or = 500 mg/dL WBC (Bld) [#/Vol] 7.3 10*3/uL 4.4-11.0 [facility] Blood erythrocytes count (nu mber/volume)Ordered By: Oleksandr Katz on 05-31-2023 RBC (Bld) [#/Vol] 4.66 10*6/uL 4.2-5.4 [facility] Blood hemoglobin measurement (mass/volume)Ordered By: Oleksandr Katz on 05-31-2023 Hemoglobin (Bld) [Mass/Vol] 13.4 g/dL 12.0-15.0 [facility] Blood lymphocytes/100 leukoc ytesOrdered By: Oleksandr Katz on 05-31-2023 Lymphocytes/100 WBC (Bld) 25.3 % 19-41 [facility] Blood monocytes/100 leukocyt esOrdered By: Oleksandr Katz on 05-31-2023 Monocytes/100 WBC (Bld) 7.1 % 0-10 [facility] Blood platelet mean volumeOr dered By: Oleksandr Katz on 05-31-2023 Platelet mean volume (Bld) [Entitic vol] 10.3 fL 6.2-12.0 [facility] Determination of erythrocyte mean corpuscular volume (MCV)Ordered By: Oleksandr Katz on 05-31-2023 MCV (RBC) [Entitic vol] 91.0 fL 81-99 [facility] Hematocrit Auto (Bld) [Volum e fraction]Ordered By: Oleksandr Katz on 05-31-2023 Hematocrit (Bld) [Volume fraction] 42.4 % 37-47 [facility] - Chemistry and C hemistry - challengeOrdered By: Oleksandr Katz on 05-31-2023 ALP [Catalytic activity/Vol] 49 U/L 45-117 [facility] ALT [Catalytic activity/Vol] 33 U/L 13-56 [facility] CO2 [Moles/Vol] 27.0 mmol/L 21.0-32.0 [facility] Globulin (S) [Mass/Vol] 3.5 g/dL 2.2-4.2 [facility] Urea nitrogen/Creatinine [Mass ratio] 22.5 mg/mg 10-20 [facility] - Hematology and Cell countsOrdered By: Oleksandr Katz on 05-31-2023 Erythrocyte distribution width (RBC) [Entitic vol] 41.5 fL 35.1-43.9 [facility] Erythrocyte distribution width (RBC) [Ratio] 12.6 % 11.6-14.6 [facility] Immature granulocytes/100 WBC (Bld) 0.300 % 0.0-0.9 [facility] Comment on above: IG% - Immature Granu locytes (promyelocytes, myelocytes and metamyelocytes) > 1% indicates that a LEFT SHIFT is Present. MCH (RBC) [Entitic mass] 28.8 pg 27.0-32.0 [facility] Nucleated RBC/100 WBC (Bld) [Ratio] 0 % 0-5 [facility] MCHC Auto (RBC) [Mass/Vol]Or dered By: Oleksandr Katz on 05-31-2023 MCHC (RBC) [Mass/Vol] 31.6 g/dL 32-36 [facility] No Panel InformationOrdered By: Oleksandr Katz on 05-31-2023 Estimated GFR (MDRD) Amer 141 mL/min >60 [facility] Comment on above: GFR Calc Estimated GFR (MDRD) Non-Af Amer 117 mL/min >60 [facility] Comment on above: Non- GFR Calc Platelets bldOrdered By: Chelsy Katz on 05-31-2023 Platelets (Bld) [#/Vol] 271 10*3/uL 150-450 [facility] Serum or plasma albumin theresa urement (mass/volume)Ordered By: Oleksandr Katz on 05-31-2023 Albumin [Mass/Vol] 3.5 g/dL 3.2-5.0 [facility] Serum or plasma albumin/glob ulin mass ratioOrdered By: Oleksandr Katz on 05-31-2023 Albumin/Globulin [Mass ratio] 1.0 {ratio} 0.9-2.4 [facility] Serum or plasma calcium theresa urement (mass/volume)Ordered By: Oleksandr Katz on 05-31-2023 Calcium [Mass/Vol] 8.4 mg/dL 8.5-10.1 [facility] Serum or plasma cholesterol in HDL measurement (mass/volume)Ordered By: Oleksandr Katz on 05-31-2023 Cholesterol in HDL [Mass/Vol] 43 mg/dL >40 [facility] Comment on above: The drugs N-Acetylcy steine and Metamizole may falsely depress this assay. Reference Range HDL <40 mg/dL Low HDL Cholesterol HDL >or= 60 mg/dL High HDL Cholesterol Serum or plasma cholesterol in VLDL measurement (mass/volume)Ordered By: Oleksandr Katz on 05-31-2023 Cholesterol in VLDL [Mass/Vol] 26 mg/dL 5-40 [facility] Serum or plasma creatinine m easurement (mass/volume)Ordered By: Oleksandr Katz on 05-31-2023 Creatinine [Mass/Vol] 0.62 mg/dL 0.55-1.02 [facility] Comment on above: The validity of the calculated GFR & GFRAA in patients over 70 years has not been determined. Clinical correlation is essential. Serum or plasma low density lipoprotein (LDL) cholesterol measurement (mass/volume)Ordered By: Oleksandr Katz on 05-31-2023 Cholesterol in LDL [Mass/Vol] 93 mg/dL 0-130 [facility] Serum or plasma urea nitroge n measurement (mass/volume)Ordered By: Oleksandr Katz on 05-31-2023 Urea nitrogen [Mass/Vol] 14 mg/dL 7-18 [facility] Thin prep Papanicolaou smear with manual screeningOrdered By: Oleksandr Katz on 05-31-2023 Thin prep Papanicolaou smear with manual screening 14 U/L 15-37 [facility] Thin prep Papanicolaou smear with manual screening 4 5-15 [facility] Cervical or vagninal specime n microscopic examination by cytology stain (reported ason 06-18-2022 Cytology report Cyto stain Doc (Cvx/Vag) Comment . [facility] Work Phone: Comment on above: The Pap [...] DNA Probe+sig amp Ql (Cvx) Negative Negative [facility] Work Phone: Comment on above: This nucleic acid am plification test detects fourteen high-risk HPV types (16,18,31,33,35,39,45,51,52,56,58,59,66,68)without differentiation. Laboratory - Cytologyon 06-04 Elevator Erector Helper Cyto stain Nom (Cvx/Vag) [ID] Comment . [facility] Work Phone: Comment on above: Donna Celeste ytotechnologist (ASCP) Laboratory - Miscellaneous t estson 06-18-2022 Service comment (Unsp spec) [Interp] Comment . [facility] Work Phone: Comment on above: This liquid based Th inPrep(R) pap test was screened withthe use of an image guided system. Service comment (Unsp spec) [Interp] . . [facility] Work Phone: Liquid-based cerv Pap + CT/G C by VIJAY w reflex to high-risk HPV for ASCUSon 06-18-2022 Cytology report Cyto stain.thin prep Doc (Cvx/Vag) Comment . [facility] Work Phone: Comment on above: Criteria not met, HP V Genotype not performed.Performed at: [address], [place], [place] [id number] Director: Lizbeth Rodrigez MD, Phone: [phone] at: =G - [facility] [place] [id number] Director: Lizbeth Rodrigez MD, Phone: [phone] No Panel Informationon 06-18 Pathology report final diagnosis Narrative Comment . [facility] Work Phone: Comment on above: NEGATIVE FOR INTRAEP ITHELIAL LESION OR MALIGNANCY. STREP A MOLECULAR (POC)on Procedural Control Valid [facility] Strep A (POCT) Negative Negative [facility] CNOVon 12-14-2021 CNOV Office Visit (UCWSTR) REA DAHL ([id number]) 1990 F Date Time Provider Department 12/14/21 6:30 PM CARMELA SUN [facility] During your visit today, we recorded the [...] Postinflammatory hyperpigmentation - Seasonal allergies 05/16/2021 Seeing [place] [facility] - Sebaceous cyst PAST SURGICAL HISTORY [...] TOPICAL CREAM Agrees to plan Carmela Sun APRN.AUTOMATION CONTROL INTEGRATOR Referring Provider: SELF [200] Allergies As of Date: 12/14/2021 Noted Allergy Reaction ANIMAL DANDER 01/16/2016 3 - Cough Comments: Nasal congestion DUST 01/16/2016 14 - Other: See Comments Comments: Nasal congestion GRASS POLLEN 01/16/2016 3 - Cough Comments: Nasal congestion KARIVA (DESOGESTREL-ETHINYL ESTRA*04/27/2020 14 - Other: See Comments Comments: Mood swings, weight gain Date Reviewed: 12/14/2021 Reviewed by: Carmela Sun APRN.AUTOMATION CONTROL INTEGRATOR - Fully Assessed Reason for Visit: Rash [...] have been reviewed today /03/02/2007 Annika Mullins [facility] All medications have been reviewed today /03/02/2007 Annika Mullins [facility] Problem List As Of Date 12/14/2021 Noted [...] MIKEL SUN (more content not included)... [facility] Franky 12-14-2021 CNPN Telephone (FAMPWS) REA DAHL ([id number]) 1990 F Date Time Provider [facility] your visit today, we recorded the following information about you: Luana Sneed RN 12/14/2021 3:38 PM Signed Pt called in and reports she has Poison Lucille on her arms. She states her mom get Mometasone Furoate a topical steroid, that they have used with success before. Pt asking if provider would be willing to send in a prescription for her to [facility] in [place], and if it would be safe to [...] Signed Advise patient to come into the [facility] care to be seen and evaluated. [...] have been reviewed today /03/02/2007 Annika Mullins [facility] All medications have been reviewed today /03/02/2007 Annika Mullins [facility] Problem List As Of Date 12/14/2021 Noted Resolved Abdominal pain, unspecified site [R10.9] 06/20/2006 07/16/2017 Pain in joint, ankle and foot [M25.579] 12/12/2007 07/16/2017 History of anxiety [Z86.59] 03/29/2015 Seasonal allergies [J30.2] 05/16/2021 Screening for diabetes mellitus [Z13.1] 05/16/2021 Encounter for lipid screening for cardiovascula*2021 Well adult exam [Z00.00] 11/14/2021 Palpitations [R00.2] 11/14/2021 Encounter Status:Closed by CARLOS ALBERTO WAN on 12/14/21 [facility] Franky 12-12-2021 YANELISN Telephone (FAMPWS) REA DAHL ([id number]) 1990 F Date Time Provider Department 12/12/21 [...] gain Date Reviewed: 11/14/2021 Reviewed by: Benson Dsa MD - Fully Assessed Reason for Visit: Results [95] Prescriptions as of 12/12/2021 - vit/iron fum/folic ac (-FOLIC ACID ORAL) Take by mouth once daily. - fexofenadine (TIFFANY) 180 mg ORAL tablet Take one(1) tablet daily. Meds Comments as of 03/02/2007: All medications have been reviewed today /03/02/2007 Annika Mullins IT QUALITY ANALYST All medications have been reviewed today /03/02/2007 [...] by CARLA VALVERDE LPN on 12/12/21 [facility] HGB A1Con 12-11-2021 Average glucose Estimated from glycated hemoglobin (Bld) [Mass/Vol] 111 mg/dL [facility] Comment on above: Order Comment: Bernice blank Type: BLOOD SPECIMEN Ordering Facility: [facility] Address: [address] [place] [address] Result Comment: eAG: (Estimated average glucose) is a calculated value from HgbA1c and is artist's representative of the average blood glucose level in the last 2-3 month period. Performed By: #### L QUINTIN, 3015-10, FT4 #### [facility] CLIA [id number] [address] [place] [address] [place] HbA1c (Bld) [Mass fraction] 5.5 % Normal 4.3-5.6 [facility] Comment on above: Order Comment: Bernice blank Type: BLOOD SPECIMEN Ordering Facility: [facility] Address: [address] [place] [address] Result Comment: Amer [place] Diabetes Association guidelines indicate that patients with HgbA1c in the range 5.7-6.4% are at increased risk for development of diabetes, and intervention by lifestyle modification may be beneficial. HgbA1c greater or equal to 6.5% is considered diagnostic of diabetes. Performed By: #### L QUINTIN, 3, FT4 #### [facility] CLIA [id number] [address] [place] [address] [place] LIPID PANEL, NONFASTINGon Cholesterol [Mass/Vol] 178 mg/dL Normal <200 [facility] Comment on above: Order Comment: Bernice blank Type: BLOOD SPECIMEN Ordering Facility: [facility] Address: [address] [place] [address] Result Comment: <200 mg/dL, Desirable 200-239 mg/dL, Borderline high >239 mg/dL, High Performed By: #### L IPNF, 6-3, FT4 #### [facility] CLIA [id number] OF [facility] HDL CHOLESTEROL, NF 41 mg/dL Normal >39 [facility] Comment on above: Order Comment: Bernice blank Type: BLOOD SPECIMEN Ordering Facility: [facility] Address: [address] [place] [address] Result Comment: 40-5 9 mg/dL, Acceptable >59 mg/dL, High: Negative risk factor for coronary heart disease <40 mg/dL, Low: Positive risk factor for coronary heart disease Performed By: #### L IPNF, 6-3, FT4 #### [facility] CLIA [id number] [address] [place] [address] LDL CHOLESTEROL, NF 105 mg/dL High <100 [facility] Comment on above: Order Comment: Bernice blank Type: BLOOD SPECIMEN Ordering Facility: [facility] Address: [address] [place] [address] Result Comment: <100 mg/dL, Optimal 100-129 mg/dL, Near optimal/above optimal 130-159 mg/dL, Borderline high 160-189 mg/dL, High >189 mg/dL, Very high Secondary prevention optimal LDL Cholesterol levels are recommended to be < 70 mg/dL Performed By: #### L IPNF, 6-3, FT4 #### [facility] CLIA [id number] [address] [place] [address] LDL/HDL RATIO, NF 2.56 mg/dL High <2.54 [facility] Comment on above: Order Comment: Bernice abhay Type: BLOOD SPECIMEN Ordering Facility: [facility] Address: [address] [place] [address] Result Comment: Refe rence: 1. National Cholesterol Education Program ATP III Guideline At-A-Glance Quick Desk Reference: National Heart, Lung, and Blood [place]. National Institutes of Health. 2001: NIH Publication No. 01-3305. 2. An International Atherosclerosis Society position paper: global recommendations for the management of dyslipidemia: executive summary, Atherosclerosis. 2014: 232(2):410-413. Performed By: #### L QUINTIN, 3015-3, FT4 #### [facility] CLIA [id number] [address] [place] [address] OF [facility] NON HDL CHOL, NF 137 mg/dL High <130 [facility] Comment on above: Order Comment: Bernice blank Type: BLOOD SPECIMEN Ordering Facility: [facility] Address: [address] [place] [address] Result Comment: <130 mg/dL, Optimal 130-159 mg/dL, Near optimal/above optimal 160-189 mg/dL, Borderline high 190-219 mg/dL, High >219 mg/dL, Very high Secondary prevention optimal non HDL Cholesterol levels are recommended to be <100 mg/dL Performed By: #### L QUINTIN, 3015-3, FT4 #### [facility] CLIA [id number] [address] [place] [address] T CHOL/HDL RATIO NF 4.34 mg/dL Normal <5.10 [facility] Comment on above: Order Comment: Bernice blank Type: BLOOD SPECIMEN Ordering Facility: [facility] Address: [address] [place] [address] Performed By: #### L QUINTIN, 3015-3, FT4 #### [facility] CLIA [id number] [address] [place] [address] OF [place] TRIGLYCERIDES, NF 160 mg/dL High <150 [facility] Comment on above: Order Comment: Bernice blank Type: BLOOD SPECIMEN Ordering Facility: [facility] Address: [address] [place] [address] Result Comment: <150 mg/dL, Normal 150-199 mg/dL, Borderline high 200-499 mg/dL, High >499 mg/dL, Very high Performed By: #### L QUINTIN, 3015-3, FT4 #### [facility] CLIA [id number] [address] [place] [address] [place] VLDL CHOLESTEROL, NF 32 mg/dL High <30 [facility] Comment on above: Order Comment: Bernice blank Type: BLOOD SPECIMEN Ordering Facility: [facility] Address: [address] [place] [address] Performed By: #### L IPNF, 3016-3, FT4 #### [facility] CLIA [id number] [address] [place] [address] [place] T4 FREE/FREE THYROXon 2021 Free T4 [Mass/Vol] 0.9 ng/dL Normal 0.9-1.7 [facility] Comment on above: Order Comment: Bernice blank Type: BLOOD SPECIMEN Ordering Facility: [facility] Address: [address] [place] [address] Performed By: #### L IPNF, 3016-3, FT4 #### [facility] CLIA [id number] [address] [place] [address] [place] TSH SerPl-aCncon 12-11-2021 TSH Qn 1.210 m[IU]/L Normal 0.270-4.200 [facility] Comment on above: Order Comment: Bernice blank Type: BLOOD SPECIMEN Ordering Facility: [facility] Address: [address] [place] [address] Result Comment: If t he patient is , TSH reference range varies by gestational period: First Trimester (weeks 9-12): 0.180-2.990 mIU/L Second Trimester: 0.110-3.980 mIU/L Third Trimester: 0.480-4.710 mIU/L Carroll Wheeler et al. A Practical Approach for the Verifications and Determination of Site- and Trimester-Specific Reference Intervals for Thyroid Function tests in . Thyroid, 2019:29:3:412-420. Denny E, et al. 2017 Guidelines of the [place] Thyroid Association for the Diagnosis and Management of Thyroid Disease during and the . Thyroid, 2017:27:3:315-389. Performed By: #### L [facility], 3016-3, FT4 #### [facility] CLIA [id number] [address] [place] [address] [place] CNOVon 11-14-2021 CNOV Office Visit (FAMPWS) REA DAHL ([id number]) 1990 F Date Time Provider Department 11/14/21 [...] Postinflammatory hyperpigmentation - Seasonal allergies 05/16/2021 Seeing [facility] - Sebaceous cyst Previous Surgical History [...] or tenderness. (more content not included)... [facility] (FAMPWS) REA DAHL ([id number]) 1990 F Date Time Provider Department 07/04/21 [facility] visit today, we recorded the [...] have been reviewed today /03/02/2007 Annika Mullins IT QUALITY ANALYST All medications have been reviewed today /03/02/2007 Annika Mullins IT QUALITY ANALYST Problem List As Of Date 07/04/2021 Noted Resolved Abdominal pain, unspecified site [R10.9] 06/20/2006 07/16/2017 Pain in joint, ankle and foot [M25.579] 12/12/2007 07/16/2017 History of anxiety [Z86.59] 03/29/2015 Seasonal allergies [J30.2] 05/16/2021 Screening for diabetes mellitus [Z13.1] 05/16/2021 Encounter for lipid screening for cardiovascula*2020 Encounter Status:Closed by FLORINDA ALVAREZ MA on 07/04/21 [facility] Franky 07-03-2021 CNPN Telephone (FAMPWS) DAHLREA GRAF ([id number]) 1990 F Date Time Provider Department 07/03/21 [...] test - result: Positive. We did call [facility] for advice, and asked that you be informed - hopefully you've received the triage nurse's report (gathered by phone). This message is to ask for your insight and, if applicable, assistance in getting Cherry the antibody infusion that many friends and relations are recommending. The night nurse tells me that Cherry will first need a COVID-positive test from the Urgent Care lab, or [facility] lab; we'll plan to go in [...] a call with any time-sensitive instructions at [phone]; I won't have many chances to check [...] have been reviewed today /03/02/2007 Annika Mullins IT QUALITY ANALYST All medications have been reviewed today /03/02/2007 Annika Mullins IT QUALITY ANALYST Problem List As Of Date 07/03/2021 Noted Resolved Abdominal pain, unspecified site [R10.9] 06/20/2006 07/16/2017 Pain in joint, ankle and foot [M25.579] 12/12/2007 07/16/2017 History of anxiety [Z86.59] 03/29/2015 Seasonal allergies [J30.2] 05/16/2021 Screening for diabetes mellitus [Z13.1] 05/16/2021 Encounter for lipid screening for cardiovascula*2020 Encounter Status:Closed by FLORINDA ALVAREZ MA on 07/03/21 Normal [facility] COVID w FLU A+B Routon 07-03 Influenza A PCR Negative Normal [facility] Comment on above: Performed By: #### L QUINTIN 3016-3, FT4 #### [facility] CLIA [id number] [address] [place] [address] [place] Influenza B PCR Negative Normal [facility] Comment on above: Performed By: #### L IPNF, 3016-3, FT4 #### [facility] CLIA [id number] [address] [place] [address] [place] SARS-CoV-2 (COVID-19) RNA VIJAY+probe Ql (Unsp spec) UPPER RESPIRATORY TRACT SWAB Normal [facility] Comment on above: Performed By: #### L QUINTIN, 3016-3, FT4 #### [facility] CLIA [id number] [address] [place] [address] [place] SARS-CoV-2 (COVID-19) RNA VIJAY+probe Ql (Unsp spec) Positive for COVID19 (SARS CoV2) by RT-PCR or equivalent method. Critically abnormal Negative for COVID19 (SARS CoV2) by RT-PCR or equivalent method. [facility] Comment on above: Result Comment: This test was developed and its performance characteristics determined by [facility]'s [facility] [place]. This test has been authorized by FDA under an Emergency Use Authorization (EUA). This test has been validated in accordance with the FDA's Guidance Document Policy for Diagnostics Testing in Laboratories Certified to Perform High Complexity Testing under CLIA prior to Emergency use Authorization for Coronavirus Disease 2019 during the Public Health Emergency issued on October 02, 2019. Test performed by [facility], [facility] [place], [address] [place] [address]. Performed By: #### L QUINTIN, 3016-3, FT4 #### [facility] CLIA [id number] [address] [place] [address] [place] Franky 05-24-2021 YANELISN Telephone ([facility]) REA DAHL ( ) 1990 F Date Time Provider Department 05/24/21 [facility] During your visit today, we recorded [...] have been reviewed today /03/02/2007 Annika Mullins IT QUALITY ANALYST All medications have been reviewed today /03/02/2007 Annika Mullins IT QUALITY ANALYST Problem List As Of Date 05/24/2021 Noted Resolved Abdominal pain, unspecified site [R10.9] 06/20/2006 07/16/2017 Pain in joint, ankle and foot [M25.579] 12/12/2007 07/16/2017 History of anxiety [Z86.59] 03/29/2015 Seasonal allergies [J30.2] 05/16/2021 Screening for diabetes mellitus [Z13.1] 05/16/2021 Encounter for lipid screening for cardiovascula*2020 Encounter Status:Closed by FLORINDA ALVAREZ MA on 05/24/21 Normal [facility] Hemoglobin A1con 05-22-2021 Glucose [Mass/Vol] 97 mg/dL Normal [facility] Comment on above: Result Comment: eAG: (Estimated average glucose) is a calculated value from HgbA1c and is artist's representative of the average blood glucose level in the last 2-3 month period. Performed By: #### L IPNF, HBA1C #### [facility] [place] [facility] [address] [id number] HbA1c (Bld) [Mass fraction] 5.0 % Normal 4.3-5.6 [facility] Comment on above: Result Comment: [facility] Diabetes Association guidelines indicate that patients with HgbA1c in the range 5.7-6.4% are at increased risk for development of diabetes, and intervention by lifestyle modification may be beneficial. HgbA1c greater or equal to 6.5% is considered diagnostic of diabetes. Performed By: #### L IPNF, HBA1C #### [facility] [place] [facility] [address] [id number] Lipid Panel, Nonfaston 05-22 Cholesterol [Mass/Vol] 185 mg/dL Normal <200 [facility] Comment on above: Result Comment: <200 mg/dL, Desirable 200-239 mg/dL, Borderline high >239 mg/dL, High Performed By: #### L IPNF, HBA1C #### [place] [address] [place] [address] HDL Cholesterol, NF 45 mg/dL Normal >39 [facility] Comment on above: Result Comment: 40-5 9 mg/dL, Acceptable >59 mg/dL, High: Negative risk factor for coronary heart disease <40 mg/dL, Low: Positive risk factor for coronary heart disease Performed By: #### L IPNF, HBA1C #### [facility] [place] [facility] [address] [place], [place] [address] LDL Cholesterol, NF 103 mg/dL High <100 [facility] Comment on above: Result Comment: <100 mg/dL, Optimal 100-129 mg/dL, Near optimal/above optimal 130-159 mg/dL, Borderline high 160-189 mg/dL, High >189 mg/dL, Very high Secondary prevention optimal LDL Cholesterol levels are recommended to be < 70 mg/dL Performed By: #### L IPNF, HBA1C #### [facility] [place] [facility] [address] [address] LDL/HDL Ratio, NF 2.29 mg/dL Normal <2.54 [facility] Comment on above: Result Comment: Juan Luis westbrook: 1. National Cholesterol Education Program ATP III Guideline At-A-Glance Quick Desk Reference: National Heart, Lung, and Blood [place]. National Institutes of Health. 2001: NIH Publication No. 01-3305. 2. An International Atherosclerosis Society position paper: global recommendations for the management of dyslipidemia: executive summary, Atherosclerosis. 2014: 232(2):410-413. Performed By: #### L IPNF, HBA1C #### [facility] [place] [facility] [address] [phone] Non HDL Chol, NF 140 mg/dL High <130 [facility] Comment on above: Result Comment: <130 mg/dL, Optimal 130-159 mg/dL, Near optimal/above optimal 160-189 mg/dL, Borderline high 190-219 mg/dL, High >219 mg/dL, Very high Secondary prevention optimal non HDL Cholesterol levels are recommended to be < 100 mg/dL Performed By: #### L IPNF, HBA1C #### [facility] [place] [facility] [address] [phone] T Chol/HDL Ratio NF 4.11 mg/dL Normal <5.10 [facility] Comment on above: Performed By: #### L IPNF, HBA1C #### [facility] [address] [phone] Triglycerides, NF 185 mg/dL High <150 [facility] Comment on above: Result Comment: <150 mg/dL, Normal 150-199 mg/dL, Borderline high 200-499 mg/dL, High >499 mg/dL, Very high Performed By: #### L IPNF, HBA1C #### [facility] [address] [address] VLDL Cholesterol, NF 37 mg/dL High <30 [facility] Comment on above: Performed By: #### L IPNF, HBA1C #### [facility] [address] [place], [place] [address] CNOVon 05-16-2021 CNOV Office Visit (FAMPWS) REA DAHL ([id number]) 1990 F Date Time Provider Department 05/16/21 5:00 [facility] During your visit today, we recorded the following information about you: Pulse Respiration Blood pressure Weight 78/minute 14/minute 122/84 105.7 kg Benson Das MD 05/16/2021 9:12 PM Signed Chief Complaint Patient presents with: Transition [facility] Care: [facility] HPI Rea Liam Nabila is a 30 [...] Postinflammatory hyperpigmentation - Seasonal allergies 05/16/2021 Seeing [facility] - Sebaceous cyst Previous Surgical History [...] Nasal congest (more content not included)... Normal [facility] Vital Signs Date Time Vital Sign Value Performing Clinician Taryn alicea 01-03-2025 09:54-0400 Body height 175.9 cm Oleksandr Katz MD Work Phone: [facility] 01-03-2025 09:54-0400 Body mass index (BMI) [Ratio] 38.1 kg/m2 Oleksandr Katz MD Work Phone: [facility] 01-03-2025 09:54-0400 Body weight 117.93 kg Oleksandr Katz MD Work Phone: [facility] 01-03-2025 09:54-0400 Diastolic blood pressure 78 mm[Hg] Oleksandr Katz MD Work Phone: [facility] 01-03-2025 09:54-0400 Systolic blood pressure 128 mm[Hg] Oleksandr Katz MD Work Phone: [facility] 12-20-2024 10:25-0400 Body height 175.9 cm Oleksandr Katz MD Work Phone: [facility] 12-20-2024 10:18-0400 Body mass index (BMI) [Ratio] 38.1 kg/m2 Oleksandr Katz MD Work Phone: [facility] 12-20-2024 10:18-0400 Body weight 117.19 kg Oleksandr Katz MD Work Phone: 7(535)086-248826 [place] [address] 12-20-2024 10:18-0400 Diastolic blood pressure 51 mm[Hg] Oleksandr Katz MD Work Phone: 3(559)882-355626 [place] [address] 12-20-2024 10:18-0400 Systolic blood pressure 110 mm[Hg] Oleksandr Katz MD Work Phone: 7(326)447-549926 [place] [address] 12-06-2024 09:45-0400 Body mass index (BMI) [Ratio] 37.5 kg/m2 Oleksandr Katz MD Work Phone: 5(202)120-240526 [place] [address] 12-06-2024 09:45-0400 Body weight 116.11 kg Oleksandr Katz MD Work Phone: 0(165)388-709026 [place] [address] 12-06-2024 09:45-0400 Diastolic blood pressure 80 mm[Hg] Oleksandr Katz MD Work Phone: 1(971)482-081126 [place] [address] 12-06-2024 09:45-0400 Systolic blood pressure 123 mm[Hg] Oleksandr Katz MD Work Phone: 6(177)082-333226 [place] [address] 11-08-2024 10:13-0400 Body height 175.9 cm Oleksandr Katz MD Work Phone: 3(427)084-865826 [place] [address] 11-08-2024 10:10-0400 Body mass index (BMI) [Ratio] 37.1 kg/m2 Oleksandr Katz MD Work Phone: 0(541)521-225126 [place] [address] 11-08-2024 10:10-0400 Body weight 114.87 kg Oleksandr Katz MD Work Phone: 3(882)948-582126 [place] [address] 11-08-2024 10:10-0400 Diastolic blood pressure 75 mm[Hg] Oleksandr Katz MD Work Phone: [facility] 11-08-2024 10:10-0400 Systolic blood pressure 123 mm[Hg] Oleksandr Katz MD Work Phone: [facility] 10-15-2024 11:02-0400 Body mass index (BMI) [Ratio] 36.1 kg/m2 Oleksandr Katz MD Work Phone: [facility] 10-15-2024 11:02-0400 Body weight 111.75 kg Oleksandr Katz MD Work Phone: [facility] 10-15-2024 11:02-0400 Diastolic blood pressure 76 mm[Hg] Oleksandr Katz MD Work Phone: [facility] 10-15-2024 11:02-0400 Systolic blood pressure 118 mm[Hg] Oleksandr Katz MD Work Phone: [facility] 09-23-2024 10:18-0500 Body mass index (BMI) [Ratio] 35.8 kg/m2 Oleksandr Katz MD Work Phone: [facility] 09-23-2024 10:18-0500 Body weight 110.9 kg Oleksandr Katz MD Work Phone: [facility] 09-23-2024 10:18-0500 Diastolic blood pressure 76 mm[Hg] Oleksandr Katz MD Work Phone: [facility] 09-23-2024 10:18-0500 Systolic blood pressure 112 mm[Hg] Oleksandr Katz MD Work Phone: [facility] 08-16-2024 11:22-0500 Body mass index (BMI) [Ratio] 36 kg/m2 Oleksandr Katz MD Work Phone: [facility] 08-16-2024 11:22-0500 Body weight 111.58 kg Oleksandr Katz MD Work Phone: [facility] 08-16-2024 11:22-0500 Diastolic blood pressure 79 mm[Hg] Oleksandr Katz MD Work Phone: [facility] 08-16-2024 11:22-0500 Systolic blood pressure 117 mm[Hg] Oleksandr Katz MD Work Phone: [facility] 05-15-2022 13:43-0400 Body temperature 98.1 [degF] Benson Das MD Work Phone: [facility] 05-15-2022 13:43-0400 Body weight 107.5 kg Benson Das MD Work Phone: [facility] 05-15-2022 13:43-0400 Diastolic blood pressure 80 mm[Hg] Benson Das MD Work Phone: [facility] 05-15-2022 13:43-0400 Heart rate 72 /min Benson Das MD Work Phone: [facility] 05-15-2022 13:43-0400 Respiratory rate 14 /min Benson Das MD Work Phone: [facility] 05-15-2022 13:43-0400 Systolic blood pressure 126 mm[Hg] Benson Das MD Work Phone: [facility] 11-14-2021 15:42-0400 Body height 170.2 cm Benson Das MD Work Phone: [facility] 11-14-2021 15:42-0400 Body weight 106.14 kg Benson Das MD Work Phone: [facility] 11-14-2021 15:42-0400 Diastolic blood pressure 70 mm[Hg] Benson Das MD Work Phone: [facility] 11-14-2021 15:42-0400 Heart rate 68 /min Benson Das MD Work Phone: [facility] 11-14-2021 15:42-0400 Respiratory rate 16 /min Benson Das MD Work Phone: [facility] 11-14-2021 15:42-0400 Systolic blood pressure 112 mm[Hg] Benson Das MD Work Phone: [facility] 07-04-2021 18:50-0500 Body temperature 98.6 [degF] [facility] Work Phone: 07-04-2021 18:50-0500 Diastolic blood pressure 83 mm[Hg] [facility] Work Phone: 07-04-2021 18:50-0500 Heart rate 85 /min [facility] Work Phone: 07-04-2021 18:50-0500 Respiratory rate 16 /min [facility] Work Phone: 07-04-2021 18:50-0500 SaO2% (BldA) [Mass fraction] 100 % [facility] Work Phone: 07-04-2021 18:50-0500 Systolic blood pressure 121 mm[Hg] [facility] Work Phone: 07-04-2021 17:33-0500 Body height 177.8 cm [facility] Work Phone: 07-04-2021 17:33-0500 Body mass index (BMI) [Ratio] 33 kg/m2 [facility] Work Phone: 07-04-2021 17:33-0500 Body weight 104.32 kg [facility] Work Phone: Encounters Encounter Date Encounter Type Care Provider Facility Start: 01-03-2025 End: 01-03-2025 Patient encounter procedure Marvin Garner CNM -[facility] Work Phone: Start: 01-03-2025 End: 01-03-2025 ambulatory Oleksandr Katz MD Work Phone: [facility] Work Phone: Start: 12-20-2024 End: 12-20-[address] Sally Cerna MD -[facility] Work Phone: Start: 12-20-2024 End: 12-20-2024 ambulatory Oleksandr Katz MD Work Phone: [facility] Work Phone: Start: 12-06-2024 End: 12-06-2024 Patient encounter procedure Radha WADE -[facility] Work Phone: Start: 12-06-2024 End: 12-06-2024 ambulatory Oleksandr Katz MD Work Phone: [facility] Work Phone: Start: 12-06-2024 End: 12-06-2024 ambulatory Jeaneth Kramer Facility:[facility] Start: 11-08-2024 End: 11-08-[address] Jeaneth Kramer DO -[facility] Work Phone: Start: 11-08-2024 End: 11-08-2024 ambulatory Oleksandr Katz Facility:[facility] Start: 10-15-2024 End: 10-15-2024 Patient encounter procedure Morenita Dickerson [facility] -[facility] Work Phone: Start: 10-15-2024 End: 10-15-2024 ambulatory Morenita Dickerson Facility:[facility] Start: 09-30-2024 End: 09-30-2024 ambulatory CHRISTIANNE JUNE [facility] Start: 09-23-2024 End: 09-23-[address] Sally Cerna MD -[facility] Work Phone: Start: 09-23-2024 End: 09-23-2024 ambulatory Sally Cerna Facility:[facility] Start: 08-16-2024 End: 08-16-2024 Patient encounter procedure Marvin Garner [facility] -[facility] Work Phone: Start: 08-16-2024 End: 08-16-2024 ambulatory Oleksandr Katz Facility:[facility] Start: 08-16-2024 End: 08-16-2024 ambulatory Jeaneth Kramer Facility:[facility] Start: 07-19-2024 End: 07-19-2024 ambulatory Jeaneth Kramer Facility:[facility] Start: 07-19-2024 End: 07-19-2024 ambulatory Jeaneth Kramer Facility:[facility] Start: 07-09-2024 ambulatory Oleksandr Katz [facility] Start: 05-31-2023 End: 05-31-2023 ambulatory MD Oleksandr Katz Work Phone: [facility] Work Phone: Start: 05-31-2023 End: 05-31-2023 Patient encounter procedure MD Oleksandr Katz Work Phone: [facility]Laboratory Work Phone: Start: 04-28-2023 Non-patient / Non-visit MD Chelsy aKtz Work Phone: [facility] Start: 04-28-2023 End: 04-28-2023 Patient encounter procedure MD Oleksandr Katz Work Phone: [facility]Pulmonary Services/Neurology Work Phone: Start: 04-12-2023 End: 04-12-[address] Benson Das Work Phone: [facility] Work Phone: Start: 04-12-2023 End: 04-12-[address] Benson Das Work Phone: [facility] Work Phone: Start: 01-16-2023 Non-patient / Non-visit Dr. Nico Das Work Phone: [facility] Work Phone: Start: 06-18-2022 End: 06-18-2022 ambulatory [facility] Work Phone: Start: 06-18-2022 End: 06-18-2022 Patient encounter procedure [facility]Laboratory, Specimen Start: 05-16-2022 Telephone encounter Benson Das MD Work Phone: [facility] [place] Comment on above: Results Start: 05-15-2022 End: 05-15-2022 Patient encounter procedure Benson Das MD Work Phone: [facility] Comment on above: Pharyngitis, unspeci fied etiology (Primary Dx); Fatigue, unspecified type Start: 12-12-2021 Telephone encounter Benson Das MD Work Phone: [facility] Comment on above: Results Start: 11-14-2021 End: 11-14-2021 Patient encounter procedure Benson Das MD Work Phone: [facility] Comment on above: Well adult exam (Rosa ludin Dx); Palpitations; History of anxiety; Screening for diabetes mellitus; Encounter for lipid screening for cardiovascular disease Start: 11-14-2021 End: 11-14-2021 Patient encounter status Benson Das MD Work Phone: [facility] Start: 07-04-2021 End: 07-04-2021 [facility] Start: 01-09-2018 [facility] Facility: [id number] Procedures Date Procedure Procedure [...] section History of delivery, currently Radha Muhammad [employer] HAND-C H/O: section History of delivery, currently Dr. Sally Cerna MD H/O: section History of delivery, currently Marvin Garner CNM Plan of Treatment Date Care Activity Detail Author Start: 01-07-2026 Urine microalbumin profile DTAP,TDAP,TD (8 - Td or Tdap) [facility] Start: 08-01-2025 HPV TESTING HPV TESTING [facility] Start: 08-01-2025 PAP TESTING PAP TESTING [facility] Start: 02-25-2025 ambulatory Ambulatory Facility:[facility] Start: 05-16-2022 COVID-19 VACCINE (#1) COVID-19 VACCI NE (#1) [facility] Comment on above: Postponed from 10/08 (Declined at this time) Postponed from 04/10 (Declined at this time) Start: 05-16-2022 COVID-19 VACCINE (1) COVID-19 VACCIN E (1) [facility] Comment on above: Postponed from 10/08 (Declined at this time) Start: 05-15-2022 Adult depression screening assessment DEPRESSION SCREENING [facility] Start: 05-15-2022 End: 07-15-2022 CBC W Auto Differential panel - Blood [facility] Work Phone: Comment on above: Expected: 05/15/2022 , Expires: 07/15/2022 Start: 05-15-2022 End: 07-15-2022 Heterophile Ab [Presence] in Serum by Latex agglutination [facility] Work Phone: Comment on above: Expected: 05/15/2022 , Expires: 07/15/2022 Start: 05-15-2022 End: 07-15-2022 Thyrotropin [Units/volume] in Serum or Plasma [facility] Work Phone: Comment on above: Expected: 05/15/2022 , Expires: 07/15/2022 Start: 05-15-2022 End: 07-15-2022 Thyroxine (T4) free [Mass/volume] in Serum or Plasma [facility] Work Phone: Comment on above: Expected: 05/15/2022 , Expires: 07/15/2022 Start: 04-04-2022 Influenza vaccination [facility] Start: 11-14-2021 End: 01-14-2022 Hemoglobin A1c/Hemoglobin.total in Blood HGB A1C Lab Routine Well adult exam Screening for diabetes mellitus Expected: 11/14/2021, Expires: 01/14/2022 [facility] Work Phone: Comment on above: Expected: 11/14/2021 , Expires: 01/14/2022 Start: 11-14-2021 End: 01-14-2022 LIPID PANEL, NONFASTING LIPID PANEL, NONFASTING Lab Routine Well adult exam Encounter for lipid screening for cardiovascular disease Expected: 11/14/2021, Expires: 01/14/2022 [facility] Work Phone: Comment on above: Expected: 11/14/2021 , Expires: 01/14/2022 Start: 11-14-2021 End: 01-14-2022 T4 FREE/FREE THYROX T4 FREE/FREE THYROX Lab Routine Palpitations Expected: 11/14/2021, Expires: 01/14/2022 [facility] Work Phone: Comment on above: Expected: 11/14/2021 , Expires: 01/14/2022 Start: 11-14-2021 End: 01-14-2022 Thyrotropin [Units/volume] in Serum or Plasma TSH BLD Lab Routine Palpitations Expected: 11/14/2021, Expires: 01/14/2022 [facility] Work Phone: Comment on above: Expected: 11/14/2021 , Expires: 01/14/2022 Start: 08-04-2021 DEPRESSION ASSESSMENT DEPRESSION ASS ESSMENT [facility] Patient referral [facility] Work Phone: [facility] Immunizations Immunization Date Immunization Notes Care Provider Ochoa holder 12-20-2024 tetanus toxoid, redu yisel diphtheria toxoid, and acellular pertussis vaccine, adsorbed Oleksandr Katz MD Work Phone: [facility] 02-05-2021 tetanus toxoid, redu yisel diphtheria toxoid, and acellular pertussis vaccine, adsorbed [facility] 04-27-2020 influenza, injectabl e, quadrivalent, contains preservative Benson Das MD Work Phone: [facility] 06-15-2019 influenza, injectabl e, quadrivalent, contains preservative Benson Das MD Work Phone: [facility] 06-06-2018 influenza, injectabl e, quadrivalent, contains preservative Benson Das MD Work Phone: [facility] 05-26-2017 influenza, injectabl e, quadrivalent, contains preservative Benson Das MD Work Phone: [facility] Work Phone: 05-25-2016 influenza, injectabl e, quadrivalent, contains preservative Benson Das MD Work Phone: [facility] 01-08-2016 tetanus toxoid, redu yisel diphtheria toxoid, and acellular pertussis vaccine, adsorbed Benson Das MD Work Phone: [facility] Work Phone: 07-05-2015 influenza, injectabl e, quadrivalent, contains preservative Benson Das MD Work Phone: [facility] Work Phone: 06-01-2014 influenza, seasonal, injectable Benson Das MD Work Phone: [facility] 06-10-2013 influenza virus vaccine, unspecified formulation Benson Das MD Work Phone: [facility] 06-13-2012 influenza virus vaccine, unspecified formulation Benson Das MD Work Phone: [facility] 05-11-2011 influenza virus vaccine, unspecified formulation Benson Das MD Work Phone: [facility] 05-19-2010 influenza virus vaccine, unspecified formulation Benson Das MD Work Phone: [facility] Work Phone: 02-06-2007 human papilloma viru s vaccine, quadrivalent Benson Das MD Work Phone: [facility] Work Phone: 11-12-2006 Meningococcal, MCV4, unspecified conjugate formulation(groups A, C, Y and W-135) Benson Das MD Work Phone: [facility] Work Phone: 10-13-2006 human papilloma viru s vaccine, quadrivalent Benson Das MD Work Phone: [facility] Work Phone: 08-18-2006 human papilloma viru s vaccine, quadrivalent Benson Das MD Work Phone: [facility] Work Phone: 07-02-2006 influenza virus vaccine, unspecified formulation Benson Das MD Work Phone: [facility] Work Phone: 12-23-2005 diphtheria and tetan us toxoids, adsorbed for pediatric use Benson Das MD Work Phone: [facility] 06-11-2005 influenza virus vaccine, unspecified formulation Benson Das MD Work Phone: [facility] Work Phone: 07-24-2001 hepatitis B vaccine, pediatric or pediatric/adolescent dosage Benson Das MD Work Phone: [facility] Work Phone: 02-18-2001 hepatitis B vaccine, pediatric or pediatric/adolescent dosage Benson Das MD Work Phone: [facility] Work Phone: 01-19-2001 hepatitis B vaccine, pediatric or pediatric/adolescent dosage Benson Das MD Work Phone: [facility] Work Phone: 01-19-2001 measles, mumps and rubella virus vaccine Benson Das MD Work Phone: [facility] Work Phone: 10-17-1993 DTP-Haemophilus influenzae type b conjugate vaccine Benson Das MD Work Phone: [facility] Work Phone: 10-17-1993 poliovirus vaccine, inactivated Benson Das MD Work Phone: [facility] Work Phone: 05-30-1990 DTP-Haemophilus influenzae type b conjugate vaccine Benson Das MD Work Phone: [facility] Work Phone: 05-30-1990 poliovirus vaccine, inactivated Benson Das MD Work Phone: [facility] Work Phone: 01-15-1990 measles, mumps and rubella virus vaccine Benson Das MD Work Phone: [facility] Work Phone: 04-16-1989 DTP-Haemophilus influenzae type b conjugate vaccine Benson Das MD Work Phone: [facility] Work Phone: 04-16-1989 poliovirus vaccine, inactivated Benson Das MD Work Phone: [facility] Work Phone: 03-04-1989 DTP-Haemophilus influenzae type b conjugate vaccine Benson Das MD Work Phone: [facility] Work Phone: 03-04-1989 poliovirus vaccine, inactivated Benson Das MD Work Phone: [facility] Work Phone: 1990 DTP-Haemophilus influenzae type b conjugate vaccine Benson Das MD Work Phone: [facility] Work Phone: 1990 poliovirus vaccine, inactivated Benson Das MD Work Phone: [facility] Work Phone: Payers Date Payer Category Payer Medicaid [id number] 2024 Unknown [id number] 2024 Self-pay [id number] 2024 Unknown [id number] 2024 Unknown [id number] 2019 Unknown MMO MMO [employer] [id number] 2019-Present [phone] [address] [place] [address] PPO [id number] 2019 Unknown MMO MMO [employer] [id number] 2019-Present [phone] [address] [place] [address] PPO [id number] 1988 Unknown [id number] Unknown [id number] Unknown [id number] Unknown [id number] Unknown [id number] Unknown [id number] Unknown [id number] Unknown [id number] Unknown [id number] Unknown [id number] Unknown [id number] Unknown [id number] Unknown [id number] Unknown [id number] Unknown [id number] Unknown [id number] Unknown [id number] Social History Date Type Detail Facility Start: 07-04-2021 End: 09-12-2022 Tobacco smoking status WAIS Unknown if ever smoked [facility] Start: 1990 Sex Assigned At Female [facility] Start: 05-12-2022 End: 07-09-2024 Tobacco smoking status NHIS Never smoked tobacco [facility] Work Phone: Start: 11-14-2021 End: 05-15-2022 Alcohol intake Current non-drinker of alcohol (finding) [facility] Start: 05-15-2021 History SDOH Alcohol Frequency 2 [facility] Start: 05-15-2021 History SDOH Alcohol Std Drinks 1 [facility] Start: 05-15-2021 History SDOH Social Connections Phone 5 [facility] Start: 05-15-2021 History SDOH Social Connections Syn[employer] 3 [facility] Start: 05-15-2021 History SDOH Physica l Activity MPS 4 [facility] Start: 04-25-2020 Education 17 [facility] Start: 11-04-2021 End: 05-15-2022 Exposure to SARS-CoV-2 (event) Not sure [facility] Start: 05-12-2022 Tobacco use and exposure Smoke less tobacco non-user [facility] Work Phone: Mental Status Date Assessment Result Facility 07-04-2021 Cognitive function Awake;Alert;A ppropriate;Fol lows Commands [facility] Work Phone: Clinical Notes 12-12-2007 to 01-03-2025 Note Date & Type Note Facility 01-03-2025 Progress note [facility] 12-20-2024 Progress note [facility] 09-23-2024 Evaluation note Diagnosis Onset Date [...] Supervision of high-risk acute December 06 9:48am [facility] Work Phone: 1(966) 713-965802-20-2025 Evaluation note* Diagnosis Onset Date Resolution Status [...] high-risk acute December 20, 2024 1 0:14am [facility] Work Phone: 1(200) 768-543402-20-2025 Evaluation note* Diagnosis Onset Date Resolution Status [...] high-risk acute January 03, 2025 9 :50am [facility] Work Phone: 1(936) 364-801911-15-2022 NotePap Smear Specimen AdequacyNovember 2021 3:57pmComment.Satisfactory for evaluation. Endocervical and/or squamous metaplasticcells (endocervical component)are present.[facility] A[facility][id number] Work Phone: Comment on above:Satisfactory for evaluation. Endocervical and/or squamous metaplasticcells (endocervical component)are present.05-16-2022 Miscellaneous Notes* Telephone Encounter - Mary Jane Schneider LPN - 05/16/2022 4:09 PM EDT Patient notified. Verbalized understanding. * Telephone Encounter - Benson Das MD - 05/16/2022 3:36 PM EDT Let patient know the mono test was negative. The thyroid labs and CBC were normal. documented in this encounterTri[facility] History of Present illness Narrative* Benson Das MD - 05/15/2022 1:40 PM EDT Chief Complaint Patient presents with: Fatigue HPI Rea Dahl is a 31 year old female who presents here today for follow up from [facility]. Patient was seen in [facility] on 05/12/2022 with c/o congestion, facial pressure, [...] improving. Benson Das MD documented in this encounterTri[facility]05-13-2022 NoteHNO ID: [id number] Author: Carmela Sun APRN.AUTOMATION CONTROL INTEGRATOR Service: ? Author Type: Nurse Practitioner Type: [...] TOPICAL CREAM Agrees to plan Carmela Sun APRN.[facility]05-11-2022 Miscellaneous Notes * Telephone Encounter - [...] toreduce fat in diet. documented in this encounterTrihealth [facility]04-13-2022 NoteHNO ID: [id number] Author: Benson Das MD Service: ? Author [...] on 05/15/2022 PAP TESTI (more content not included)...[facility]04-13-2022 History of Present illness Narrative* Benson Das [...] issues. Benson Das MD documented in this encounterTrihealth [facility]10-13-2021 NoteHNO ID: [id number] Author: Benson Das MD Service: ? Author Type: Physician Type: Progress Notes Filed: 05/16/2021 9:12 PM Note Text: Chief Complaint Patient presents with: Transition Of Care: [facility] HPI Rea Dahl is a 30 year [...] PANEL, NONFASTING F/u 6 months SELENA Das, [facility]05-10-2008 History of Past illness Narrative* Problem Noted Date Resolved Date Pain in joint, ankle and foot 12/12/2007 Abdominal pain, unspecified site 06/20/2006 07/16/2017 documented as of this encounter (statuses as of 11/14/2021) [place] [address]-10-2008 History of Past illness Narrative* Problem Noted Date Resolved Date Pain in joint, ankle and foot 12/12/2007 Abdominal pain, unspecified site 06/20/2006 07/16/2017 documented as of this encounter (statuses as of 12/12/2021) [facility]05-10-2008 History of Past illness Narrative* Problem Noted Date Resolved Date Pain in joint, ankle and foot 12/12/2007 Abdominal pain, unspecified site 06/20/2006 07/16/2017 documented as of this encounter (statuses as of 05/15/2022) [facility]05-10-2008 History of Past illness Narrative* Problem Noted Date Resolved Date Pain in joint, ankle and foot 12/12/2007 Abdominal pain, unspecified site 06/20/2006 07/16/2017 documented as of this encounter (statuses as of 05/16/2022) [facility] HospitalEvaluation noteNo assessment information availableWCleveland Clinic [facility] Work Phone: Evaluation note* Diagnosis Well adult exam- Primary Routine general medical examination at a health care facility Palpitations History of anxiety Personal history of other mental disorder Screening for diabetes mellitus Encounter for lipid screening for cardiovascular disease Screening for lipoid disorders documented in this encounter [facility]* Diagnosis Pharyngitis, unspecified etiology- Primary Fatigue, unspecified type documented in this encounter [facility] HospitalProgress note Author Sally Cerna [facility] Note Date/Time December 20, 2024 10:32 am [facility] [address] [place] [address], [address] [place] [address] OFFICE VISIT Date of Service: 12/20/24 MR#: [id number] Acct: [id number] Name: REA DAHL Rep #: [id number] : 1990 Provider: Dr. Lionel Cerna MD Age/Sex: 34/F Location[place] [facility] Status: Signed Intake Vital Signs 07/19/24 10:31 12/06/24 09:45 12/20/24 10:18 12/20/24 10:25 Height 5 ft 9.25 in 5 ft 9.25 in 5 ft 9 in 5 ft 9.25 in Weight: 258 lb 6 oz BMI 38.1 BP 110/51 L Intake Visit Reasons: 30 wk ob Chin Strap Cutter Required: No Is patient in pain?: No [...] 1 current occupational status: unemployed current occupation: [employer] current occupational exposures/hazards: No pets and animals: [...] 3-4 times per week duration: 15-30 minutes/day leticia/scientology: Mandaeism seatbelt use: always do you feel safe [...] full term 8lbs Female 34 s rosi [facility] Dr Shiva Vasquez Jason Delivery Date: [...] Negative 165 -?-?-?-?-?-?-?-?-?-?-?-?- KW- no vb/crampi ng. [facility] US ordered. KW- no vb/cramping. [facility] US o rdered. discussed AFP 09/23/24 [...] with insurance to obtain additional images through [facility]. 11/08/24 -?-?-?-?-?-?-?-?-?-?-?-?- 24w 4d 253 lb [...] Performing Provider: Sally Cerna MD Performing Location: [facility] Administered by: Radha Morel on 12/20/24 10:28 Dose Route Admin Location Dispensed Lot Number Expiration Date NDC Straw Boss 0.5 mL IM Left Deltoid 0.5 mL [id number] 12/01/26 [id number] SANOF I-PASTEUR VIS Given Date VIS Provided [...] high risk , unspecified, third trimester Comment: [id number], RENAE 02/24/25, boy John PC: Marsha, : [...] Cosigner Signature: Date (if applicable) CC: ~ [facility] Work Phone: Progress note Author Marvin Garner [facility] Note Date/Time January 03, 2025 10:12 am [facility] [address] [place] [address], [address] [place] [address] OFFICE VISIT Date of Service: 01/03/25 MR#: [id number] Acct: [id number] Name: REA DAHL Rep #: [id number] : 1990 Provider: ANTHONY Garner Age/Sex: 34/F Location[place] [facility] Status: Signed Intake Vital Signs 08/16/24 11:22 12/20/24 10:25 01/03/25 09:54 Height 5 ft 9.25 in 5 ft 9.25 in 5 ft 9.25 in Weight: 260 lb BMI 38.1 BP 128/78 H Intake Visit Reasons: 32 wk ob Chief Complaint: 32wk OB Chin Strap Cutter Required: No Is patient in pain?: No [...] 1 current occupational status: unemployed current occupation: [employer] current occupational exposures/hazards: No pets and animals: [...] 3-4 times per week duration: 15-30 minutes/day leticia/scientology: Mandaeism seatbelt use: always do you feel safe [...] full term 8lbs Female 34 s rosi [facility] Dr Shiva Gomez Delivery Date: 04/02/21 [...] Negative 165 -?-?-?-?-?-?-?-?-?-?-?-?- KW- no vb/crampi ng. [facility] ordered. KW- no vb/cramping. [facility] o rdered. discussed AFP 09/23/24 [...] high risk , unspecified, third trimester Comment: [id number], RENAE 02/24/25, boy John PC: Marsha, : [...] Cosigner Signature: Date (if applicable) CC: ~ [facility] Work Phone: Reason for referral (narrative)No reason for referral information availableWCleveland Clinic [facility] Work Phone: Summary Purpose Family History No [...] No April 02 1 5:26am Power of Agricultural Engineering Technician No April 02 021 5:26am Advance Directive Response Recorded Date/ Time Living Will No April 02 1 4:26am Power of Agricultural Engineering Technician No April 02 021 4:26am Chief Complaint [...] 2024 10: 53am Rh negative status during [facility] h 2024 10:53am Seasonal allergies October 15, [...] section and content) DATE CREATED AUTHOR 01/20/2018 [facility] DATE CREATED AUTHOR AUTHOR'S ORGANIZ ATION 05/26/2021 [facility] DATE CREATED AUTHOR AUTHOR'S ORGANIZ ATION 12/16/2021 [facility] DATE CREATED AUTHOR AUTHOR'S ORGANIZ ATION 10/02/2024 [facility] DATE CREATED AUTHOR AUTHOR'S ORGANIZ ATION 01/03/2025 [facility] Goals (unrecognized section and content) Goals may [...] or prosecute any alcohol or drug abuse patient.[facility] HospitalIn the event this information is protected by the Federal Confidentiality of Alcohol and Drug Abuse Patient Records regulations: The Federal rules restrict any use of the information to criminally investigate or prosecute any alcohol or drug abuse patient.[facility] HospitalIn the event this information is protected by the Federal Confidentiality of Alcohol and Drug Abuse Patient Records regulations: The Federal rules restrict any use of the information to criminally investigate or prosecute any alcohol or drug abuse patient.[facility] HospitalIn the event this information is protected by the Federal Confidentiality of Alcohol and Drug Abuse Patient Records regulations: The Federal rules restrict any use of the information to criminally investigate or prosecute any alcohol or drug abuse patient.[facility] Reason for Visit (unrecogniz ed section and content) Reason Comments 6 Month Exam patient is here for 6 month physical Reason Comments Results Reason Comments Fatigue Care Teams (unrecognized sec tion and content) Doorperson Or Luggage Porter Relationship Specialty Start Date End Date Benson Das MD [address] [place] [id number] PCP - General Family Practice 05/16/21 Doorperson Or Luggage Porter Relationship Specialty Start Date End Date Benson Das MD [address] [place] [id number] PCP - General Family Practice 05/16/21 Doorperson Or Luggage Porter Relationship Specialty Start Date End Date Benson Das MD [address] [place] [id number] PCP - General Family Medicine 05/16/21 Doorperson Or Luggage Porter Relationship Specialty Start Date End Date Benson Das MD [address] [place] [id number] PCP - General Family Medicine 05/16/21 Team [...] Status: Inactive Member Role Status Dates Dr. Salyl Cerna MD Attending Provider Active Start: September [...] BE BASED ON THE PRIMARY CLINICAL RECORDS. [facility]. provides no warranty or guarantee of the accuracy or completeness of information in this document.
--- NOTE | 2025-01-16 20:57 | PCM.PN.BLA ---
Progress Note patient states that contractions are getting stronger. She states that if she were at home she would be heading back in. current tracing: FHT: Moderate variability reactive no decelerations category I tracing, there was one variable deceleration with a contraction [place]: q 1-3 min Contractions cx: 2/5-/-3 A/P: patient is making cervical change she declines vaginal after section plan to proceed with repeat section -she has been NPO 7 hours. (had some fruid at 2 pm today)
--- NOTE | 2025-01-16 21:00 | DCINST_ITS ---
Discharge Instructions Diet Discharge Diet: No restrictions DC O2, CPAP, BIPAP needs Home O2 Discharge instructions: No Dressing / Incision Discharge Activity: May Not Drive (for 2 weeks or while taking narcotic pain medications.), May Shower and May Take a Tub Bath (in 7 days.) May resume sexual activity in: 4-6 weeks Weight Bearing Status: Full weight bearing Lifting Restrictions: 20 pounds Dressing / Incision Call your doctor if your incision/area has: Continuous Slow Oozing, Sudden Increased Bleeding, Increased Pain/ Swelling, Increased Redness and Foul Smelling Discharge Call your doctor if you observe: Fever of 101 or Higher and Using more than 1 pad per hour Suture Line Care: Avoid Pulling/Pushing and Avoid Pinching/Bending Cleanse incision/area with: Soap & Water and Keep Dressing Clean & Dry Follow Up Care Please Follow Up With: Jeaneth Kramer DO When: Call [phone] to make an appointment for an incision check in 1-2 weeks. Test Results: Test results from this visit will be discussed in further detail at your follow- up appointment, if applicable. Discharge Plan Admission Admit Date/Time: 01/16/25 20:38 Primary Reason for Your Visit: section Attending Provider: Morenita Dickerson Primary Care Provider: Care PhysicianSara Primary Discharge Orders/Prescriptions Prescriptions: New oxycodone-acetaminophen [Percocet] 5-325 mg tablet 1 tab PO Q4H PRN (Reason: pain) 7 Days Qty: 20 0RF ibuprofen 800 mg tablet 800 mg PO Q8H PRN (Reason: pain) Qty: 30 0RF No Action cholecalciferol (vitamin D3) 25 mcg (1,000 unit) capsule 25 mcg PO DAILY Sambunikhil Elderberry 30-1.1-25 mg tablet,chewable 1 tab PO DAILY Prenatabs FA 1 tab PO/SL DAILY fexofenadine-pseudoephedrine 180-240 mg tablet extended release 24 hr 1 tab PO DAILY Referrals / Follow Up: Care Physician,No Primary [Primary Care Provider] - Disposition Disposition (needs filled in before D/C Order can be placed): Home, Self Care
[2025-01-16 21:26] LABS: Absolute Lymphocyte Count 1.16 X10^3/uL (0.83-4.51); Absolute Neutrophil Count 7.6 X10^3/uL (2.0-7.7); Basophil# 0.01 X10^3/uL; Basophil% 0.1 % (0-1); Eosinophil# 0.12 X10^3/uL; Eosinophils% 1.2 % (0-5); Hematocrit 38.5 % (37-47); Hemoglobin 12.4 g/dL (12.0-15.0); Lymphocyte # 1.16 X10^3/ul (0.83-4.51); Mean Corp Hgb Conc 32.2 g/dL (32-36); Mean Corpuscular Hgb 27.7 pg (27.0-32.0); Mean Corpuscular Volume 86.1 fL (81-99); Mean Platelet Vol. 11.2 fl (6.2-12.0); Monocyte# 0.75 X10^3/uL; Monocyte% 7.8 % (0-10); NRBC Flagged by Analyzer 0 % (0-5); Neutrophil # 7.55 X10^3/uL (2.7-7.7); Neutrophil % 78.1 % (47-70); Platelet Count 234 K/mm3 (150-450); RBC Distribution Width SD 43.9 fl (35.1-43.9); Red Blood Count 4.47 M/mm3 (4.2-5.4); White Blood Count 9.7 K/mm3 (4.4-11.0)
[2025-01-16] MEDS: Acetaminophen 500 MG Tablet PO (21:41)
[2025-01-16] MEDS: Sodium Citrate/Citric Acid 30 ML UDC PO (21:42)
[2025-01-16 21:53] LABS: Syphilis Antibodies Nonreactive (Nonreactive)
[2025-01-16] MEDS: Cefazolin 2 GM in 0.9% Normal Saline (100mL Bag) 100 ML IV (22:01)
--- NOTE | 2025-01-16 22:53 | OP.PCM_ITS ---
Assessment & Plan (1) labor in third trimester with delivery: (2) AMA (advanced maternal age) multigravida 35+: QUALIFIERS: Trimester: third trimester Qualified Code(s): O09.523 - Supervision of elderly multigravida, third trimester COMMENT: discussed delivery by 40 weeks, growth US at 36 (3) History of delivery, currently : COMMENT: x1, desires but will do whatever is safest, open to RLTCS if recommended wants to do plan for February 25 for repeat if no labor by then. 40 weeks 1 day)RLTCS scheduled for 02/25 @ 7:15 with JV (4) Rh negative status during : QUALIFIERS: Trimester: third trimester Qualified Code(s): O26.893 - Other specified related conditions, third trimester; Z67.91 - Unspecified blood type, Rh negative COMMENT: O-, Per Sharmaine baby is Rh - no need for Rhogam (5) Supervision of high-risk : QUALIFIERS: Trimester: third trimester Qualified Code(s): O09.93 - Supervision of high risk , unspecified, third trimester COMMENT: [id number], RENAE 02/24/25, vinay Lopez PC: Marsha, : Jason (6) : QUALIFIERS: Weeks of gestation: 32 weeks Qualified Code(s): Z3A.32 - 32 weeks gestation of COMMENT: NIPT low risk, declined carrier and ntd. Maternal Data Information RENAE Calculator Estimated Delivery Date Method Current WG Current Estimate 02/24/25 LMP (Certain) 35w 0d Other Estimates 02/23/25 Ultrasound #1 35w 1d Final RENAE: 02/24/25 Final RENAE Source: LMP Doctor Who Attended Delivery: Srinivasan Mosher Operative Report (OB) Details Procedure Type: low transverse Date of Procedure: 01/16/25 Procedure Start Time: 22:00 Procedure Stop Time: 22:53 Pre-Operative Diagnosis: Repeat Elective and Other ( labor and history of prior section ) Other Pre-Operative diagnosis: none Post-Operative Diagnosis: Same as Pre-operative diagnosis Classification: JORDAN Type of Anesthesia: Spinal Antibiotic Given: Ancef 2 grams IV x1 Drain: Charles to straight drain Estimated Blood Loss: 800cc Findings Description of surgery: The patient is a 34 y/o @ 34 weeks 3 days presented for contractions and was in observation for several hours. During her stay she dilated 1 cm and effaced. She declined Vaginal after and the decision was made to prodeed with a repeat . Spinal anesthesia was placed without difficulty. Charles catheter was placed. The patient was placed in the dorsal supine position with leftward tilt. Patient was prepped and draped in the normal sterile fashion. Pfannenstiel skin incision was made with the scalpel and carried through to the underlying layer of fascia with the scalpel. Fascia was nicked in the midline and the incision extended laterally. The rectus bellies were dissected off superiorly and inferiorly with out complication both sharply and bluntly. The peritoneum was entered digitally. The incision was stretched and a low transverse uterine incision was made with the scalpel. The 's head was delivered atraumatically followed by the anterior and posterior shoulders without complication the rest of the infant delivered. The cord was clamped and cut and the infant was handed off to awaiting nurse. The placenta was delivered spontaneously immediately following and was noted to be intact and have a three-vessel cord. The uterus was exteriorized cleared of all clots and debris, and the incision was closed in a double layer closure using #1 Vicryl and #1 Monocryl. The ovaries and fallopian tubes were noted to be within normal limits. The uterus was returned to the maternal abdomen and gutters were cleared of all clots and debris. The peritoneum was closed with 3-0 Monocryl in a running fashion. Fascia was closed with 0 PDS in a running fashion. Subcutaneous tissue was copiously irrigated and the skin was closed with 3-0 Monocryl in a subcuticular fashion. Mepilex dressing was applied without complication. Patient was taken to recovery in stable condition. Surgical findings: viable male Bronson Amniotic Membrane Rupture Type: Artificial Amniotic Fluid Description: Clear Placental Delivery Description: Spontaneous Placenta Disposition: [facility] Specimen collected: Yes Description of specimen(s) removed: placenta Cord Vessel Description: 3 Vessels Cord Entanglement: None A gender: Male (1 minute): 8 (5 minute): 9 Delayed Cord Clamping: Yes Videotape Recording Engineer lean process deployment consultant: Yes Publishing Manager: Kristyn Rogers Tasks completed by mailroom assistant: Closing and Retracting Additional regulatory affairs assistant?: No Complications Complications: No Admit VTE Documentation VTE Present on Admission: No VTE Mechan Device Prophylaxis: SCD's VTE Pharm Prophylaxis Ordered: No Multi Select Codes Urinary/Genital Urinary/Genital CPT Codes: 05800 Delivery [facility]
--- NOTE | 2025-01-16 23:15 | PLAC_PTH ---
PATIENT: STEFANIE TA LOC: WP U#:[id number] AGE/SX: 34/F ROOM: WP003 RE01/16/[address]: Morenita Dickerson CNM : 1990 BED: 1 DIS: 01/18/2025 SPEC #: [id number] RECD: 01/17/25 02:23 STATUS: SERA REMonae #: [id number] ELENITA: 01/16/25 23:[address]: Morenita Dickerson DEPT: SURGICAL PATHOLOGY RECD BY: Kevin Thorpe ENTERED: 01/17/25 08:37 SP TYPE: PLACENTA OTHR DR: No Primary Care Phys Tissues: A - Placenta, NOS Procedures: Surgery Specimen Level V HEADER OPERATION: Repeat section PRE-OP DIAGNOSIS: labor TISSUE SUBMITTED: A- Placenta MICROSCOPIC DIAGNOSIS A. Placenta, repeat section: * Eccentrically inserted and trivascular umbilical cord without active inflammation * Predominantly circummarginately inserted (80%) membranes without active inflammation * Mature (third trimester) placenta without active inflammation A. MICROSCOPIC DESCRIPTION Slides are reviewed. GROSS DESCRIPTION A.? Received in formalin labeled with the patient's name and date of is a 415.4 g, 17.1 x 16.0 x 3.3 cm slightly irregular, ovoid placental disc.? The membranes are galindo-pink to red and predominantly translucent with patchy opacity and a point of rupture located 4.1 cm from the disc edge; the membranes have approximately 80% circummarginate insertion and 20% marginal insertion.? The trivascular and hypercoiled umbilical cord measures 24.3 cm in length X 1.3 cm in diameter and inserts eccentrically, 2.9 cm from the disc edge.? The surface is dark purple-blue and somewhat dull with arborizing vasculature.? The maternal surface is dark red-brown with a focally torn and frayed appearance, and loosely adherent blood clot predominantly along the periphery.? Sectioning reveals dark red spongy parenchyma with focal hemorrhage and fibrin (<15%).? Surveyor Chain Helper sections are submitted as follows: A1: Membrane rollA2: Umbilical cordA3: PlacentaA4: Placenta with fibrin SC 01/17/2025 CPT:44676?
[2025-01-16] MEDS: Oxytocin 15 Units/NS 250ml 15 UNITS/250 ML IV.SOLN 83 UNITS IV (23:29)
[2025-01-17] VITALS (22 sets, daily range): BP systolic 104–133; BP diastolic 61–78; PULSE 58–99; RESP 14–18; TEMP 35.5–36.8; O2SAT 96–100
[2025-01-17] MEDS: 0.9% Saline Lock 10 ML Syringe IV (00:09)
[2025-01-17] MEDS: Ketorolac 30 MG/ML Syringe IV ×2 (00:09→05:29)
[2025-01-17] MEDS: Lactated Ringers 1,000 ML 100 ML IV (02:30)
[2025-01-17] MEDS: Acetaminophen 500 MG Tablet 1000 MG PO ×4 (03:29→21:46)
[2025-01-17 05:00] LABS: Pathology Specimen OB SEE PATHOLOGY REPORT
[2025-01-17 06:07] LABS: Hematocrit 35.2 % (37-47); Hemoglobin 11.5 g/dL (12.0-15.0); Mean Corp Hgb Conc 32.7 g/dL (32-36); Mean Corpuscular Hgb 28.1 pg (27.0-32.0); Mean Corpuscular Volume 86.1 fL (81-99); Mean Platelet Vol. 11.2 fl (6.2-12.0); Platelet Count 221 K/mm3 (150-450); RBC Distribution Width CV 14.1 % (11.6-14.6); RBC Distribution Width SD 43.8 fl (35.1-43.9); Red Blood Count 4.09 M/mm3 (4.2-5.4); White Blood Count 15.5 K/mm3 (4.4-11.0)
[2025-01-17] MEDS: Ondansetron 4 MG/2 ML Vial IV (06:23)
--- NOTE | 2025-01-17 08:28 | PN.OBGYN_ITS ---
Subjective Subjective Patient doing well without complaints. Tolerating PO. Ambulating and voiding without difficulty. Feeding well. Denies chest pain, shortness of breath, calf pain/swelling, fevers, chills, lightheadedness. Infant being transferred to [facility]. Objective Data Objective Data Vital Signs: Vital Signs Temp Pulse Resp BP Pulse Ox O2 Del Method 97.0 F L 80 16 118/76 98 Room Air 01/17/25 05:25 01/17/25 05:25 01/17/25 06:15 01/17/25 05:25 01/17/25 06:15 01/17/25 06:15 Oxygen Delivery Method Room Air Weight: 262 lb 8 oz Body Mass Index (BMI) 38.7 Intake & Output: Intake and Output for Last 24 Hours 01/15/25 01/16/25 01/17/25 23:59 23:59 23:59 Intake Total 1999 / 1999 676.67 / 676.67 Output Total 1800 / 1800 1400 / 1400 Balance 200 / 200 -723.33 / -723.33 Lab / Micro Data Attestation: I reviewed the patient's lab results. 01/17/25 05:50 Labs: Laboratory Results - last 24 hr 01/16/25 14:30: Urine Color Yellow, Urine Clarity Clear, Urine pH 7.0, Ur Specific Nickerson 1.010, Urine Protein Negative, Urine Glucose (UA) Normal, Urine Ketones Negative, Urine Occult Blood Negative, Urine Nitrite Negative, Urine Bilirubin Negative, Urine Urobilinogen Normal, Ur Leukocyte Esterase 100 H 01/16/25 19:30: WBC 9.7, RBC 4.47, Hgb 12.4, Hct 38.5, MCV 86.1, MCH 27.7, MCHC 32.2, RDW Std Deviation 43.9, RDW Coeff of Billie 14.0, Plt Count 234, MPV 11.2, Immature Gran % (Auto) 0.800, Neut % (Auto) 78.1 H, Lymph % (Auto) 12.0 L, [place] % (Auto) 7.8, Eos % (Auto) 1.2, Baso % (Auto) 0.1, Absolute Neuts (auto) 7.6, Absolute Lymphs (auto) 1.16, Nucleated RBC % 0, Syphilis Total Ab Nonreactive, Blood Type O NEGATIVE, Antibody Screen NEGATIVE 01/17/25 05:50: WBC 15.5 H, RBC 4.09 L, Hgb 11.5 L, Hct 35.2 L, MCV 86.1, MCH 28.1, MCHC 32.7, RDW Std Deviation 43.8, RDW Coeff of Billie 14.1, Plt Count 221, MPV 11.2 ROS Constitutional Constitutional: Reports systems reviewed and no addt'l complaints, except as documented; Denies anorexia or headache(s) Cardiovascular Cardiovascular: Reports systems reviewed and no addt'l complaints, except as documented; Denies dizziness, dyspnea, nausea or tachypnea Respiratory/Chest Respiratory/Chest: Reports systems reviewed and no addt'l complaints, except as documented; Denies cough, dyspnea, shortness of breath at rest or tachypnea Gastrointestinal Gastrointestinal: Reports systems reviewed and no addt'l complaints, except as documented; Denies abdominal pain, constipation or nausea Genitourinary Genitourinary: Reports systems reviewed and no addt'l complaints, except as documented; Denies burning urination, difficulty urinating, dysuria, urinary frequency or urinary incontinence Musculoskeletal Musculoskeletal: Reports systems reviewed and no addt'l complaints, except as documented Integumentary Integumentary: Reports systems reviewed and no addt'l complaints, except as documented Neurologic Neurologic: Reports systems reviewed and no addt'l complaints, except as documented; Denies abnormal speech, dizziness or headache(s) Psychiatric Psychiatric: Reports systems reviewed and no addt'l complaints, except as documented Endocrine Endocrinology: Reports systems reviewed and no addt'l complaints, except as documented Hematologic/Lymphatic Hematologic/Lymphatic: Reports systems reviewed and no addt'l complaints, except as documented Physical Exam Const alert, oriented x3 and no apparent distress Neck full ROM Resp normal respiratory effort, normal air movement and no retractions Effort and Inspection: able to speak in complete sentences and symmetric chest movement GI soft to palpation Inspection: incision intact Bladder / Kidney Exam: bladder normal to palpation Uterus Palpation: uterus fundus firm Extremity normal to inspection and full ROM Psych mental status grossly normal, thought process normal and cooperative Assessment & Plan (1) Status post section: COMMENT: 01/16/25- JV. 34 week labor PLAN: s/p LTCS PPD # 1 1. routine post care 2. breast feeding- support given 3. rh neg- no rhogam needed 4. rubella immune (2) labor in third trimester with delivery: (3) Threatened labor: (4) AMA (advanced maternal age) multigravida 35+: QUALIFIERS: Trimester: third trimester Qualified Code(s): O09.523 - Supervision of elderly multigravida, third trimester COMMENT: discussed delivery by 40 weeks, growth US at 36 (5) History of delivery, currently : COMMENT: x1, desires but will do whatever is safest, open to RLTCS if recommended wants to do plan for February 25 for repeat if no labor by then. 40 weeks 1 day)RLTCS scheduled for 02/25 @ 7:15 with JV (6) Obesity affecting : QUALIFIERS: Trimester: third trimester Obesity type affecting : unspecified obesity Qualified Code(s): O99.213 - Obesity complicating , third trimester COMMENT: BMI 33.7, HgBA1C ordered w/NOB labs (7) Rh negative status during : QUALIFIERS: Trimester: third trimester Qualified Code(s): O26.893 - Other specified related conditions, third trimester; Z67.91 - Unspecified blood type, Rh negative COMMENT: O-, Per Sharmaine baby is Rh - no need for Rhogam (8) Supervision of high-risk : QUALIFIERS: Trimester: third trimester Qualified Code(s): O09.93 - Supervision of high risk , unspecified, third trimester COMMENT: [id number], RENAE 02/24/25, boy John PC: Marsha, : Jason (9) : QUALIFIERS: Weeks of gestation: 32 weeks Qualified Code(s): Z 3A.32 - 32 weeks gestation of COMMENT: NIPT low risk, declined carrier and ntd. (10) Irritable bowel syndrome: (11) Seasonal allergies: Charges/Coding Multi Select Codes Urinary/Genital Urinary/Genital CPT Codes: No Charge
[2025-01-17] MEDS: Senna/Docusate Sodium 1 Tablet PO (14:08)
[2025-01-17] MEDS: Ibuprofen 600 MG Tablet PO ×2 (14:10→19:35)
--- NOTE | 2025-01-17 16:44 | NURSING ---
pt has noticed she has redness to her face and upper arms, redness also noticed to her upper chest. pt states ibuprofen she received earlier has been helping
[2025-01-17] MEDS: DiphenhydrAMINE 25 MG Capsule PO (17:32)
[2025-01-18] MEDS: Ibuprofen 600 MG Tablet PO ×2 (01:51→08:12)
[2025-01-18 01:54] VITALS: BP 118/62; PULSE 78; RESP 16; TEMP 36.1; O2SAT 97
[2025-01-18] MEDS: Acetaminophen 500 MG Tablet 1000 MG PO ×2 (04:00→09:56)
--- NOTE | 2025-01-18 07:25 | PCM.PN.OB ---
Subjective Subjective Patient doing well without complaints. Tolerating PO. Ambulating and voiding without difficulty. Feeding well. Denies chest pain, shortness of breath, calf pain/swelling, fevers, chills, lightheadedness. her baby was transferred to [place] and she wants to be discharged today Objective Data Objective Data Vital Signs: Vital Signs Temp Pulse Resp BP Pulse Ox O2 Del Method 97.0 F L 78 16 118/62 97 Room Air 01/18/25 01:54 01/18/25 01:54 01/18/25 01:54 01/18/25 01:54 01/18/25 01:54 01/18/25 01:54 Oxygen Delivery Method Room Air Weight: 262 lb 8 oz Body Mass Index (BMI) 38.7 Intake & Output: Intake and Output for Last 24 Hours 01/16/25 01/17/25 01/18/25 23:59 23:59 23:59 Intake Total 1999 / 1999 676.67 / 676.67 Output Total 1800 / 1800 1900 / 1900 Balance 200 / 200 -1223.33 / -1223.33 Lab / Micro Data 01/17/25 05:50 ROS Constitutional Constitutional: Denies chills, fatigue, fever(s), poor appetite or weakness Eyes Eyes: Denies blurry vision, change in vision, seeing flashes or spots in vision ENT HEENT: Denies dizziness, headache(s), loss taste/smell or sore throat Cardiovascular Cardiovascular: Denies chest pain, dizziness, dyspnea, irregular heart rhythm, palpitations or rapid heart rate Respiratory/Chest Respiratory/Chest: Denies chest tightness, cough, dyspnea or breast pain Gastrointestinal Gastrointestinal: Denies abdominal pain, constipation or vomiting Genitourinary Genitourinary: Denies dysuria or flank pain Musculoskeletal Musculoskeletal: Denies difficulty walking, joint pain, limited range of motion or numbness Neurologic Neurologic: Denies abnormal movements, abnormal speech, dizziness, numbness, seizure-like activity or syncope Psychiatric Psychiatric: Denies anxiety, behavioral changes, change in appetite, confusion, depression or suicidal thoughts Physical Exam Const alert, oriented x3 and no apparent distress General Appearance: cooperative and comfortable Resp normal respiratory effort Cardio regular rate GI normal to inspection, nondistended, normoactive bowel sounds GI Narrative: uterus is firm below umbilicus Palpation: soft Back/Spine no CVA tenderness and thoraco-lumbar ROM normal Extremity normal to inspection, no clubbing, cyanosis or edema, no calf tenderness and no pedal edema Psych mental status grossly normal, thought process normal, cooperative, affect normal, speech normal, activity/motor behavior normal, denies homicidal ideation and denies suicidal ideation Assessment & Plan (1) labor in third trimester with delivery: (2) Status post section: COMMENT: 01/16/25- JV. 34 week labor (3) Threatened labor: (4) AMA (advanced maternal age) multigravida 35+: QUALIFIERS: Trimester: third trimester Qualified Code(s): O09.523 - Supervision of elderly multigravida, third trimester COMMENT: discussed delivery by 40 weeks, growth US at 36 (5) History of delivery, currently : COMMENT: x1, desires but will do whatever is safest, open to RLTCS if recommended wants to do plan for February 25 for repeat if no labor by then. 40 weeks 1 day)RLTCS scheduled for 02/25 @ 7:15 with JV (6) Obesity affecting : QUALIFIERS: Trimester: third trimester Obesity type affecting : unspecified obesity Qualified Code(s): O99.213 - Obesity complicating , third trimester COMMENT: BMI 33.7, HgBA1C ordered w/NOB labs (7) Rh negative status during : QUALIFIERS: Trimester: third trimester Qualified Code(s): O26.893 - Other specified related conditions, third trimester; Z67.91 - Unspecified blood type, Rh negative COMMENT: O-, Per Sharmaine baby is Rh - no need for Rhogam (8) Supervision of high-risk : QUALIFIERS: Trimester: third trimester Qualified Code(s): O09.93 - Supervision of high risk , unspecified, third trimester COMMENT: [id number], RENAE 02/24/25, boy John PC: Marsha, : Jason (9) : QUALIFIERS: Weeks of gestation: 32 weeks Qualified Code(s): Z3A.32 - 32 weeks gestation of COMMENT: NIPT low risk, declined carrier and ntd. (10) Irritable bowel syndrome: (11) Seasonal allergies: PLAN: Plan s/p LTCS PPD # 2 1. routine post care 2. breast feeding- support given 3. rh negative work up performed 4. rubella immune 5. ok to dc so she may get a ride to [place] to be with her baby.
[2025-01-18 08:00] VITALS: BP 129/82; PULSE 72; RESP 18; TEMP 36.2
[2025-01-18] MEDS: Senna/Docusate Sodium 1 Tablet PO (09:53)
[2025-01-18 12:50] VITALS: BP 130/82; PULSE 78; RESP 15; TEMP 36.4
== END 2025-01-18 12:55 | disposition home or self-care (01) | DRG 788 ==
LOC: WPOUT 20:43 → WP 20:43
PROVIDERS: Obstetrics & Gynecology; Admitting Provider Registered Nurse; Visit Provider Registered Nurse
DX: O60.14X0 Preterm labor third trimester with preterm delivery third trimester, not applicable or unspecified (principal); O99.214 Obesity complicating childbirth; J30.2 Other seasonal allergic rhinitis; K58.9 Irritable bowel syndrome, unspecified; O99.52 Diseases of the respiratory system complicating childbirth; Z37.0 Single live birth; O99.62 Diseases of the digestive system complicating childbirth; Z67.91 Unspecified blood type, Rh negative; Z3A.34 34 weeks gestation of pregnancy; O26.893 Other specified pregnancy related conditions, third trimester
CPT/HCPCS: 59025; 59050; 81002; 85025; 85027; 86780; 86850; 86900; 86901; 88307; 93005; 99221; A4216; G0378; J0702; J2405